=== PATIENT | female | born 1965 | race Caucasian/White ===

== ENCOUNTER 2018-07-31 13:42 | Emergency (ER) | payer OTHER ==
[~2018-07-31] VITALS: Ht 167.6 cm; Wt 136.1 kg
[~2018-07-31 13:42] MED LIST: ALBU90OI INH; ARIP10 PO; ASPI81EC PO; AZIT250 PO; BENZ100A PO; BUSP15 PO; BUSP5 PO; CEPH500 PO; CIPR500 PO; CITA20 PO; CLIN300 PO; CLON1 PO; CRUTCH2 XX; DULO30 PO; FLUO10 PO; GABA100 PO; GUAI600T33 PO; HYDACE5 PO; HYDACE5325 PO; IBUP800 PO; LORA10ER PO; METR500 PO; Motrin600 MG PO; Mucinex600 MG PO; NAPR550 PO; Norco 5-325 Ta1 EACH PO; OMEP20ER PO; OXYACE5T PO; PRAZ1 PO; Percocet 5-3251 EACH PO; QUET100 PO; QUET200 PO; ROPI2 PO; RXHYD5325 PO; RXTRAM50 PO; SULTRIDS PO; TRAM50 PO; TRAZ50; Ultram50 MG PO; Zofran Odt4 MG SL; [UNRECOGNIZED DRUG - REMARK]
[2018-07-31 15:32] LABS: BASOPHILS ABSOLUTE AUTO 0.04 K/mm3 (0.00-0.23); BASOPHILS PERCENT AUTO 1 % (0-2); EOSINOPHILS ABSOLUTE AUTO 0.32 K/mm3 (0.00-0.68); EOSINOPHILS PERCENT AUTO 5 % (0-6); Hematocrit 43.7 % (33.0-51.0); Hemoglobin 14.2 g/dL (11.5-16.0); IMMATURE GRAN ABSOLUTE AUTO 0.04 K/mm3 (0.00-0.10); IMMATURE GRAN PERCENT AUTO 1 % (0-1); LYMPHOCYTES ABSOLUTE AUTO 1.85 K/mm3 (0.84-5.20); LYMPHOCYTES PERCENT AUTO 29 % (21-46); MONOCYTES ABSOLUTE AUTO 0.52 K/mm3 (0.16-1.47); MONOCYTES PERCENT AUTO 8 % (4-13); Mean Corpuscular HGB Conc 32.5 g/dL (31.5-36.5); Mean Corpuscular Volume 92 fL (80-100); Mean Platelet Volume 9.8 fL (9.1-12.4); NEUTROPHILS ABSOLUTE AUTO 3.68 K/mm3 (1.96-9.15); NEUTROPHILS PERCENT AUTO 57 % (41-73); Platelet Count 185 K/mm3 (150-400); RDW Coefficient Variation 11.7 % (11.7-14.2); RDW Standard Deviation 39.6 fL (35.1-46.3); Red Blood Cell Count 4.74 M/mm3 (3.80-5.20); White Blood Cell Count 6.45 K/mm3 (4.00-11.30)
[2018-07-31 15:50] LABS: Alanine Aminotransfer (ALT/SGP 68 U/L (12-78); Albumin, Blood 3.4 g/dL (3.4-5.0); Albumin/Globulin Ratio 0.7 (0.8-1.8); Alk Phos 163 U/L (50-136); Anion Gap 8 mmol/L (6-16); Aspartate Aminotrans (AST/SGOT 39 U/L (12-37); Bilirubin, Total 0.4 mg/dL (0.1-1.0); Blood Urea Nitrogen 13 mg/dL (8-24); Bun/Creatinine Ratio 18.4 (12.0-20.0); CO2, Blood 24 mmol/L (21-32); Calcium, Blood 8.9 mg/dL (8.5-10.1); Chloride, Blood 100 mmol/L (98-108); Creatinine, Blood 0.71 mg/dL (0.40-1.00); Glomerular Filtration Rate >60 (60-); Glucose, Blood 319 mg/dL (70-99); Potassium, Blood 4.1 mmol/L (3.5-5.5); Sodium, Blood 132 mmol/L (136-145); Total Protein, Blood 8.4 g/dL (6.4-8.2)
[2018-07-31 17:06] LABS: Source, Urine Clean Catch
[2018-07-31 17:12] LABS: Bilirubin, Urine Neg (Neg); Blood, Urine 1+ (Neg); Glucose Qualitative, Urine 4+ (Neg); Ketones, Urine Neg (Neg); Leukocyte Esterase, Urine Neg (Neg); Nitrite, Urine Neg (Neg); Protein, Urine Neg (Neg); Urobilinogen, Urine NORM (Normal)
[2018-07-31 17:38] LABS: Appearance, Urine Clear (Clear); Color, Urine Yellow (P-Yellow); Red Blood Cells, Urine 0-2 /hpf (0-2)
[2018-07-31 17:39] LABS: Bacteria Many /hpf; Squamous Epithelial Cells Mod /hpf (Few)
== END 2018-07-31 21:07 | disposition home or self-care (01) ==
LOC: ER 13:42
PROVIDERS: Physician Assistant
DX: R73.9 Hyperglycemia, unspecified (principal); R11.0 Nausea; F31.9 Bipolar disorder, unspecified; F17.210 Nicotine dependence, cigarettes, uncomplicated; Z79.899 Other long term (current) drug therapy
CPT/HCPCS: 36415; 80053; 81001; 82947; 83036; 85025; 87086; 96360; 99284-25; J7030

== ENCOUNTER 2018-12-18 19:08 | Emergency (ER) | payer OTHER ==
[~2018-12-18] VITALS: Ht 167.6 cm; Wt 133.8 kg
[2018-12-18] MEDS ORDERED: GABA300 PO (19:38)
[2018-12-18] MEDS ORDERED: NAPR500 PO (19:38)
[2018-12-18] MEDS ORDERED: METF500 PO (19:39)
[2018-12-18] MEDS ORDERED: Percocet 5-3251 EACH PO (21:39)
== END 2018-12-18 22:07 | disposition home or self-care (01) ==
LOC: ER 19:08
DX: S76.012A Strain of muscle, fascia and tendon of left hip, initial encounter (principal); S39.012A Strain of muscle, fascia and tendon of lower back, initial encounter; S89.92XA Unspecified injury of left lower leg, initial encounter; F31.9 Bipolar disorder, unspecified; F41.0 Panic disorder [episodic paroxysmal anxiety]; F17.210 Nicotine dependence, cigarettes, uncomplicated; Z88.8 Allergy status to other drugs, medicaments and biological substances; W01.0XXA Fall on same level from slipping, tripping and stumbling without subsequent striking against object, initial encounter
CPT/HCPCS: 29505; 72100; 73502; 73562-LT; 99283-25; A9270-GY

== ENCOUNTER 2020-08-27 23:52 | Inpatient (IN) | payer OTHER ==
[~2020-08-27] VITALS: Ht 167.6 cm; Wt 120.2 kg
[~2020-08-27 23:52] MED LIST changes: +GABA300 PO; +METF500 PO; +NAPR500 PO
[2020-08-28 01:58] LABS: BASOPHILS ABSOLUTE AUTO 0.05 K/mm3 (0.00-0.23); BASOPHILS PERCENT AUTO 0 % (0-2); EOSINOPHILS ABSOLUTE AUTO 0.07 K/mm3 (0.00-0.68); EOSINOPHILS PERCENT AUTO 1 % (0-6); Hematocrit 43.9 % (33.0-51.0); Hemoglobin 14.1 g/dL (11.5-16.0); IMMATURE GRAN PERCENT AUTO 1 % (0-1); LYMPHOCYTES ABSOLUTE AUTO 0.98 K/mm3 (0.84-5.20); LYMPHOCYTES PERCENT AUTO 8 % (21-46); MONOCYTES ABSOLUTE AUTO 0.79 K/mm3 (0.16-1.47); MONOCYTES PERCENT AUTO 7 % (4-13); Mean Corpuscular HGB 29.4 pg (26.0-34.0); Mean Corpuscular HGB Conc 32.1 g/dL (31.5-36.5); Mean Corpuscular Volume 92 fL (80-100); Mean Platelet Volume 11.1 fL (9.1-12.4); NEUTROPHILS ABSOLUTE AUTO 10.22 K/mm3 (1.96-9.15); NEUTROPHILS PERCENT AUTO 84 % (41-73); Platelet Count 147 K/mm3 (150-400); RDW Coefficient Variation 11.5 % (11.7-14.2); RDW Standard Deviation 39.1 fL (35.1-46.3); White Blood Cell Count 12.21 K/mm3 (4.00-11.30)
[2020-08-28 02:33] LABS: Anion Gap 9 mmol/L (6-16); Blood Urea Nitrogen 7 mg/dL (8-24); Bun/Creatinine Ratio 11.2 (12.0-20.0); CO2, Blood 23 mmol/L (21-32); Calcium, Blood 8.7 mg/dL (8.5-10.1); Chloride, Blood 104 mmol/L (98-108); Creatinine, Blood 0.62 mg/dL (0.40-1.00); Glomerular Filtration Rate >60 (60-); Glucose, Blood 502 mg/dL (70-99); Potassium, Blood 3.5 mmol/L (3.5-5.5); Sodium, Blood 136 mmol/L (136-145)
[2020-08-28 03:55] LABS: Influenza A, PCR NEGATIVE (NEGATIVE); Influenza B, PCR NEGATIVE (NEGATIVE); Resp Syncytial Virus, PCR NEGATIVE (NEGATIVE); SARS-Cov-2 (COVID-19) PCR, MMC NEGATIVE (NEGATIVE)
--- NOTE | 2020-08-28 07:16 | NUR ---
SHIFT SUMMARY S/P R PERIRECTAL ABSCESS, A/O X4, VSS, CRITICAL LACTIC ACID RETURNED TO NORMAL RANGE AFTER ORDERED FLUID BOLUS, INDEPENDENT IN ROOM, LIFE PARTNER AT BEDSIDE TO ASSIST W/ HIGH ANXIETY AND REPORTED "FEAR OF HOSPITALS", VOIDING WELL, PASSING FLATUS, PAIN WELL CONTROLLED PER EMAR. ABSCESS STARTED BLEEDING SHORTLY AFTER ARRIVING TO THE UNIT, CLEANED RECTAL/ALEC AREA W/ WOUND CLEANSER AND STERILE 4X4 GUAZE, PLACE SOME STERILE GAUZE NEAR RECTUM TO ABSORB ANY DRAINING FLUIDS, DRAINAGE PRIMARILY SANGUINEOUS W/ A FEW SMALL CLOTS AND A MILD FOUL ODOR. PT REPORTS HAVING YEAST LATELY IN HER VAGINA, STATED SHE JUST WANTED US TO BE AWARE OF IT, WILL RELAY TO DAY RN TO BE ADRESSED BY DR. SAI OLIVARES IN REACH, WILL CONTINUE TO MONITOR AND REPORT TO ONCOMING DAY RN.
--- NOTE | 2020-08-28 10:23 | NUR ---
dr rojas in to see pt. orders obtained
--- NOTE | 2020-08-28 10:40 | NUR ---
PROVIDED FRESH ICE FOR PT'S HEADACHE
--- NOTE | 2020-08-28 10:41 | NUR ---
PROVIDED ICEPACK FOR PT HEADACHE
[2020-08-28 10:45] LABS: Anion Gap 10 mmol/L (6-16); Blood Urea Nitrogen 6 mg/dL (8-24); Bun/Creatinine Ratio 10.2 (12.0-20.0); CO2, Blood 21 mmol/L (21-32); Calcium, Blood 8.5 mg/dL (8.5-10.1); Chloride, Blood 109 mmol/L (98-108); Creatinine, Blood 0.59 mg/dL (0.40-1.00); Glomerular Filtration Rate >60 (60-); Glucose, Blood 330 mg/dL (70-99); Potassium, Blood 3.6 mmol/L (3.5-5.5); Sodium, Blood 140 mmol/L (136-145)
[2020-08-28 11:17] LABS: Source, Urine Clean Catch
[2020-08-28 11:31] LABS: Bilirubin, Urine Neg (Neg); Blood, Urine 4+ (Neg); Glucose Qualitative, Urine 4+ (Neg); Ketones, Urine 4+ (Neg); Leukocyte Esterase, Urine 1+ (Neg); Nitrite, Urine Neg (Neg); Protein, Urine 1+ (Neg); Specific Gravity, Urine 1.015 (1.003-1.022); Urobilinogen, Urine NORM (Normal)
[2020-08-28 11:57] LABS: U Amphetamine Screen Not Detected; U Barbituate Screen Not Detected; U Benzodiazapine Screen DETECTED; U Cannabinoids Screen DETECTED; U Cocaine Screen Not Detected; U Methadone Screen Not Detected; U Methamphetamine Screen Not Detected; U Opiates Screen DETECTED; U Phencyclidine Screen Not Detected
[2020-08-28 11:58] LABS: U Buprenorphine Screen Not Detected; U Oxycodone Screen Not Detected; U Propoxyphene Screen Not Detected
[2020-08-28 12:00] LABS: Appearance, Urine Clear (Clear); Color, Urine Yellow (P-Yellow)
[2020-08-28 12:02] LABS: Bacteria Few /hpf; Squamous Epithelial Cells Few /hpf (Few)
--- NOTE | 2020-08-28 12:44 | NUR ---
PT TO OR
--- NOTE | 2020-08-28 14:36 | NUR ---
08/28/20 1436 LALADINA RHODES PRE OP ANTIBIOTIC GIVEN IN PRE OP PRIOR TO PROCEDURE
--- NOTE | 2020-08-28 15:16 | NUR ---
PT ARRIVED TO UNIT FROM PACU. A&OX4. REPORTS PERINEAL/BUTTOCK PAIN IMPROVED. C/O OF [place]. PROVIDED WATER, ICE CHIPS AND JELLO. SBP IN 90S. PT ASYMPTOMATIC. IV FLUIDS INFUSING. MODERATE AMT DRAINAGE TO GAUZE FROM DRAIN. ADVISED PT TO CALL BEFORE GETTING UP FOR THE FIRST TIME DUE TO LINES/NIBP. LIFE PARTNER AT BEDSIDE.
--- NOTE | 2020-08-28 16:20 | NUR ---
PT UP TO RESTROOM VOIDED 400 ML DARK YELLOW URINE. NEW GAUZE PLACED IN MESH UNDERWEAR. NOW BACK TO BED. CALL LIGHT IN REACH.
--- NOTE | 2020-08-28 17:18 | NUR ---
SUMMARY PT S/P I&D THIS SHIFT. PT REPORTS FEELING IMPROVED AFTER PROCEDURE. VSS. TOLERATING PO. HAS BEEN UP TO VOID AND NEW GAUZE PLACED IN MESH UNDERWEAR. HOSPITALIST CONSULT OBTAINED TODAY AND ORDERS PLACED TO MANAGE BLOOD SUGARS. PT PLEASANT AND COOPERATIVE. LIFE PARTNER ROOMING IN. CALL LIGHT IN REACH.
--- NOTE | 2020-08-29 06:00 | NUR ---
SHIFT SUMMARY POD1 PERIRECTAL I&D, A/O X4, VSS, TOLERATING PO, VOIDING WELL, NO BM THIS SHIFT, DENIES N/V, DRESSING CHANGED THIS SHIFT PER ORDER W/ SMALL AMT SS DRAINAGE. PT CONTINUES TO BE ANXIOUS, LIFE PARTNER AT BEDSIDE APPEARS TO BE BENEFICIAL IN HELPING KEEP PT CALM. PLAN TO DISCHARGE TODAY 08/29/20 PER REPORT. CALL LIGHT IN REACH, WILL CONTINUE TO MONITOR AND REPORT TO ONCOMING DAY RN.
--- NOTE | 2020-08-29 09:03 | NUR ---
DR DE LA TORRE HERE TO SEE PT.
--- NOTE | 2020-08-29 12:06 | NUR ---
DR MYERS HERE TO SEE PT.
--- NOTE | 2020-08-29 12:20 | NUR ---
DR MYERS BEEN TO SEE PT, REPORTED TO HAVE HOSPITALIST ORDER DIABETIC MEDICATION FOR DISCHARGE. DR DE LA TORRE NOTIFIED.
--- NOTE | 2020-08-29 13:07 | NUR ---
Advance Directive(AD) education conducted. Upon receiving an admit referral for AD training, I visist patient. Patient is sitting up in bed and alert. Patient's life partner, Maya is bedside. Patient tells me about her medical issues while Maya asks many important questions about the AD. We discuss the content of the AD, the notary and witness requirements and the filing process. Patient and Maya exhibit clear comprehension an state that they will fill it out. Maya asks for a second AD to fill out for herself which I gladly supply. I will continue to remain available to patient and family.
[2020-08-29] MEDS ORDERED: BASAGLAR K100 UNIT/1 SC (17:10)
[2020-08-29] MEDS ORDERED: AMOCLA875 PO (17:11)
[2020-08-29] MEDS ORDERED: Norco 5-325 Ta1 EACH PO (17:11)
[2020-08-29] MEDS ORDERED: HUMALOG KW100 UNIT/1 SQ (17:13)
[2020-08-29] MEDS ORDERED: ATOR20 PO (17:16)
[2020-08-29] MEDS ORDERED: PROBIOTIC PO (17:17)
--- NOTE | 2020-08-29 17:35 | NUR ---
DISCHARGE: PT/FAMILY REPORTS UNDERSTANDING DISCHARGE INSTRUCTIONS WELL MONITORING AND RECORDING BLOOD SUGAR, WELL GIVING CBG MEDICATION ORDERED. PT SENT WITH BELONGINGS, SCRIPTS, PAPERWORK. OTHER MEDICATIONS CALLED TO [facility] IN [place] PER PT REQ. PT ALSO SENT WITH DRESSING SUPPLIES. PT BEEN SEEN BY CERTIFIED ORTHOTIST AND OTHER STAFF WHO ALSO ASSISTED WITH DIABETES EDUCATION. PT OUT BY W/C. IV OUT WNL. NO OTHER IV IN PLACE.
== END 2020-08-29 17:35 | disposition home or self-care (01) | DRG 854 ==
LOC: ER 23:52 → SURS 08-28 02:01
PROVIDERS: Nurse Practitioner Acute Care; Student in an Organized Health Care Education/Training Program; ADMIT Surgery
PROC: 0D9P0ZZ Drainage of Rectum, Open Approach (ICD-10-PCS; principal; 2020-08-28 12:15)
DX: A41.9 Sepsis, unspecified organism (principal); K61.1 Rectal abscess; L03.317 Cellulitis of buttock; Z68.41 Body mass index [BMI] 40.0-44.9, adult; Z20.822 Contact with and (suspected) exposure to COVID-19; E11.65 Type 2 diabetes mellitus with hyperglycemia; Z87.891 Personal history of nicotine dependence; F31.9 Bipolar disorder, unspecified; Z91.19 Patient's noncompliance with other medical treatment and regimen; F41.1 Generalized anxiety disorder; E66.01 Morbid (severe) obesity due to excess calories; E78.5 Hyperlipidemia, unspecified; R65.20 Severe sepsis without septic shock
CPT/HCPCS: 0241U; 36415; 72193; 80048; 81001; 81025; 82947; 83036; 83605; 85025; 87040; 96374; 96375; 99284-25; A9270; J0295; J1100; J1815; J2060; J2250; J2270; J2405; J2704; J2710; J3010; J7120; Q2038; Q9967

== ENCOUNTER 2024-04-05 18:55 | Emergency (ER) | payer OTHER ==
[~2024-04-05] VITALS: Ht 167.6 cm; Wt 106.6 kg
[~2024-04-05 18:55] MED LIST changes: +AMOCLA875 PO; +ATOR20 PO; +BASAGLAR K100 UNIT/1 SC; +GLIMEPIRIDE2 M2 PO; +GLIP10ER PO; +HUMALOG KW100 UNIT/1 SQ; +Lantus100 UNIT/1 SC; +PROBIOTIC PO; +SEMGLEE (Y100 UNIT/2 SQ
[2024-04-05] MEDS ORDERED: Ondansetron HCl 2 MG / ML 2ML Vial IV ONE (21:10)
[2024-04-05] MEDS ORDERED: Morphine Sulfate 4 MG/1 ML Injection IV ONE (21:10)
[2024-04-05 21:11] LABS: BASOPHILS ABSOLUTE AUTO 0.05 K/mm3 (0.00-0.23); BASOPHILS PERCENT AUTO 1 % (0-2); EOSINOPHILS ABSOLUTE AUTO 0.42 K/mm3 (0.00-0.68); EOSINOPHILS PERCENT AUTO 6 % (0-6); Hematocrit 41.8 % (33.0-51.0); Hemoglobin 14.1 g/dL (11.5-16.0); IMMATURE GRAN ABSOLUTE AUTO 0.05 K/mm3 (0.00-0.10); IMMATURE GRAN PERCENT AUTO 1 % (0-1); LYMPHOCYTES ABSOLUTE AUTO 1.84 K/mm3 (0.84-5.20); LYMPHOCYTES PERCENT AUTO 25 % (21-46); MONOCYTES ABSOLUTE AUTO 0.57 K/mm3 (0.16-1.47); MONOCYTES PERCENT AUTO 8 % (4-13); Mean Corpuscular HGB 29.2 pg (26.0-34.0); Mean Corpuscular HGB Conc 33.7 g/dL (31.5-36.5); Mean Corpuscular Volume 87 fL (80-100); Mean Platelet Volume 10.7 fL (9.1-12.4); NEUTROPHILS PERCENT AUTO 60 % (41-73); Platelet Count 174 K/mm3 (150-400); RDW Coefficient Variation 12.1 % (11.7-14.2); RDW Standard Deviation 38.5 fL (35.1-46.3); Red Blood Cell Count 4.83 M/mm3 (3.80-5.20); White Blood Cell Count 7.43 K/mm3 (4.00-11.30)
[2024-04-05 21:24] LABS: Albumin, Blood 3.4 g/dL (3.4-5.0); Albumin/Globulin Ratio 0.7 (0.8-1.8); Bilirubin, Total 0.6 mg/dL (0.1-1.0); Bun/Creatinine Ratio 20.8 (12.0-20.0); Calcium, Blood 10.3 mg/dL (8.5-10.1); Creatinine, Blood 0.63 mg/dL (0.40-1.00); Globulin, Blood 4.7 g/dL (2.2-4.0); Potassium, Blood 3.8 mmol/L (3.5-5.5); Total Protein, Blood 8.1 g/dL (6.4-8.2)
[2024-04-05 23:17] LABS: Source, Urine Clean Catch
[2024-04-05 23:20] LABS: Bilirubin, Urine Neg (Neg); Blood, Urine Neg (Neg); Glucose Qualitative, Urine Neg (Neg); Ketones, Urine Neg (Neg); Nitrite, Urine Neg (Neg); Urobilinogen, Urine NORM (Normal)
[2024-04-05 23:37] LABS: Leukocyte Esterase, Urine Neg (Neg); Protein, Urine 1+ (Neg); pH, Urine 6.5 (5.0-8.0)
[2024-04-05 23:44] LABS: Appearance, Urine Clear (Clear); Color, Urine Pale Yellow (P-Yellow)
[2024-04-06] VITALS: BP 134/93
[2024-04-06] MEDS ORDERED: FAMO20 PO (00:25)
[2024-04-06] MEDS ORDERED: ONDA4 PO (00:25)
== END 2024-04-06 00:48 | disposition home or self-care (01) ==
LOC: ER 18:55
PROVIDERS: Student in an Organized Health Care Education/Training Program
DX: K52.9 Noninfective gastroenteritis and colitis, unspecified (principal); Z87.891 Personal history of nicotine dependence; Z79.4 Long term (current) use of insulin; Z88.1 Allergy status to other antibiotic agents
CPT/HCPCS: 71260; 74177; 80053; 82947; 83690; 84484; 85025; 85379; 87086; 96374-59; 96375; 99284-25; J2270; J2405; Q9967

== ENCOUNTER 2024-05-07 21:38 | Inpatient (IN) | payer OTHER ==
[~2024-05-07] VITALS: Ht 165.1 cm; Wt 96.2 kg
[~2024-05-07 21:38] MED LIST changes: +FAMO20 PO; +ONDA4 PO
[2024-05-07] MEDS ORDERED: Ondansetron HCl 2 MG / ML 2ML Vial IV ONE (21:50)
[2024-05-07 22:05] LABS: BASOPHILS PERCENT AUTO 0 % (0-2); EOSINOPHILS PERCENT AUTO 0 % (0-6); Hematocrit 40.2 % (33.0-51.0); Hemoglobin 13.6 g/dL (11.5-16.0); IMMATURE GRAN ABSOLUTE AUTO 0.03 K/mm3 (0.00-0.10); IMMATURE GRAN PERCENT AUTO 1 % (0-1); LYMPHOCYTES ABSOLUTE AUTO 0.58 K/mm3 (0.84-5.20); LYMPHOCYTES PERCENT AUTO 11 % (21-46); MONOCYTES ABSOLUTE AUTO 0.14 K/mm3 (0.16-1.47); MONOCYTES PERCENT AUTO 3 % (4-13); Mean Corpuscular HGB 29.4 pg (26.0-34.0); Mean Corpuscular HGB Conc 33.8 g/dL (31.5-36.5); Mean Corpuscular Volume 87 fL (80-100); Mean Platelet Volume 9.3 fL (9.1-12.4); NEUTROPHILS ABSOLUTE AUTO 4.45 K/mm3 (1.96-9.15); NEUTROPHILS PERCENT AUTO 86 % (41-73); Platelet Count 148 K/mm3 (150-400); RDW Coefficient Variation 12.7 % (11.7-14.2); RDW Standard Deviation 40.4 fL (35.1-46.3); Red Blood Cell Count 4.62 M/mm3 (3.80-5.20)
[2024-05-07 22:29] LABS: Albumin, Blood 3.5 g/dL (3.4-5.0); Albumin/Globulin Ratio 0.7 (0.8-1.8); Bilirubin, Total 1.2 mg/dL (0.1-1.0); Calcium, Blood 9.5 mg/dL (8.5-10.1); Creatinine, Blood 0.63 mg/dL (0.40-1.00); Globulin, Blood 5.1 g/dL (2.2-4.0); Potassium, Blood 3.3 mmol/L (3.5-5.5); Total Protein, Blood 8.6 g/dL (6.4-8.2)
[2024-05-08] MEDS ORDERED: DiphenhydrAMINE HCl 50 MG/ML 1ML Vial IV ONE (04:25)
[2024-05-08] MEDS ORDERED: Lactated Ringer's 1,000 ML IV SCH ×2 (04:25→06:00)
[2024-05-08] MEDS ORDERED: Prochlorperazine Edisylate 10 mg Vial IV ONE (04:25)
[2024-05-08] MEDS ORDERED: Potassium Chl 20MEQ/Water100ML 100 ML IV SCH (04:25)
[2024-05-08] MEDS ORDERED: Ondansetron HCl 2 MG / ML 2ML Vial IV PRN ×2 (05:29→07:10)
[2024-05-08] MEDS ORDERED: Morphine Sulfate 4 MG/1 ML Injection IV PRN ×2 (05:30→07:10)
[2024-05-08] MEDS ORDERED: FLU VACC TS2024-25(6MOS UP)/PF 45 MCG/0.5 ML SYRINGE IM SCH (05:35)
[2024-05-08] MEDS ORDERED: Acetaminophen 650 MG Supp PR PRN (05:40)
[2024-05-08] MEDS ORDERED: Acetaminophen 325 MG TABLET PO PRN (05:40)
[2024-05-08] MEDS ORDERED: Pantoprazole Sodium 40 MG Injection IV SCH (06:00)
[2024-05-08] MEDS ORDERED: Potassium Chloride 20 MEQ/15 ML UDC PO ONE (06:30)
[2024-05-08] MEDS ORDERED: Insulin Human Lispro 100 Units/ML 3ML Syringe SC SCH ×2 (07:30→18:00)
[2024-05-08] MEDS ORDERED: Lactated Ringer's 1,000 ML IV ONE (07:49)
[2024-05-08 08:20] LABS: BASOPHILS ABSOLUTE AUTO 0.01 K/mm3 (0.00-0.23); BASOPHILS PERCENT AUTO 0 % (0-2); EOSINOPHILS PERCENT AUTO 0 % (0-6); Hematocrit 34.1 % (33.0-51.0); IMMATURE GRAN ABSOLUTE AUTO 0.04 K/mm3 (0.00-0.10); IMMATURE GRAN PERCENT AUTO 1 % (0-1); LYMPHOCYTES ABSOLUTE AUTO 0.65 K/mm3 (0.84-5.20); LYMPHOCYTES PERCENT AUTO 19 % (21-46); MONOCYTES ABSOLUTE AUTO 0.21 K/mm3 (0.16-1.47); MONOCYTES PERCENT AUTO 6 % (4-13); Mean Corpuscular HGB 29.9 pg (26.0-34.0); Mean Corpuscular HGB Conc 35.2 g/dL (31.5-36.5); Mean Corpuscular Volume 85 fL (80-100); Mean Platelet Volume 10.4 fL (9.1-12.4); NEUTROPHILS ABSOLUTE AUTO 2.55 K/mm3 (1.96-9.15); NEUTROPHILS PERCENT AUTO 74 % (41-73); Platelet Count 106 K/mm3 (150-400); RDW Coefficient Variation 12.4 % (11.7-14.2); RDW Standard Deviation 38.5 fL (35.1-46.3); Red Blood Cell Count 4.01 M/mm3 (3.80-5.20); White Blood Cell Count 3.46 K/mm3 (4.00-11.30)
[2024-05-08 08:30] LABS: Albumin, Blood 2.9 g/dL (3.4-5.0); Albumin/Globulin Ratio 0.7 (0.8-1.8); Bilirubin, Total 1.1 mg/dL (0.1-1.0); Bun/Creatinine Ratio 27.7 (12.0-20.0); Calcium, Blood 8.7 mg/dL (8.5-10.1); Creatinine, Blood 0.58 mg/dL (0.40-1.00); Globulin, Blood 4.1 g/dL (2.2-4.0); Magnesium, Blood 1.8 mg/dL (1.6-2.4); Phosphorus, Blood 2.9 mg/dL (2.5-4.9); Potassium, Blood 3.3 mmol/L (3.5-5.5)
[2024-05-08] MEDS ORDERED: Potassium Chloride 20 MEQ TabCR PO ONE (10:00)
[2024-05-08] MEDS ORDERED: LORazepam 0.5 MG Tab PO PRN (12:20)
[2024-05-08] MEDS ORDERED: OXYCODONE PO (12:23)
[2024-05-08] MEDS ORDERED: OLAN2.5 PO (12:24)
[2024-05-08] MEDS ORDERED: PROM25 PO (12:25)
[2024-05-08] MEDS ORDERED: Ondansetron Odt8 MG MM (12:25)
[2024-05-08] MEDS ORDERED: PANT40 PO (12:28)
[2024-05-08] MEDS ORDERED: CLON.5 PO (12:29)
--- NOTE | 2024-05-08 14:03 | NUR ---
ADMIT PATIENT ADMITTED FROM THE ER AT 1155. PATIENT SETTLED INTO ROOM. PATIENT ORIENTED TO CALL LIGHT AND ROOM. PATIENT VOMITING UPON ARRIVAL. PATIENT MEDICATED WITH ZOFRAN. PATIENT IS A&OX4. PATIENT AT BEDSIDE. ADMISSION IS COMPLETE. PATIENT REQUESTING SOMETHING FOR ANXIETY. DR. RODRIGUEZ NOTIFIED, NEW ORDERS FOR PO ATIVAN PRN. MEDICATED X1 WITH PO ATIVAN. PATIENT IS IND IN ROOM. PATIENT HAS PEG TUBE. PATIENT HAS A MEDIPORT, NOT CURRENTLY ACCESSED. PATIENT TOLERATING SMALL SIPS OF WATER. PATIENT IS PLEASANT AND COOPERATIVE WITH CARE. REPORT GIVEN TO BELLA MAZARIEGOS.
--- NOTE | 2024-05-08 16:07 | NUR ---
SHIFT SUMMARY MS DIXON WAS ADMITTED TO MEDICAL UNIT FROM ER TODAY AND CARE WAS ASSUMED AT 1300HRS FROM ADMITTING RN. MS DIXON HAS VERY SUPPORTIVE SPOUSE AT BEDSIDE WHO WILL STAY WITH MS DIXON WHILE SHE IS ADMITTED. MS DIXON HAS NAUSEA REQUIRING 8MG IV ZOFRAN SINCE ADMISSION, ON MAINTAINANCE IVF. SHE IS VERY TIRED. UP WITH 3 EPISODES OF DIARRHEA SINCE ADMISSION, SAMPLE REQUESTED, GI PANEL PENDING ONCE SAMPLE OBTAINED AND ISOLATION PRECAUTIONS IN PLACE. ON CONTINUOUS PULSE OX IN THE 90S ON ROOM AIR. PALIATIVE CARE RN JASON NOTIFIED OF CONSULT. PT RESTING IN BED, CALL LIGHT IN REACH, BED LOW, SPOUSE AT BEDSIDE.
[2024-05-08] MEDS ORDERED: Promethazine HCl 12.5 MG Supp PR PRN (16:35)
[2024-05-08] MEDS ORDERED: Aa 4.25%/Calcium/Lytes/D5w 1,000 ML IV SCH (16:45)
[2024-05-08] MEDS ORDERED: [UNRECOGNIZED DRUG - MIXTURE] IV SCH (16:45)
[2024-05-08 19:44] LABS: Adenovirus F 40/41 Not Detected (NOT DETECT); Astrovirus Not Detected (NOT DETECT); Campylobacter Sp Not Detected (NOT DETECT); Cryptosporidium Not Detected (NOT DETECT); Cyclospora Cayetanensis Not Detected (NOT DETECT); E. Coli O157 Not Detected (NOT DETECT); Entamoeba Histolytica Not Detected (NOT DETECT); Enteroaggregative E. coli-EAEC Not Detected (NOT DETECT); Enteropathogenic E. coli-EPEC Not Detected (NOT DETECT); Enterotoxigenic E. coli-ETEC Not Detected (NOT DETECT); Giardia Lamblia Not Detected (NOT DETECT); Norovirus GI/GII Not Detected (NOT DETECT); Plesiomonas Shigelloides Not Detected (NOT DETECT); Rotavirus A Not Detected (NOT DETECT); Salmonella Sp Not Detected (NOT DETECT); Sapovirus Not Detected (NOT DETECT); Shiga Toxin-prod E. coli-STEC Not Detected (NOT DETECT); Shigella/Enteroin E. coli-EIEC Not Detected (NOT DETECT); Vibrio Cholerae Not Detected (NOT DETECT); Vibrio Sp Not Detected (NOT DETECT); Yersinia Enterocolitica Not Detected (NOT DETECT)
[2024-05-08] MEDS ORDERED: OLANZapine 5 MG Tab PO SCH (21:00)
[2024-05-08] MEDS ORDERED: ClonazePAM 0.5 MG Tab PO SCH (21:00)
--- NOTE | 2024-05-08 21:19 | NUR ---
PT APPEARED TO BE SLEEPING AND HAS BEEN HAVING TROUBLE STAYING ASLEEP. WILL APPROACH PT LATER PT HAS BEEN NOT ABLE TO KEEP MEDICINE DOWN.
[2024-05-09 01:39] VITALS: BP 116/72
[2024-05-09 06:21] LABS: Anion Gap 10 mmol/L (3-11); Blood Urea Nitrogen 15 mg/dL (8-24); Bun/Creatinine Ratio 23.4 (12.0-20.0); CO2, Blood 24 mmol/L (21-32); Calcium, Blood 8.5 mg/dL (8.5-10.1); Chloride, Blood 107 mmol/L (98-108); Creatinine, Blood 0.64 mg/dL (0.40-1.00); Glomerular Filtration Rate 102 (60-); Glucose, Blood 143 mg/dL (70-99); Magnesium, Blood 1.8 mg/dL (1.6-2.4); Phosphorus, Blood 2.6 mg/dL (2.5-4.9); Potassium, Blood 2.7 mmol/L (3.5-5.5); Sodium, Blood 138 mmol/L (136-145); Triglycerides 90 mg/dL (30-160)
--- NOTE | 2024-05-09 06:49 | NUR ---
SHIFT SUMMARY PT TOOK SHOWER WITH ASSIST. HAD EPISODES OF NAUSEA, TREATED WITH ZOFRAN. PT HAD HS MEDICATION CRUSHED AND DELIVERED THROUGH PEG TUBE. DRESSING CHANGED ON PEG TUBE. PT STATED IT FELT WEIRD BUT TOLERATED AND KEPT MEDICATION DOWN. PATIENT SLEPT ON AND OFF THROUGH NIGHT. CALLED ED TO LOCATE PT GLASSES THAT WERE MISSING. ED STATED THEY DID NOT FIND ANY IN THE ROOM PT WAS IN. GAVE EXTRA BEDDING TO , WHO STAYED THE NIGHT. BED IN LOW POSITION, CALL LIGHT WITHIN REACH, RAILS TIMES 2.
[2024-05-09 07:33] VITALS: BP 115/59
[2024-05-09] MEDS ORDERED: Potassium Chloride 20 MEQ TabCR PO ONE (08:00)
[2024-05-09] MEDS ORDERED: Enoxaparin 40 MG/0.4 ML SYR SC SCH (09:00)
[2024-05-09] MEDS ORDERED: Fat Emulsion 20 % IV 250 ML IV SCH (09:00)
[2024-05-09] MEDS ORDERED: Prochlorperazine Edisylate 10 mg Vial IV PRN (10:50)
[2024-05-09] MEDS ORDERED: Loperamide HCL 1 MG/7.5 ML UDC PO PRN (10:55)
[2024-05-09] MEDS ORDERED: LORazepam 2 MG/ML 1ML Injection IV PRN (10:55)
[2024-05-09] MEDS ORDERED: DiphenhydrAMINE HCL 25 MG Cap PO PRN (10:55)
[2024-05-09] MEDS ORDERED: Potassium Chloride 20 MEQ/15 ML UDC PO ONE (11:00)
[2024-05-09] MEDS ORDERED: DiphenhydrAMINE HCl 50 MG/ML 1ML Vial IV PRN (13:05)
[2024-05-09] MEDS ORDERED: Banana Flakes/Tos 1 EA Powder Pack PT SCH (14:00)
[2024-05-09 15:16] VITALS: BP 102/82
--- NOTE | 2024-05-09 18:14 | NUR ---
SHIFT SUMMARY A&OX4, COOPERATIVE, EXPRESSES NEED TO SLEEP BUT CANNOT DUE TO GI PAIN. N/V TODAY WHILE AWAKE AND EXPRESSED PAIN. MEDICATED PER EMAR. ALSEEP AFTER MEDICATIONS. CONTINUING CLINIMIX OR IV NUTRITION. TOLERATING WELL. SIGNIFICANT OTHER HELPING PT IN ROOM ALL DAY ALONG WITH HELPING ADMINISTER MEDS WITH SUPERVISION OF RN. BED IN LOWEST POSITION, CALL LIGHT WITHIN REACH.
[2024-05-09 19:28] VITALS: BP 134/79
[2024-05-10] MEDS ORDERED: LORazepam 1 MG Tab PO PRN (01:50)
--- NOTE | 2024-05-10 05:24 | NUR ---
SHIFT SUMMARY PT TOOK SHOWER WITH ASSIST. PT TOOK HS MEDICATION ORALLY AND HAD BANANA FLAKES. DRESSING CHANGED ON PEG TUBE. LOST ACCESS TO IV. UNABLES TO FIND ALTERNATE ACCESS SITE. CALLED CARGO VESSEL STEWARDESS RESIDENT TO CHANGE MORNING IV MED TO PO MEDS. CHANGED MORNING PROTONIX AND PRN ATIVAN TO PO. WAS ABLE TO HAVE POWERGLIDE INSTALLED. PRN BENADRYL. BOTH APPEARED TO BE SLEEPING BY 0400. STAYED THE NIGHT. BED IN LOW POSITION, CALL LIGHT WITHIN REACH, RAILS TIMES 2.
[2024-05-10] MEDS ORDERED: Pantoprazole Sodium 40 MG Tab PO SCH (06:00)
[2024-05-10 09:45] LABS: Bun/Creatinine Ratio 20.5 (12.0-20.0); Calcium, Blood 8.4 mg/dL (8.5-10.1); Creatinine, Blood 0.63 mg/dL (0.40-1.00); Magnesium, Blood 1.7 mg/dL (1.6-2.4); Phosphorus, Blood 2.7 mg/dL (2.5-4.9); Potassium, Blood 2.9 mmol/L (3.5-5.5)
[2024-05-10] MEDS ORDERED: Potassium Chloride 20 MEQ/15 ML UDC PO ONE (11:00)
--- NOTE | 2024-05-10 11:47 | NUR ---
8140 THIS RN WENT INTO ROOM TO ADMINISTER POTASSIUM VIA PEG TUBE. PT'S (CLIENT SUPPORT CONSULTANT) REFUSED MEDICATION AT THIS TIME. THIS RN INFORMED THE THAT THE MEDICATION IS AN IMPORTANT ELECTRLYTE FOR THE PTS HEART. INFORMED THIS RN WE WOULD DO IT "LATER".
[2024-05-10 15:15] VITALS: BP 110/60
--- NOTE | 2024-05-10 17:32 | NUR ---
SHIFT SUMMARY PT A&OX3/4, SPOUSE IN ROOM (INFORMS STAFF ABOUT PT NEEDS). STAYED IN BED ALL DAY WITH EYES CLOSED, AND SPOUSE HELPED PT AMBULATE TO BATHROOM. WAS ABLE TO GET POTASSIUM INTO PATIENT APPROXIMATELY 20MINS AGO VIA PEG TUBE. TOLERATING PO FOODS SOFT AND BITE SIZE. [place]ANG[place]OO PUMP CONNECTING TO PEG TUBE FOR NUTRITION. BED IN LOWEST POSITION, CALL LIGHT WITHIN REACH.
[2024-05-10 19:27] VITALS: BP 130/78
--- NOTE | 2024-05-11 05:33 | NUR ---
SHIFT SUMMARY PT TOOK HS MEDICATION ORALLY. ASKED FOR CRACKERS. FEED TUBE ADJUST AND INCREASED PER PT TOLERATION CURRENTLY 35 NOW. PT ANXIOUS ABOUT WANTING TO GO HOME. BED IN LOW POSITION, CALL LIGHT WITHIN REACH, RAILS TIMES 2.
[2024-05-11 07:37] VITALS: BP 111/77
[2024-05-11 09:42] LABS: BASOPHILS ABSOLUTE AUTO 0.01 K/mm3 (0.00-0.23); BASOPHILS PERCENT AUTO 0 % (0-2); EOSINOPHILS ABSOLUTE AUTO 0.04 K/mm3 (0.00-0.68); EOSINOPHILS PERCENT AUTO 1 % (0-6); Hematocrit 40.8 % (33.0-51.0); IMMATURE GRAN ABSOLUTE AUTO 0.02 K/mm3 (0.00-0.10); IMMATURE GRAN PERCENT AUTO 1 % (0-1); LYMPHOCYTES ABSOLUTE AUTO 0.62 K/mm3 (0.84-5.20); LYMPHOCYTES PERCENT AUTO 19 % (21-46); MONOCYTES ABSOLUTE AUTO 0.25 K/mm3 (0.16-1.47); MONOCYTES PERCENT AUTO 8 % (4-13); Mean Corpuscular HGB 29.4 pg (26.0-34.0); Mean Corpuscular HGB Conc 34.3 g/dL (31.5-36.5); Mean Corpuscular Volume 86 fL (80-100); Mean Platelet Volume 9.6 fL (9.1-12.4); NEUTROPHILS ABSOLUTE AUTO 2.36 K/mm3 (1.96-9.15); NEUTROPHILS PERCENT AUTO 72 % (41-73); Platelet Count 116 K/mm3 (150-400); RDW Coefficient Variation 12.3 % (11.7-14.2); RDW Standard Deviation 38.7 fL (35.1-46.3); Red Blood Cell Count 4.76 M/mm3 (3.80-5.20)
[2024-05-11 10:03] LABS: Albumin, Blood 3.3 g/dL (3.4-5.0); Albumin/Globulin Ratio 0.7 (0.8-1.8); Bilirubin, Total 0.8 mg/dL (0.1-1.0); Bun/Creatinine Ratio 17.9 (12.0-20.0); Calcium, Blood 8.6 mg/dL (8.5-10.1); Creatinine, Blood 0.61 mg/dL (0.40-1.00); Globulin, Blood 4.5 g/dL (2.2-4.0); Magnesium, Blood 1.8 mg/dL (1.6-2.4); Percent Saturation 13.2 % (15.0-50.0); Phosphorus, Blood 2.2 mg/dL (2.5-4.9); Total Protein, Blood 7.8 g/dL (6.4-8.2)
--- NOTE | 2024-05-11 13:13 | NUR ---
Pt laying in bed, visiting with her partner, denies pain, a/ox4, pleasant and cooperative with care, follows commands well, lungs are clear t/o, resp even and unlabored, no cough noted, on r/a, hrr, no edema noted, power glide to dimitris site is clear and patent, btx4, has peg tube with feed going at 35mls/hr, did try to increase to 40, got a bit nauseous, abd flat soft nontender, voids without diff, skin c/w/d/, canelo randall call light in reach.
[2024-05-11] MEDS ORDERED: BANATROL PLUS1 EAC1 PT (14:53)
[2024-05-11] MEDS ORDERED: Acetaminophen650 M1 PO (14:53)
[2024-05-11] MEDS ORDERED: LOPERAMIDE1 MG/7.10 PO (14:54)
[2024-05-11] MEDS ORDERED: COMPAZINE IM (14:54)
--- NOTE | 2024-05-11 16:11 | NUR ---
pt has been discharged to home, removed power glide intact, went over instructions with her and s.o. they verbalized understanding, new medications were faxed to [facility], pt has all her belongings. will leave via wheelchair when dressed.
--- NOTE | 2024-05-11 16:33 | NUR ---
pt left via wheelchair with superintendent commissary and s.o. in attendence, has all her belongings.
[2024-05-11] MEDS ORDERED: Insulin Glargine-Yfgn 100 Unit/mL 3 ML SYR SC SCH (21:00)
[2024-05-11] MEDS ORDERED: Glimepiride 1 MG Tablet PO SCH (21:00)
== END 2024-05-11 16:24 | disposition home or self-care (01) | DRG 392 ==
LOC: ER 21:38 → ERHOLD 05-08 05:47 → MEDS 05-08 05:47
PROVIDERS: Emergency Medicine; Family Medicine; Hospitalist; Internal Medicine; ADMIT Internal Medicine
DX: R11.2 Nausea with vomiting, unspecified (principal); C15.9 Malignant neoplasm of esophagus, unspecified; E11.9 Type 2 diabetes mellitus without complications; F43.10 Post-traumatic stress disorder, unspecified; F41.0 Panic disorder [episodic paroxysmal anxiety]; F60.3 Borderline personality disorder; T45.1X5A Adverse effect of antineoplastic and immunosuppressive drugs, initial encounter; M17.0 Bilateral primary osteoarthritis of knee; Z90.49 Acquired absence of other specified parts of digestive tract; Z98.890 Other specified postprocedural states; Z87.891 Personal history of nicotine dependence; Z88.8 Allergy status to other drugs, medicaments and biological substances; Z79.899 Other long term (current) drug therapy; Z79.84 Long term (current) use of oral hypoglycemic drugs; Z79.4 Long term (current) use of insulin
CPT/HCPCS: 36415; 49465; 80048; 80053; 82728; 82947; 83540; 83550; 83735; 84100; 84478; 85025; 87507; 93005; 93010; 94760; 94762; 96374; 96375; 99285-25; A9270; C1751; J0780; J1200; J1650; J1815; J2060; J2270; J2405; J2470; J3411; J3480; J7120; Q9963

== ENCOUNTER 2024-07-27 19:28 | Emergency (ER) | payer OTHER ==
[~2024-07-27] VITALS: Ht 167.6 cm; Wt 100.2 kg
[~2024-07-27 19:28] MED LIST changes: +Acetaminophen650 M1 PO; +BANATROL PLUS1 EAC1 PT; +CLON.5 PO; +COMPAZINE IM; +LOPERAMIDE1 MG/7.10 PO; +OLAN2.5 PO; +OXYCODONE PO; +Ondansetron Odt8 MG MM; +PANT40 PO; +PROM25 PO
[2024-07-27 20:11] LABS: BASOPHILS ABSOLUTE AUTO 0.02 K/mm3 (0.00-0.23); BASOPHILS PERCENT AUTO 0 % (0-2); EOSINOPHILS ABSOLUTE AUTO 0.12 K/mm3 (0.00-0.68); EOSINOPHILS PERCENT AUTO 3 % (0-6); Hematocrit 37.8 % (33.0-51.0); Hemoglobin 12.9 g/dL (11.5-16.0); IMMATURE GRAN ABSOLUTE AUTO 0.07 K/mm3 (0.00-0.10); IMMATURE GRAN PERCENT AUTO 2 % (0-1); LYMPHOCYTES ABSOLUTE AUTO 0.77 K/mm3 (0.84-5.20); LYMPHOCYTES PERCENT AUTO 16 % (21-46); MONOCYTES ABSOLUTE AUTO 0.45 K/mm3 (0.16-1.47); MONOCYTES PERCENT AUTO 10 % (4-13); Mean Corpuscular HGB 30.9 pg (26.0-34.0); Mean Corpuscular HGB Conc 34.1 g/dL (31.5-36.5); Mean Corpuscular Volume 91 fL (80-100); Mean Platelet Volume 9.9 fL (9.1-12.4); NEUTROPHILS ABSOLUTE AUTO 3.28 K/mm3 (1.96-9.15); NEUTROPHILS PERCENT AUTO 70 % (41-73); Platelet Count 125 K/mm3 (150-400); RDW Coefficient Variation 13.5 % (11.7-14.2); RDW Standard Deviation 44.3 fL (35.1-46.3); Red Blood Cell Count 4.17 M/mm3 (3.80-5.20); White Blood Cell Count 4.71 K/mm3 (4.00-11.30)
[2024-07-27 20:27] LABS: Albumin, Blood 3.2 g/dL (3.4-5.0); Albumin/Globulin Ratio 0.6 (0.8-1.8); Bilirubin, Total 0.7 mg/dL (0.1-1.0); Bun/Creatinine Ratio 14.5 (12.0-20.0); Calcium, Blood 9.6 mg/dL (8.5-10.1); Creatinine, Blood 0.62 mg/dL (0.40-1.00); Potassium, Blood 3.7 mmol/L (3.5-5.5); Total Protein, Blood 8.2 g/dL (6.4-8.2)
[2024-07-27 21:03] LABS: Source, Urine Clean Catch
[2024-07-27 21:13] LABS: Appearance, Urine Hazy (Clear); Bilirubin, Urine Neg (Neg); Blood, Urine Neg (Neg); Color, Urine Yellow (P-Yellow); Glucose Qualitative, Urine Neg (Neg); Ketones, Urine Neg (Neg); Leukocyte Esterase, Urine 1+ (Neg); Nitrite, Urine Neg (Neg); Protein, Urine 1+ (Neg); Urobilinogen, Urine NORM (Normal)
[2024-07-27 21:20] LABS: Bacteria Mod /hpf; Red Blood Cells, Urine Not Seen /hpf (0-2); Squamous Epithelial Cells Few /hpf (Few)
[2024-07-28] MEDS ORDERED: CefTRIAXone Sodium 1,000 MG in NS 50 ML IV ONE (01:30)
[2024-07-28] MEDS ORDERED: CEPH500 PO (01:31)
[2024-07-28] MEDS ORDERED: Cephalexin Monohydrate 500 MG Cap PO ONE (02:10)
[2024-07-28 02:25] VITALS: BP 125/82
== END 2024-07-28 02:27 | disposition home or self-care (01) ==
LOC: ER 19:28
PROVIDERS: Student in an Organized Health Care Education/Training Program
DX: N39.0 Urinary tract infection, site not specified (principal); F43.10 Post-traumatic stress disorder, unspecified; M19.90 Unspecified osteoarthritis, unspecified site; E11.9 Type 2 diabetes mellitus without complications; Z87.891 Personal history of nicotine dependence; Z79.899 Other long term (current) drug therapy; Z79.4 Long term (current) use of insulin; Z88.1 Allergy status to other antibiotic agents; Z88.0 Allergy status to penicillin; Z91.048 Other nonmedicinal substance allergy status; Z88.8 Allergy status to other drugs, medicaments and biological substances
CPT/HCPCS: 74177; 80053; 81001; 83690; 85025; 87086; 99284-25; A9270; J0696; Q9967

== ENCOUNTER 2024-10-08 17:30 | Emergency (ER) | payer OTHER ==
[~2024-10-08] VITALS: Ht 167.6 cm; Wt 101.2 kg
[2024-10-08 20:31] VITALS: BP 106/87
[2024-10-08] MEDS ORDERED: Clotrimazole 1% Cream 15 GM Tube TOP ONE (21:40)
[2024-10-08] MEDS ORDERED: ALEVAZOL56.7 G1 TOP (23:24)
== END 2024-10-09 00:09 | disposition home or self-care (01) ==
LOC: ER 17:30
DX: K94.23 Gastrostomy malfunction (principal); L30.4 Erythema intertrigo; E11.9 Type 2 diabetes mellitus without complications; Z87.891 Personal history of nicotine dependence; Z88.6 Allergy status to analgesic agent; Z88.0 Allergy status to penicillin; Z91.048 Other nonmedicinal substance allergy status; Z88.8 Allergy status to other drugs, medicaments and biological substances; Z79.4 Long term (current) use of insulin; Z79.899 Other long term (current) drug therapy
CPT/HCPCS: 43762; 49465; 99282-25; A9270; Q9963

== ENCOUNTER 2025-02-02 20:31 | Emergency (ER) | payer OTHER ==
[~2025-02-02] VITALS: Ht 167.6 cm; Wt 100.2 kg
[~2025-02-02 20:31] MED LIST changes: +ALEVAZOL56.7 G1 TOP
[2025-02-02 20:44] VITALS: BP 108/79
[2025-02-02] MEDS ORDERED: Ketorolac Tromethamine 15mg Vial IM ONE (22:45)
[2025-02-03] MEDS ORDERED: ASPERFLEX1 EACH TOP (00:04)
[2025-02-03] MEDS ORDERED: RX Prepack 6 Tabs Oxycodone 5mg UD ONE ×2 (00:15→23:55)
[2025-02-03] MEDS ORDERED: CLON.5 PO (19:38)
== END 2025-02-03 00:33 | disposition home or self-care (01) ==
LOC: ER 20:31
DX: S90.122A Contusion of left lesser toe(s) without damage to nail, initial encounter (principal); S20.219A Contusion of unspecified front wall of thorax, initial encounter; K94.23 Gastrostomy malfunction; M19.90 Unspecified osteoarthritis, unspecified site; F43.10 Post-traumatic stress disorder, unspecified; X50.1XXA Overexertion from prolonged static or awkward postures, initial encounter; Z87.891 Personal history of nicotine dependence; Z79.899 Other long term (current) drug therapy; Z79.4 Long term (current) use of insulin; Z88.1 Allergy status to other antibiotic agents; Z88.0 Allergy status to penicillin; Z91.048 Other nonmedicinal substance allergy status; Z88.8 Allergy status to other drugs, medicaments and biological substances
CPT/HCPCS: 43762; 49465; 71045; 73660; 96372-59; 99283-25; A9270; J1885; Q9963

== ENCOUNTER 2025-02-03 17:32 | Emergency (ER) | payer OTHER ==
[~2025-02-03] VITALS: Ht 165.1 cm; Wt 99.8 kg
[~2025-02-03 17:32] MED LIST changes: +ASPERFLEX1 EACH TOP
[2025-02-03 17:48] VITALS: BP 114/75
[2025-02-03 18:13] LABS: BASOPHILS ABSOLUTE AUTO 0.03 K/mm3 (0.00-0.23); BASOPHILS PERCENT AUTO 1 % (0-2); EOSINOPHILS ABSOLUTE AUTO 0.24 K/mm3 (0.00-0.68); EOSINOPHILS PERCENT AUTO 4 % (0-6); Hematocrit 36.2 % (33.0-51.0); Hemoglobin 12.1 g/dL (11.5-16.0); IMMATURE GRAN ABSOLUTE AUTO 0.02 K/mm3 (0.00-0.10); IMMATURE GRAN PERCENT AUTO 0 % (0-1); LYMPHOCYTES ABSOLUTE AUTO 0.67 K/mm3 (0.84-5.20); LYMPHOCYTES PERCENT AUTO 10 % (21-46); MONOCYTES ABSOLUTE AUTO 0.54 K/mm3 (0.16-1.47); MONOCYTES PERCENT AUTO 8 % (4-13); Mean Corpuscular HGB Conc 33.4 g/dL (31.5-36.5); Mean Corpuscular Volume 94 fL (80-100); NEUTROPHILS ABSOLUTE AUTO 5.02 K/mm3 (1.96-9.15); NEUTROPHILS PERCENT AUTO 77 % (41-73); NRBC ABSOLUTE 0.00 K/mm3 (0.00-0.02); NRBC Auto 0.0 /100 WBC (0.0-0.2); Platelet Count 145 K/mm3 (150-400); RDW Coefficient Variation 11.9 % (11.7-14.2); RDW Standard Deviation 40.9 fL (35.1-46.3)
[2025-02-03 18:39] LABS: Magnesium, Blood 1.6 mg/dL (1.6-2.4)
[2025-02-03 18:49] LABS: Alanine Aminotransfer (ALT/SGP 34.0 U/L (12-78); Albumin, Blood 3.3 g/dL (3.4-5.0); Albumin/Globulin Ratio 0.7 (0.8-1.8); Anion Gap 8.0 mmol/L (3-11); Aspartate Aminotrans (AST/SGOT 36.0 U/L (12-37); Bilirubin, Total 0.7 mg/dL (0.1-1.0); Blood Urea Nitrogen 14.0 mg/dL (8-24); CO2, Blood 23.0 mmol/L (21-32); Calcium, Blood 9.1 mg/dL (8.5-10.1); Chloride, Blood 111.0 mmol/L (98-108); Creatinine, Blood 0.74 mg/dL (0.40-1.00); Globulin, Blood 4.5 g/dL (2.2-4.0); Glucose, Blood 86.0 mg/dL (70-99); Potassium, Blood 3.9 mmol/L (3.5-5.5); Sodium, Blood 138.0 mmol/L (136-145); Total Protein, Blood 7.8 g/dL (6.4-8.2)
[2025-02-03] MEDS ORDERED: CLON.5 PO (19:38)
== END 2025-02-03 19:58 | disposition home or self-care (01) ==
LOC: ER 17:32
PROVIDERS: Student in an Organized Health Care Education/Training Program
DX: F41.9 Anxiety disorder, unspecified (principal); R07.9 Chest pain, unspecified; E11.9 Type 2 diabetes mellitus without complications; Z93.1 Gastrostomy status; Z87.891 Personal history of nicotine dependence; Z88.6 Allergy status to analgesic agent; Z88.0 Allergy status to penicillin; Z88.8 Allergy status to other drugs, medicaments and biological substances; Z91.048 Other nonmedicinal substance allergy status; Z79.4 Long term (current) use of insulin; Z79.899 Other long term (current) drug therapy
CPT/HCPCS: 71046; 74018; 80053; 83735; 84484; 85025; 93005; 93010; 99284-25; A9270

== ENCOUNTER 2025-02-11 22:03 | Inpatient (IN) | payer OTHER ==
[~2025-02-11] VITALS: Ht 167.6 cm; Wt 97.9 kg
[~2025-02-11 22:03] MED LIST changes: -COMPAZINE IM; +COMPAZINE PO
[2025-02-11] MEDS ORDERED: Ondansetron HCl 2 MG / ML 2ML Vial IV ONE (23:00)
[2025-02-11 23:25] LABS: BASOPHILS ABSOLUTE AUTO 0.02 K/mm3 (0.00-0.23); BASOPHILS PERCENT AUTO 0 % (0-2); EOSINOPHILS ABSOLUTE AUTO 0.00 K/mm3 (0.00-0.68); EOSINOPHILS PERCENT AUTO 0 % (0-6); Hematocrit 35.8 % (33.0-51.0); Hemoglobin 11.9 g/dL (11.5-16.0); IMMATURE GRAN ABSOLUTE AUTO 0.11 K/mm3 (0.00-0.10); IMMATURE GRAN PERCENT AUTO 1 % (0-1); LYMPHOCYTES ABSOLUTE AUTO 0.43 K/mm3 (0.84-5.20); LYMPHOCYTES PERCENT AUTO 4 % (21-46); MONOCYTES ABSOLUTE AUTO 0.34 K/mm3 (0.16-1.47); MONOCYTES PERCENT AUTO 3 % (4-13); Mean Corpuscular HGB Conc 33.2 g/dL (31.5-36.5); Mean Corpuscular Volume 94 fL (80-100); NEUTROPHILS ABSOLUTE AUTO 10.62 K/mm3 (1.96-9.15); NEUTROPHILS PERCENT AUTO 92 % (41-73); NRBC ABSOLUTE 0.00 K/mm3 (0.00-0.02); NRBC Auto 0.0 /100 WBC (0.0-0.2); Platelet Count 135 K/mm3 (150-400); RDW Coefficient Variation 11.9 % (11.7-14.2); RDW Standard Deviation 41.3 fL (35.1-46.3); pH Blood Venous 7.45 (7.34-7.37)
[2025-02-11 23:43] LABS: Alanine Aminotransfer (ALT/SGP 26.0 U/L (12-78); Albumin, Blood 2.9 g/dL (3.4-5.0); Albumin/Globulin Ratio 0.6 (0.8-1.8); Anion Gap 9.0 mmol/L (3-11); Aspartate Aminotrans (AST/SGOT 23.0 U/L (12-37); Bilirubin, Total 0.9 mg/dL (0.1-1.0); Blood Urea Nitrogen 12.0 mg/dL (8-24); CO2, Blood 25.0 mmol/L (21-32); Calcium, Blood 8.6 mg/dL (8.5-10.1); Chloride, Blood 107.0 mmol/L (98-108); Creatinine, Blood 0.72 mg/dL (0.40-1.00); Globulin, Blood 5.1 g/dL (2.2-4.0); Glucose, Blood 152.0 mg/dL (70-99); Magnesium, Blood 1.9 mg/dL (1.6-2.4); Phosphorus, Blood 2.6 mg/dL (2.5-4.9); Potassium, Blood 3.3 mmol/L (3.5-5.5); Sodium, Blood 138.0 mmol/L (136-145); Total Protein, Blood 8.0 g/dL (6.4-8.2)
[2025-02-11] MEDS ORDERED: NS 1,000 ML IV SCH (23:55)
[2025-02-12 02:12] LABS: Source, Urine Clean Catch
[2025-02-12 02:16] LABS: Bilirubin, Urine Neg (Neg); Color, Urine Yellow (P-Yellow); Glucose Qualitative, Urine Neg (Neg); Ketones, Urine 3+ (Neg); Leukocyte Esterase, Urine 3+ (Neg); Protein, Urine 2+ (Neg); Specific Gravity, Urine 1.015 (1.003-1.022); Urobilinogen, Urine NORM (Normal)
[2025-02-12] MEDS ORDERED: Metoclopramide HCl 5MG / ML 2ML Vial IV ONE (02:25)
[2025-02-12 02:39] LABS: Red Blood Cells, Urine 25-50 /hpf (0-2)
[2025-02-12] MEDS ORDERED: LevoFLOXacin 750 MG/D5W 150ML 150 ML IV ONE (02:50)
[2025-02-12] MEDS ORDERED: DiphenhydrAMINE HCl 50 MG/ML 1ML Vial IV ONE (02:50)
[2025-02-12] MEDS ORDERED: Potassium Chl 20MEQ/Water100ML 100 ML IV ONE (03:15)
[2025-02-12] MEDS ORDERED: FentaNYL Citrate 50 MCG/ML 2 ML Injection IV PRN (03:30)
[2025-02-12] MEDS ORDERED: Metoclopramide HCl 5MG / ML 2ML Vial IV PRN (03:35)
[2025-02-12] MEDS ORDERED: NS 1,000 ML IV SCH (03:35)
[2025-02-12] MEDS ORDERED: Ondansetron HCl 2 MG / ML 2ML Vial IV PRN (03:35)
[2025-02-12] MEDS ORDERED: Pantoprazole Sodium 40 MG Injection IV SCH (03:55)
[2025-02-12 04:56] LABS: BASOPHILS ABSOLUTE AUTO 0.01 K/mm3 (0.00-0.23); BASOPHILS PERCENT AUTO 0 % (0-2); EOSINOPHILS ABSOLUTE AUTO 0.01 K/mm3 (0.00-0.68); EOSINOPHILS PERCENT AUTO 0 % (0-6); Hematocrit 30.7 % (33.0-51.0); Hemoglobin 10.3 g/dL (11.5-16.0); IMMATURE GRAN ABSOLUTE AUTO 0.08 K/mm3 (0.00-0.10); IMMATURE GRAN PERCENT AUTO 1 % (0-1); LYMPHOCYTES ABSOLUTE AUTO 0.80 K/mm3 (0.84-5.20); LYMPHOCYTES PERCENT AUTO 8 % (21-46); MONOCYTES ABSOLUTE AUTO 0.63 K/mm3 (0.16-1.47); MONOCYTES PERCENT AUTO 6 % (4-13); Mean Corpuscular HGB Conc 33.6 g/dL (31.5-36.5); Mean Corpuscular Volume 94 fL (80-100); NEUTROPHILS ABSOLUTE AUTO 8.31 K/mm3 (1.96-9.15); NEUTROPHILS PERCENT AUTO 85 % (41-73); NRBC ABSOLUTE 0.00 K/mm3 (0.00-0.02); NRBC Auto 0.0 /100 WBC (0.0-0.2); Platelet Count 113 K/mm3 (150-400); RDW Coefficient Variation 11.9 % (11.7-14.2); RDW Standard Deviation 40.5 fL (35.1-46.3)
[2025-02-12 05:18] LABS: Alanine Aminotransfer (ALT/SGP 19.0 U/L (12-78); Albumin, Blood 2.4 g/dL (3.4-5.0); Albumin/Globulin Ratio 0.5 (0.8-1.8); Anion Gap 7.0 mmol/L (3-11); Aspartate Aminotrans (AST/SGOT 15.0 U/L (12-37); Bilirubin, Total 0.7 mg/dL (0.1-1.0); Blood Urea Nitrogen 12.0 mg/dL (8-24); CO2, Blood 25.0 mmol/L (21-32); Calcium, Blood 8.0 mg/dL (8.5-10.1); Chloride, Blood 111.0 mmol/L (98-108); Creatinine, Blood 0.68 mg/dL (0.40-1.00); Globulin, Blood 4.5 g/dL (2.2-4.0); Glucose, Blood 121.0 mg/dL (70-99); Magnesium, Blood 1.6 mg/dL (1.6-2.4); Phosphorus, Blood 2.3 mg/dL (2.5-4.9); Potassium, Blood 3.2 mmol/L (3.5-5.5); Sodium, Blood 140.0 mmol/L (136-145); Total Protein, Blood 6.9 g/dL (6.4-8.2)
[2025-02-12 05:24] LABS: Influenza A, PCR NEGATIVE (NEGATIVE); Influenza B, PCR NEGATIVE (NEGATIVE); Resp Syncytial Virus, PCR NEGATIVE (NEGATIVE); SARS-Cov-2 (COVID-19) PCR, MMC NEGATIVE (NEGATIVE)
[2025-02-12] MEDS ORDERED: Potassium Phosphate Dibasic 30 MM in Dextrose 5% 500 ML IV STA (06:48)
[2025-02-12] MEDS ORDERED: Albumin (Human) 25gm/100ml 100 ML IV ONE (06:50)
[2025-02-12] MEDS ORDERED: Insulin Human Lispro 100 Units/ML 3ML Syringe SC SCH (07:30)
[2025-02-12] MEDS ORDERED: Haloperidol Lactate Inj. 5 MG/ML Injection IV ONE (08:30)
[2025-02-12] MEDS ORDERED: Enoxaparin 40 MG/0.4 ML SYR SC SCH (09:00)
[2025-02-12] MEDS ORDERED: OXYC5 PO (09:12)
[2025-02-12] MEDS ORDERED: ELIQUIS5 M3 PO (09:13)
[2025-02-12] MEDS ORDERED: ROPINIROLE HCL0.5 MG PO (09:13)
[2025-02-12] MEDS ORDERED: GLIMEPIRIDE1 M2 PO (09:13)
[2025-02-12] MEDS ORDERED: PANTOPRAZOLE SO40 M2 PO (09:13)
[2025-02-12 13:05] VITALS: BP 115/89
[2025-02-12] MEDS ORDERED: CefTRIAXone Sodium 1,000 MG in NS 100 ML IV SCH (13:35)
[2025-02-12] MEDS ORDERED: NS 250 ML IV PRN (14:55)
[2025-02-12 15:21] LABS: Campylobacter Sp Not Detected (NOT DETECT); E. Coli O157 Not Detected (NOT DETECT); Enteroaggregative E. coli-EAEC Not Detected (NOT DETECT); Enteropathogenic E. coli-EPEC Not Detected (NOT DETECT); Enterotoxigenic E. coli-ETEC Not Detected (NOT DETECT); Salmonella Sp Not Detected (NOT DETECT); Shiga Toxin-prod E. coli-STEC Not Detected (NOT DETECT); Shigella/Enteroin E. coli-EIEC Not Detected (NOT DETECT); Vibrio Sp Not Detected (NOT DETECT)
[2025-02-12] MEDS ORDERED: Haloperidol Lactate Inj. 5 MG/ML Injection IV PRN (15:55)
[2025-02-12 16:50] VITALS: BP 130/75
--- NOTE | 2025-02-12 18:28 | NUR ---
ADMISSION NOTE/SHIFT SUMMARY PATIENT A/OX4, ABLE TO MAKE NEEDS KNOWN. PLEASANT AND COOPERATIVE WITH CARE. PATIENT COMPLAINING OF NAUSEA UPON ADMISSION, MD NOTIFIED AND PRN HALDOL ORDERED PO, WHICH WAS INEFFECTIVE. PATIENT LATER COMPLAINING OF ANXIETY, MD NOTIFIED AND HALDOL ORDER CHANGED TO IV AND HOME DOSE OF KLONODINE ORDERED AND ADMINISTERED PER OCT. PATIENT WITH PEG TUBE AND STATES HAS NOT USED SINCE AUGUST OF THIS YEAR, HAS BEEN TOLERATING PO WELL EXCEPT FOR THIS LAST WEEK WITH FREQUENT BOUTS OF N/V/D. PATIENT WITH LOOSE STOOLS UPON ADMISSION, STOOL SAMPLE OBTAINED AND NEGATIVE. STILL NEEDING SPUTUM SAMPLE. IV ABX ORDERED FOR PNEUMONIA. SPEECH EVAL ORDERED. TELEMETRY IN PLACE, NO EVENTS NOTED, SINUS RHYTHYM 64 BPM. SPOUSE AND DAUGHTER AT BEDSIDE SINCE ADMISSION AND PLAN TO STAY OVERNIGHT. NO OTHER CONCERNS AT THIS TIME, WILL CONTINUE TO MONITOR.
[2025-02-12 19:54] VITALS: BP 109/73
[2025-02-12] MEDS ORDERED: Albuterol 2.5 MG/3 ML VIAL INH PRN (20:05)
[2025-02-12 20:20] LABS: Bilirubin, Urine Neg (Neg); Color, Urine Yellow (P-Yellow); Glucose Qualitative, Urine Neg (Neg); Ketones, Urine Neg (Neg); Leukocyte Esterase, Urine 1+ (Neg); Protein, Urine 1+ (Neg); Specific Gravity, Urine 1.010 (1.003-1.022); Urobilinogen, Urine NORM (Normal)
[2025-02-12 20:32] LABS: White Blood Cells, Urine 0-2 /hpf (0-5)
[2025-02-13 00:10] VITALS: BP 108/63
[2025-02-13] MEDS ORDERED: Prochlorperazine Edisylate 10 mg Vial IV ONE (01:40)
[2025-02-13 04:47] VITALS: BP 98/58
[2025-02-13 05:48] LABS: BASOPHILS ABSOLUTE AUTO 0.02 K/mm3 (0.00-0.23); BASOPHILS PERCENT AUTO 0 % (0-2); EOSINOPHILS ABSOLUTE AUTO 0.08 K/mm3 (0.00-0.68); EOSINOPHILS PERCENT AUTO 2 % (0-6); Hematocrit 31.4 % (33.0-51.0); Hemoglobin 10.2 g/dL (11.5-16.0); IMMATURE GRAN ABSOLUTE AUTO 0.03 K/mm3 (0.00-0.10); IMMATURE GRAN PERCENT AUTO 1 % (0-1); LYMPHOCYTES ABSOLUTE AUTO 0.87 K/mm3 (0.84-5.20); LYMPHOCYTES PERCENT AUTO 17 % (21-46); MONOCYTES ABSOLUTE AUTO 0.43 K/mm3 (0.16-1.47); MONOCYTES PERCENT AUTO 8 % (4-13); Mean Corpuscular HGB Conc 32.5 g/dL (31.5-36.5); Mean Corpuscular Volume 96 fL (80-100); NEUTROPHILS ABSOLUTE AUTO 3.84 K/mm3 (1.96-9.15); NEUTROPHILS PERCENT AUTO 73 % (41-73); NRBC ABSOLUTE 0.00 K/mm3 (0.00-0.02); NRBC Auto 0.0 /100 WBC (0.0-0.2); Platelet Count 122 K/mm3 (150-400); RDW Coefficient Variation 12.0 % (11.7-14.2); RDW Standard Deviation 42.0 fL (35.1-46.3)
[2025-02-13] MEDS ORDERED: LevoFLOXacin 750 MG/D5W 150ML 150 ML IV SCH (06:00)
[2025-02-13 06:23] LABS: Anion Gap 8.0 mmol/L (3-11); Blood Urea Nitrogen 9.0 mg/dL (8-24); CO2, Blood 23.0 mmol/L (21-32); Calcium, Blood 8.5 mg/dL (8.5-10.1); Chloride, Blood 114.0 mmol/L (98-108); Creatinine, Blood 0.65 mg/dL (0.40-1.00); Glucose, Blood 88.0 mg/dL (70-99); Potassium, Blood 3.5 mmol/L (3.5-5.5); Sodium, Blood 141.0 mmol/L (136-145)
--- NOTE | 2025-02-13 06:30 | NUR ---
SUMMARY ALERT, ORIENTED & AMBULATORY. VERBALISED NAUSEA RELIEVED ONLY BY HALDOL, ADM AND RELIEVED ONLY FOR SHORT PERIOD. EDUCATED ABT MAIN ANTI-SICKNESS MED BUT PT&DAUGHTER REF [facility] OF WORSENED N/V EXPERIENCE IN THE ER. DR VENTURA AGREE TO TRY 1 DOSE OF COMPAZINE AND HAS BEEN VERY EFFECTIVE ON HER ALSO CAUSING TO HAVE A GOOD SLEEP AFTER. PT AGREED TO SWITCH OVER TO COMPAZINE HER PRN FOR SICKNESS.
[2025-02-13 07:49] VITALS: BP 106/66
[2025-02-13] MEDS ORDERED: Prochlorperazine Edisylate 10 mg Vial IV PRN (08:15)
[2025-02-13 11:54] VITALS: BP 122/67
--- NOTE | 2025-02-13 15:19 | NUR ---
ATTEMPTED TO VISIT PT. SHE LEFT AMA
--- NOTE | 2025-02-13 16:12 | NUR ---
AMA SUMMARY: PATIENT LEFT AMA WITH SPOUSE AND DAUGHTER. PATIENT EDUCATED ON IMPORTANCE OF TAKING ANTIBIOTICS WITH DAUGHTER IN ROOM EARLIER THIS AM. DISCUSSED POSSIBLE OPTIONS WITH PATIENT AND PATIENT REFUSED STATING, "I HAVE PTSD FROM BEING PUT INTO HOSPITALS FROM AN EX OF MINE AND I CANT DO IT ANYMORE, I WANT OUT OF HERE". VERBALIZED UNDERSTANDING AND DOCTOR MADE AWARE. SPOUSE WAS NOTIFIED AT WORK BY PATIENT THAT THEY WOULD LIKE TO LEAVE. THIS CIVIL SERVICE CLERK DISCUSSED WITH SPOUSE OPTIONS SUCH SOCIAL WORK, AND OR HOSPICE CARE. SPOUSE AGREED TO SPEAK TO CHARGE ABOUT AVAILABLE OPTIONS IN THE COMMUNITY. GRACIELA BLANCO DISCUSSED WITH THIS PATIENT AND FAMILY OPTIONS AVAILABLE. PATIENT, AND SPOUSE AGREEDABLE TO LOOK INTO [facility] FOR CONTINUED CARE. DR. JALLOH WROTE A HARD SCRIPT FOR THIS PATIENT TO FIELD NURSE AND TAKE HOME FOR CONTINUED TREATMENT. PATIENT BELONGINGS PACK AND IV REMOVED BEFORE DISCHARGE.
== END 2025-02-13 14:30 | disposition left against medical advice (07) | DRG 178 ==
LOC: ER 22:03 → ERHOLD 22:04 → MEDS 02-12 12:30
PROVIDERS: Emergency Medicine; Internal Medicine; Physician Assistant; ADMIT Internal Medicine
DX: J69.0 Pneumonitis due to inhalation of food and vomit (principal); C15.9 Malignant neoplasm of esophagus, unspecified; C79.89 Secondary malignant neoplasm of other specified sites; M48.54XA Collapsed vertebra, not elsewhere classified, thoracic region, initial encounter for fracture; R11.2 Nausea with vomiting, unspecified; F12.988 Cannabis use, unspecified with other cannabis-induced disorder; E11.43 Type 2 diabetes mellitus with diabetic autonomic (poly)neuropathy; K31.84 Gastroparesis; F41.9 Anxiety disorder, unspecified; E87.6 Hypokalemia; F31.9 Bipolar disorder, unspecified; F43.10 Post-traumatic stress disorder, unspecified; M19.90 Unspecified osteoarthritis, unspecified site; E86.0 Dehydration; Z53.29 Procedure and treatment not carried out because of patient's decision for other reasons; Z88.6 Allergy status to analgesic agent; Z93.1 Gastrostomy status; Z88.0 Allergy status to penicillin; Z79.4 Long term (current) use of insulin; Z88.8 Allergy status to other drugs, medicaments and biological substances; Z87.891 Personal history of nicotine dependence
CPT/HCPCS: 36415; 71045; 74177; 80048; 80053; 81001; 82010; 82803; 82947; 83605; 83735; 83880; 84100; 85025; 87040; 87077; 87086; 87507; 87637; 92610; 94760; 96365-59; 96366; 96367; 96375; 99285-25; A9270; G0378; J0456; J0696; J0780; J1200; J1630; J1650; J1956; J2405; J2470; J2765; J3480; J7030; J7050; J7060; P9047; Q9967

== ENCOUNTER 2025-03-01 01:19 | Emergency (ER) | payer OTHER ==
[~2025-03-01] VITALS: Ht 167.6 cm; Wt 99.8 kg
[~2025-03-01 01:19] MED LIST changes: +ELIQUIS5 M3 PO; +GLIMEPIRIDE1 M2 PO; +OXYC5 PO; +PANTOPRAZOLE SO40 M2 PO; +ROPINIROLE HCL0.5 MG PO
[2025-03-01 01:35] VITALS: BP 114/76
[2025-03-01] MEDS ORDERED: Trimethoprim/Sulfamethoxazole DS Tab PO ONE (02:05)
[2025-03-01] MEDS ORDERED: Mupirocin22 GM TOP (02:05)
[2025-03-01] MEDS ORDERED: Bactrim Ds Tab1 EACH PO (02:05)
== END 2025-03-01 02:21 | disposition home or self-care (01) ==
LOC: ER 01:19
DX: L03.031 Cellulitis of right toe (principal); Z87.891 Personal history of nicotine dependence; Z88.0 Allergy status to penicillin; Z91.048 Other nonmedicinal substance allergy status; Z88.1 Allergy status to other antibiotic agents; Z88.8 Allergy status to other drugs, medicaments and biological substances; Z79.4 Long term (current) use of insulin
CPT/HCPCS: 99283; A9270

== ENCOUNTER 2025-03-10 15:27 | Emergency (ER) | payer OTHER ==
[~2025-03-10] VITALS: Ht 167.6 cm; Wt 99.3 kg
[~2025-03-10 15:27] MED LIST changes: +Bactrim Ds Tab1 EACH PO; +Mupirocin22 GM TOP
[2025-03-10 15:33] VITALS: BP 120/78
[2025-03-10 16:09] LABS: BASOPHILS ABSOLUTE AUTO 0.02 K/mm3 (0.00-0.23); BASOPHILS PERCENT AUTO 1 % (0-2); EOSINOPHILS ABSOLUTE AUTO 0.19 K/mm3 (0.00-0.68); EOSINOPHILS PERCENT AUTO 13 % (0-6); Hematocrit 33.4 % (33.0-51.0); Hemoglobin 11.0 g/dL (11.5-16.0); IMMATURE GRAN ABSOLUTE AUTO 0.01 K/mm3 (0.00-0.10); IMMATURE GRAN PERCENT AUTO 1 % (0-1); LYMPHOCYTES ABSOLUTE AUTO 0.59 K/mm3 (0.84-5.20); LYMPHOCYTES PERCENT AUTO 40 % (21-46); MONOCYTES ABSOLUTE AUTO 0.35 K/mm3 (0.16-1.47); MONOCYTES PERCENT AUTO 24 % (4-13); Mean Corpuscular HGB Conc 32.9 g/dL (31.5-36.5); Mean Corpuscular Volume 94 fL (80-100); NEUTROPHILS ABSOLUTE AUTO 0.30 K/mm3 (1.96-9.15); NEUTROPHILS PERCENT AUTO 21 % (41-73); NRBC ABSOLUTE 0.00 K/mm3 (0.00-0.02); NRBC Auto 0.0 /100 WBC (0.0-0.2); Platelet Count 127 K/mm3 (150-400); RDW Coefficient Variation 12.9 % (11.7-14.2); RDW Standard Deviation 42.5 fL (35.1-46.3)
[2025-03-10 16:38] LABS: Alanine Aminotransfer (ALT/SGP 31.0 U/L (12-78); Albumin, Blood 3.1 g/dL (3.4-5.0); Albumin/Globulin Ratio 0.7 (0.8-1.8); Anion Gap 8.0 mmol/L (3-11); Aspartate Aminotrans (AST/SGOT 31.0 U/L (12-37); Bilirubin, Total 0.5 mg/dL (0.1-1.0); Blood Urea Nitrogen 10.0 mg/dL (8-24); CO2, Blood 22.0 mmol/L (21-32); Calcium, Blood 9.2 mg/dL (8.5-10.1); Chloride, Blood 111.0 mmol/L (98-108); Creatinine, Blood 1.01 mg/dL (0.40-1.00); Globulin, Blood 4.3 g/dL (2.2-4.0); Glucose, Blood 208.0 mg/dL (70-99); Potassium, Blood 3.5 mmol/L (3.5-5.5); Sodium, Blood 137.0 mmol/L (136-145); Total Protein, Blood 7.4 g/dL (6.4-8.2)
[2025-03-15] MEDS ORDERED: LEVOFLOXACIN250 M9 PO (00:47)
== END 2025-03-10 18:38 | disposition left against medical advice (07) ==
LOC: ER 15:27
PROVIDERS: Student in an Organized Health Care Education/Training Program
DX: R06.02 Shortness of breath (principal); J45.909 Unspecified asthma, uncomplicated; F41.9 Anxiety disorder, unspecified; Z53.21 Procedure and treatment not carried out due to patient leaving prior to being seen by health care provider
CPT/HCPCS: 80053; 84484; 85025; 85379; 93005; 93010; 99282-25

== ENCOUNTER 2025-03-22 02:50 | Emergency (ER) | payer OTHER ==
[~2025-03-22] VITALS: Ht 167.6 cm; Wt 95.7 kg
[~2025-03-22 02:50] MED LIST changes: +HYDMOR2 PO; +LEVOFLOXACIN250 M9 PO; +MORP30ER PO
[2025-03-22] MEDS ORDERED: DIAZ2 PO (05:06)
[2025-03-22 05:30] VITALS: BP 112/85
[2025-03-23] MEDS ORDERED: K-TAB ER20 ME1 PO (19:16)
[2025-03-23] MEDS ORDERED: LORA.5 PO (19:24)
== END 2025-03-22 05:45 | disposition home or self-care (01) ==
LOC: ER 02:50
DX: F41.0 Panic disorder [episodic paroxysmal anxiety] (principal); F43.0 Acute stress reaction; F43.10 Post-traumatic stress disorder, unspecified; E11.9 Type 2 diabetes mellitus without complications; M19.90 Unspecified osteoarthritis, unspecified site; Z87.891 Personal history of nicotine dependence; Z79.899 Other long term (current) drug therapy; Z79.4 Long term (current) use of insulin; Z88.0 Allergy status to penicillin; Z88.1 Allergy status to other antibiotic agents; Z91.048 Other nonmedicinal substance allergy status; Z88.8 Allergy status to other drugs, medicaments and biological substances
CPT/HCPCS: 93005; 93010; 99283-25; A9270

== ENCOUNTER 2025-03-23 13:13 | Emergency (ER) | payer OTHER ==
[~2025-03-23] VITALS: Ht 167.6 cm; Wt 95.2 kg
[~2025-03-23 13:13] MED LIST changes: +DIAZ2 PO
[2025-03-23 13:25] VITALS: BP 126/78
[2025-03-23 13:55] LABS: BASOPHILS ABSOLUTE AUTO 0.02 K/mm3 (0.00-0.23); BASOPHILS PERCENT AUTO 1 % (0-2); EOSINOPHILS ABSOLUTE AUTO 0.08 K/mm3 (0.00-0.68); EOSINOPHILS PERCENT AUTO 2 % (0-6); Hematocrit 31.2 % (33.0-51.0); Hemoglobin 10.6 g/dL (11.5-16.0); IMMATURE GRAN ABSOLUTE AUTO 0.01 K/mm3 (0.00-0.10); IMMATURE GRAN PERCENT AUTO 0 % (0-1); LYMPHOCYTES ABSOLUTE AUTO 0.56 K/mm3 (0.84-5.20); LYMPHOCYTES PERCENT AUTO 17 % (21-46); MONOCYTES ABSOLUTE AUTO 0.19 K/mm3 (0.16-1.47); MONOCYTES PERCENT AUTO 6 % (4-13); Mean Corpuscular HGB Conc 34.0 g/dL (31.5-36.5); Mean Corpuscular Volume 92 fL (80-100); NEUTROPHILS ABSOLUTE AUTO 2.51 K/mm3 (1.96-9.15); NEUTROPHILS PERCENT AUTO 75 % (41-73); NRBC ABSOLUTE 0.00 K/mm3 (0.00-0.02); NRBC Auto 0.0 /100 WBC (0.0-0.2); Platelet Count 82 K/mm3 (150-400); RDW Coefficient Variation 13.5 % (11.7-14.2); RDW Standard Deviation 44.6 fL (35.1-46.3)
[2025-03-23 14:21] LABS: Alanine Aminotransfer (ALT/SGP 59.0 U/L (12-78); Albumin, Blood 3.0 g/dL (3.4-5.0); Albumin/Globulin Ratio 0.8 (0.8-1.8); Anion Gap 3.0 mmol/L (3-11); Aspartate Aminotrans (AST/SGOT 60.0 U/L (12-37); Bilirubin, Total 0.9 mg/dL (0.1-1.0); Blood Urea Nitrogen 8.0 mg/dL (8-24); CO2, Blood 26.0 mmol/L (21-32); Calcium, Blood 9.2 mg/dL (8.5-10.1); Chloride, Blood 112.0 mmol/L (98-108); Creatinine, Blood 0.78 mg/dL (0.40-1.00); Globulin, Blood 4.0 g/dL (2.2-4.0); Glucose, Blood 107.0 mg/dL (70-99); Magnesium, Blood 1.8 mg/dL (1.6-2.4); Potassium, Blood 3.0 mmol/L (3.5-5.5); Sodium, Blood 138.0 mmol/L (136-145); Total Protein, Blood 7.0 g/dL (6.4-8.2)
[2025-03-23] MEDS ORDERED: K-TAB ER20 ME1 PO (19:16)
[2025-03-23] MEDS ORDERED: LORA.5 PO (19:24)
== END 2025-03-23 19:48 | disposition home or self-care (01) ==
LOC: ER 13:13
PROVIDERS: Student in an Organized Health Care Education/Training Program
DX: F41.0 Panic disorder [episodic paroxysmal anxiety] (principal); E87.6 Hypokalemia; R06.02 Shortness of breath; E11.9 Type 2 diabetes mellitus without complications; C15.9 Malignant neoplasm of esophagus, unspecified; Z87.891 Personal history of nicotine dependence; Z93.1 Gastrostomy status; Z86.711 Personal history of pulmonary embolism; Z88.0 Allergy status to penicillin; Z88.6 Allergy status to analgesic agent; Z88.8 Allergy status to other drugs, medicaments and biological substances; Z91.048 Other nonmedicinal substance allergy status; Z79.01 Long term (current) use of anticoagulants; Z79.4 Long term (current) use of insulin; Z79.84 Long term (current) use of oral hypoglycemic drugs; Z79.899 Other long term (current) drug therapy; Z65.8 Other specified problems related to psychosocial circumstances
CPT/HCPCS: 80053; 83735; 84484; 85025; 93005; 93010; 99283-25; A9270

== ENCOUNTER 2025-03-26 17:49 | Emergency (ER) | payer OTHER ==
[~2025-03-26] VITALS: Ht 167.6 cm; Wt 95.7 kg
[~2025-03-26 17:49] MED LIST changes: +K-TAB ER20 ME1 PO; +LORA.5 PO
[2025-03-26 17:57] VITALS: BP 117/80
[2025-03-26] MEDS ORDERED: Metoclopramide HCl 5MG / ML 2ML Vial IV ONE (18:20)
[2025-03-26] MEDS ORDERED: Ondansetron HCl 2 MG / ML 2ML Vial IV ONE (18:25)
[2025-03-26 18:52] LABS: BASOPHILS ABSOLUTE AUTO 0.02 K/mm3 (0.00-0.23); BASOPHILS PERCENT AUTO 1 % (0-2); EOSINOPHILS ABSOLUTE AUTO 0.06 K/mm3 (0.00-0.68); EOSINOPHILS PERCENT AUTO 2 % (0-6); Hematocrit 28.7 % (33.0-51.0); Hemoglobin 9.5 g/dL (11.5-16.0); IMMATURE GRAN ABSOLUTE AUTO 0.01 K/mm3 (0.00-0.10); IMMATURE GRAN PERCENT AUTO 0 % (0-1); LYMPHOCYTES ABSOLUTE AUTO 0.76 K/mm3 (0.84-5.20); LYMPHOCYTES PERCENT AUTO 24 % (21-46); MONOCYTES ABSOLUTE AUTO 0.27 K/mm3 (0.16-1.47); MONOCYTES PERCENT AUTO 8 % (4-13); Mean Corpuscular HGB Conc 33.1 g/dL (31.5-36.5); Mean Corpuscular Volume 94 fL (80-100); NEUTROPHILS ABSOLUTE AUTO 2.12 K/mm3 (1.96-9.15); NEUTROPHILS PERCENT AUTO 65 % (41-73); NRBC ABSOLUTE 0.00 K/mm3 (0.00-0.02); NRBC Auto 0.0 /100 WBC (0.0-0.2); Platelet Count 96 K/mm3 (150-400); RDW Coefficient Variation 13.4 % (11.7-14.2); RDW Standard Deviation 45.1 fL (35.1-46.3)
[2025-03-26] MEDS ORDERED: Ondansetron HCl 2 MG / ML 2ML Vial ONE (18:55)
[2025-03-26 19:16] LABS: Alanine Aminotransfer (ALT/SGP 51.0 U/L (12-78); Albumin, Blood 2.9 g/dL (3.4-5.0); Albumin/Globulin Ratio 0.7 (0.8-1.8); Anion Gap 6.0 mmol/L (3-11); Aspartate Aminotrans (AST/SGOT 50.0 U/L (12-37); Bilirubin, Total 0.8 mg/dL (0.1-1.0); Blood Urea Nitrogen 6.0 mg/dL (8-24); CO2, Blood 25.0 mmol/L (21-32); Calcium, Blood 9.0 mg/dL (8.5-10.1); Chloride, Blood 112.0 mmol/L (98-108); Creatinine, Blood 0.78 mg/dL (0.40-1.00); Globulin, Blood 4.0 g/dL (2.2-4.0); Glucose, Blood 144.0 mg/dL (70-99); Potassium, Blood 3.3 mmol/L (3.5-5.5); Sodium, Blood 140.0 mmol/L (136-145); Total Protein, Blood 6.9 g/dL (6.4-8.2)
[2025-03-26] MEDS ORDERED: Midazolam HCl 1MG / ML 2ML Vial IV ONE (19:45)
[2025-03-26] MEDS ORDERED: NS 1,000 ML IV SCH (23:30)
[2025-03-27 00:30] LABS: Source, Urine Clean Catch
[2025-03-27 00:34] LABS: Bilirubin, Urine Neg (Neg); Glucose Qualitative, Urine Neg (Neg); Ketones, Urine Neg (Neg); Leukocyte Esterase, Urine 3+ (Neg); Protein, Urine 2+ (Neg); Specific Gravity, Urine 1.015 (1.003-1.022); Urobilinogen, Urine NORM (Normal)
[2025-03-27 00:45] LABS: Color, Urine Yellow (P-Yellow)
[2025-03-27 00:47] LABS: Red Blood Cells, Urine 0-2 /hpf (0-2)
[2025-03-27] MEDS ORDERED: CEPH500 PO (01:31)
[2025-03-28] MEDS ORDERED: OLAN10 PO (21:20)
== END 2025-03-27 02:53 | disposition home or self-care (01) ==
LOC: ER 17:49
PROVIDERS: Physician Assistant
DX: N39.0 Urinary tract infection, site not specified (principal); R19.7 Diarrhea, unspecified; Z88.0 Allergy status to penicillin; Z79.899 Other long term (current) drug therapy; Z79.01 Long term (current) use of anticoagulants; Z79.4 Long term (current) use of insulin; F43.10 Post-traumatic stress disorder, unspecified; M19.90 Unspecified osteoarthritis, unspecified site; E11.9 Type 2 diabetes mellitus without complications; Z87.891 Personal history of nicotine dependence
CPT/HCPCS: 74177; 80053; 81001; 83690; 85025; 87077; 87086; 87186; 93005; 93010; 96361; 96374; 96375; 99284-25; A9270; J1642; J2250; J2405; J2765; J7030; Q9967

== ENCOUNTER 2025-03-28 15:35 | Emergency (ER) | payer OTHER ==
[~2025-03-28] VITALS: Ht 167.6 cm; Wt 95.7 kg
[2025-03-28] MEDS ORDERED: CeFAZolin Sodium 1,000 MG in NS 50 ML IV ONE (15:50)
[2025-03-28] MEDS ORDERED: Ketorolac Tromethamine 15mg Vial IV ONE (15:50)
[2025-03-28] MEDS ORDERED: Ondansetron HCl 2 MG / ML 2ML Vial IV ONE (15:50)
[2025-03-28 18:21] LABS: BASOPHILS ABSOLUTE AUTO 0.02 K/mm3 (0.00-0.23); BASOPHILS PERCENT AUTO 1 % (0-2); EOSINOPHILS ABSOLUTE AUTO 0.05 K/mm3 (0.00-0.68); EOSINOPHILS PERCENT AUTO 2 % (0-6); Hematocrit 27.5 % (33.0-51.0); Hemoglobin 9.1 g/dL (11.5-16.0); IMMATURE GRAN ABSOLUTE AUTO 0.02 K/mm3 (0.00-0.10); IMMATURE GRAN PERCENT AUTO 1 % (0-1); LYMPHOCYTES ABSOLUTE AUTO 0.59 K/mm3 (0.84-5.20); LYMPHOCYTES PERCENT AUTO 24 % (21-46); MONOCYTES ABSOLUTE AUTO 0.30 K/mm3 (0.16-1.47); MONOCYTES PERCENT AUTO 12 % (4-13); Mean Corpuscular HGB Conc 33.1 g/dL (31.5-36.5); Mean Corpuscular Volume 94 fL (80-100); NEUTROPHILS ABSOLUTE AUTO 1.46 K/mm3 (1.96-9.15); NEUTROPHILS PERCENT AUTO 60 % (41-73); NRBC ABSOLUTE 0.00 K/mm3 (0.00-0.02); NRBC Auto 0.0 /100 WBC (0.0-0.2); Platelet Count 101 K/mm3 (150-400); RDW Coefficient Variation 13.5 % (11.7-14.2); RDW Standard Deviation 44.7 fL (35.1-46.3)
[2025-03-28] MEDS ORDERED: OLAN10 PO (21:20)
[2025-03-28 21:42] VITALS: BP 105/75
== END 2025-03-28 21:42 | disposition home or self-care (01) ==
LOC: ER 15:35
PROVIDERS: Student in an Organized Health Care Education/Training Program
DX: R11.2 Nausea with vomiting, unspecified (principal); D61.818 Other pancytopenia; E11.9 Type 2 diabetes mellitus without complications; F31.9 Bipolar disorder, unspecified; Z88.0 Allergy status to penicillin; Z88.8 Allergy status to other drugs, medicaments and biological substances; Z91.048 Other nonmedicinal substance allergy status; Z79.4 Long term (current) use of insulin; Z79.84 Long term (current) use of oral hypoglycemic drugs; Z79.899 Other long term (current) drug therapy; Z87.891 Personal history of nicotine dependence
CPT/HCPCS: 85025; 96365; 96375; 99284-25; A9270; J0690; J1885; J2405

== ENCOUNTER 2025-03-31 15:06 | Emergency (ER) | payer OTHER ==
[~2025-03-31] VITALS: Ht 167.6 cm; Wt 95.7 kg
[~2025-03-31 15:06] MED LIST changes: +OLAN10 PO
[2025-03-31] MEDS ORDERED: Ondansetron HCl 2 MG / ML 2ML Vial IV ONE (15:50)
[2025-03-31 16:22] LABS: Hematocrit 30.5 % (33.0-51.0); Hemoglobin 10.1 g/dL (11.5-16.0); Mean Corpuscular HGB Conc 33.1 g/dL (31.5-36.5); Mean Corpuscular Volume 96 fL (80-100); NRBC ABSOLUTE 0.00 K/mm3 (0.00-0.02); NRBC Auto 0.0 /100 WBC (0.0-0.2); Platelet Count 168 K/mm3 (150-400); RDW Coefficient Variation 14.9 % (11.7-14.2); RDW Standard Deviation 48.0 fL (35.1-46.3)
[2025-03-31 17:05] LABS: Alanine Aminotransfer (ALT/SGP 32.0 U/L (12-78); Albumin, Blood 2.7 g/dL (3.4-5.0); Albumin/Globulin Ratio 0.8 (0.8-1.8); Anion Gap 9.0 mmol/L (3-11); Aspartate Aminotrans (AST/SGOT 33.0 U/L (12-37); Bilirubin, Total 0.9 mg/dL (0.1-1.0); Blood Urea Nitrogen 7.0 mg/dL (8-24); CO2, Blood 21.0 mmol/L (21-32); Calcium, Blood 8.2 mg/dL (8.5-10.1); Chloride, Blood 116.0 mmol/L (98-108); Creatinine, Blood 0.52 mg/dL (0.40-1.00); Globulin, Blood 3.6 g/dL (2.2-4.0); Glucose, Blood 104.0 mg/dL (70-99); Potassium, Blood 2.6 mmol/L (3.5-5.5); Sodium, Blood 143.0 mmol/L (136-145); Total Protein, Blood 6.3 g/dL (6.4-8.2)
[2025-03-31 17:51] LABS: BAND PERCENT MAN 4 % (0-8); BASOPHILS ABSOLUTE MAN 0.00 K/mm3 (0.00-0.23); BASOPHILS PERCENT MAN 0 % (0-2); EOSINOPHILS ABSOLUTE MAN 0.05 K/mm3 (0.00-0.68); EOSINOPHILS PERCENT MAN 4 % (0-6); LYMPHOCYTES ABSOLUTE MAN 0.62 K/mm3 (0.84-5.20); LYMPHOCYTES PERCENT MAN 44 % (21-46); MONOCYTES ABSOLUTE MAN 0.11 K/mm3 (0.16-1.47); MONOCYTES PERCENT MAN 8 % (4-13); NEUTROPHILS ABSOLUTE MAN 0.62 K/mm3 (1.96-9.15); SEG NEUTROPHILS PERCENT MAN 40 % (41-73)
[2025-03-31] MEDS ORDERED: NS 1,000 ML IV SCH (20:15)
[2025-03-31] MEDS ORDERED: Prochlorperazine Edisylate 10 mg Vial IV ONE (20:20)
[2025-03-31] MEDS ORDERED: Ketorolac Tromethamine 30mg Vial IV ONE (20:20)
[2025-03-31] MEDS ORDERED: Ondansetron Odt8 MG MM (22:08)
[2025-03-31] MEDS ORDERED: DICY20 PO (22:08)
[2025-03-31 22:23] VITALS: BP 119/85
== END 2025-03-31 22:27 | disposition home or self-care (01) ==
LOC: ER 15:06
PROVIDERS: Student in an Organized Health Care Education/Training Program
DX: E87.6 Hypokalemia (principal); R11.2 Nausea with vomiting, unspecified; R19.7 Diarrhea, unspecified; E11.9 Type 2 diabetes mellitus without complications; Z87.891 Personal history of nicotine dependence; Z88.0 Allergy status to penicillin; Z88.6 Allergy status to analgesic agent; Z88.8 Allergy status to other drugs, medicaments and biological substances; Z91.048 Other nonmedicinal substance allergy status; Z79.4 Long term (current) use of insulin; Z79.84 Long term (current) use of oral hypoglycemic drugs; Z79.899 Other long term (current) drug therapy
CPT/HCPCS: 80053; 83605; 83690; 83735; 85025; 93005; 93010; 96372-59; 96374; 96375; 99284-25; A9270; J0500; J0780; J1885; J2405; J7030

== ENCOUNTER 2025-04-14 15:51 | Emergency (ER) | payer OTHER ==
[~2025-04-14] VITALS: Ht 167.6 cm; Wt 96.2 kg
[~2025-04-14 15:51] MED LIST changes: +DICY20 PO
[2025-04-14 16:46] VITALS: BP 145/76
[2025-04-14] MEDS ORDERED: Ondansetron HCl 2 MG / ML 2ML Vial IV ONE (16:50)
[2025-04-14] MEDS ORDERED: NS 1,000 ML IV SCH (16:50)
[2025-04-14 18:05] LABS: BASOPHILS ABSOLUTE AUTO 0.02 K/mm3 (0.00-0.23); BASOPHILS PERCENT AUTO 0 % (0-2); EOSINOPHILS ABSOLUTE AUTO 0.02 K/mm3 (0.00-0.68); EOSINOPHILS PERCENT AUTO 0 % (0-6); Hematocrit 32.6 % (33.0-51.0); Hemoglobin 10.9 g/dL (11.5-16.0); IMMATURE GRAN ABSOLUTE AUTO 0.03 K/mm3 (0.00-0.10); IMMATURE GRAN PERCENT AUTO 0 % (0-1); LYMPHOCYTES ABSOLUTE AUTO 0.39 K/mm3 (0.84-5.20); LYMPHOCYTES PERCENT AUTO 5 % (21-46); MONOCYTES ABSOLUTE AUTO 0.24 K/mm3 (0.16-1.47); MONOCYTES PERCENT AUTO 3 % (4-13); Mean Corpuscular HGB Conc 33.4 g/dL (31.5-36.5); Mean Corpuscular Volume 98 fL (80-100); NEUTROPHILS ABSOLUTE AUTO 6.66 K/mm3 (1.96-9.15); NEUTROPHILS PERCENT AUTO 90 % (41-73); NRBC ABSOLUTE 0.00 K/mm3 (0.00-0.02); NRBC Auto 0.0 /100 WBC (0.0-0.2); Platelet Count 146 K/mm3 (150-400); RDW Coefficient Variation 17.8 % (11.7-14.2); RDW Standard Deviation 62.2 fL (35.1-46.3)
[2025-04-14 18:33] LABS: Alanine Aminotransfer (ALT/SGP 75.0 U/L (12-78); Albumin, Blood 2.6 g/dL (3.4-5.0); Albumin/Globulin Ratio 0.6 (0.8-1.8); Anion Gap 8.0 mmol/L (3-11); Aspartate Aminotrans (AST/SGOT 95.0 U/L (12-37); Bilirubin, Total 1.1 mg/dL (0.1-1.0); Blood Urea Nitrogen 16.0 mg/dL (8-24); CO2, Blood 26.0 mmol/L (21-32); Calcium, Blood 9.3 mg/dL (8.5-10.1); Chloride, Blood 112.0 mmol/L (98-108); Creatinine, Blood 0.54 mg/dL (0.40-1.00); Globulin, Blood 4.3 g/dL (2.2-4.0); Glucose, Blood 186.0 mg/dL (70-99); Potassium, Blood 3.9 mmol/L (3.5-5.5); Sodium, Blood 142.0 mmol/L (136-145); Total Protein, Blood 6.9 g/dL (6.4-8.2)
== END 2025-04-14 20:42 | disposition home or self-care (01) ==
LOC: ER 15:51
PROVIDERS: Student in an Organized Health Care Education/Training Program
DX: K92.0 Hematemesis (principal); C15.9 Malignant neoplasm of esophagus, unspecified; Z87.891 Personal history of nicotine dependence; Z88.0 Allergy status to penicillin; Z88.6 Allergy status to analgesic agent; Z88.8 Allergy status to other drugs, medicaments and biological substances; Z91.048 Other nonmedicinal substance allergy status; Z79.4 Long term (current) use of insulin; Z79.84 Long term (current) use of oral hypoglycemic drugs; Z79.899 Other long term (current) drug therapy
CPT/HCPCS: 36415; 71046; 80053; 83690; 85025; 86850; 86900; 86901; 96374; 96375; 99284-25; J1642; J2405; J7030

== ENCOUNTER 2025-04-16 23:28 | Inpatient (IN) | payer OTHER ==
[~2025-04-16] VITALS: Ht 167.6 cm; Wt 96.2 kg
[2025-04-17 00:17] LABS: BASOPHILS ABSOLUTE AUTO 0.02 K/mm3 (0.00-0.23); BASOPHILS PERCENT AUTO 1 % (0-2); EOSINOPHILS ABSOLUTE AUTO 0.04 K/mm3 (0.00-0.68); EOSINOPHILS PERCENT AUTO 1 % (0-6); Hematocrit 32.3 % (33.0-51.0); Hemoglobin 10.7 g/dL (11.5-16.0); IMMATURE GRAN ABSOLUTE AUTO 0.01 K/mm3 (0.00-0.10); IMMATURE GRAN PERCENT AUTO 0 % (0-1); LYMPHOCYTES ABSOLUTE AUTO 0.66 K/mm3 (0.84-5.20); LYMPHOCYTES PERCENT AUTO 17 % (21-46); MONOCYTES ABSOLUTE AUTO 0.11 K/mm3 (0.16-1.47); MONOCYTES PERCENT AUTO 3 % (4-13); Mean Corpuscular HGB Conc 33.1 g/dL (31.5-36.5); Mean Corpuscular Volume 97 fL (80-100); NEUTROPHILS ABSOLUTE AUTO 3.16 K/mm3 (1.96-9.15); NEUTROPHILS PERCENT AUTO 79 % (41-73); NRBC ABSOLUTE 0.00 K/mm3 (0.00-0.02); NRBC Auto 0.0 /100 WBC (0.0-0.2); Platelet Count 145 K/mm3 (150-400); RDW Coefficient Variation 17.2 % (11.7-14.2); RDW Standard Deviation 60.6 fL (35.1-46.3)
[2025-04-17 00:37] LABS: Alanine Aminotransfer (ALT/SGP 81.0 U/L (12-78); Albumin, Blood 2.7 g/dL (3.4-5.0); Albumin/Globulin Ratio 0.6 (0.8-1.8); Anion Gap 9.0 mmol/L (3-11); Aspartate Aminotrans (AST/SGOT 92.0 U/L (12-37); Bilirubin, Total 1.4 mg/dL (0.1-1.0); Blood Urea Nitrogen 13.0 mg/dL (8-24); CO2, Blood 26.0 mmol/L (21-32); Calcium, Blood 8.7 mg/dL (8.5-10.1); Chloride, Blood 107.0 mmol/L (98-108); Creatinine, Blood 0.66 mg/dL (0.40-1.00); Globulin, Blood 4.3 g/dL (2.2-4.0); Glucose, Blood 126.0 mg/dL (70-99); Magnesium, Blood 1.7 mg/dL (1.6-2.4); Phosphorus, Blood 3.0 mg/dL (2.5-4.9); Potassium, Blood 2.9 mmol/L (3.5-5.5); Sodium, Blood 139.0 mmol/L (136-145); Total Protein, Blood 7.0 g/dL (6.4-8.2)
[2025-04-17] MEDS ORDERED: Metoclopramide HCl 5MG / ML 2ML Vial IV ONE (00:40)
[2025-04-17] MEDS ORDERED: Haloperidol Lactate Inj. 5 MG/ML Injection IV ONE ×2 (01:45→05:15)
[2025-04-17] MEDS ORDERED: Potassium Chl 20MEQ/Water100ML 100 ML IV ONE (01:45)
[2025-04-17] MEDS ORDERED: METO10 PO (03:54)
[2025-04-17] MEDS ORDERED: PROM12.5S PR (03:54)
[2025-04-17] MEDS ORDERED: Ondansetron HCl 2 MG / ML 2ML Vial IV ONE (04:15)
[2025-04-17] MEDS ORDERED: POTA10T PO (04:16)
[2025-04-17] MEDS ORDERED: NS 1,000 ML IV ONE (05:35)
[2025-04-17] MEDS ORDERED: Metoclopramide HCl 5MG / ML 2ML Vial IV PRN (05:35)
[2025-04-17] MEDS ORDERED: Ondansetron HCl 2 MG / ML 2ML Vial IV PRN (05:35)
[2025-04-17] MEDS ORDERED: FentaNYL Citrate 50 MCG/ML 2 ML Injection IV PRN (05:35)
[2025-04-17] MEDS ORDERED: Pantoprazole Sodium 40 MG Injection IV SCH (06:27)
[2025-04-17 06:42] VITALS: BP 130/76
[2025-04-17] MEDS ORDERED: LORazepam 2 MG/ML 1ML Injection IV ONE ×2 (06:55→19:20)
[2025-04-17 07:11] VITALS: BP 121/81
[2025-04-17] MEDS ORDERED: Insulin Human Lispro 100 Units/ML 3ML Syringe SC SCH (07:30)
[2025-04-17 10:22] LABS: Campylobacter Sp Not Detected (NOT DETECT); E. Coli O157 Not Detected (NOT DETECT); Enteroaggregative E. coli-EAEC Not Detected (NOT DETECT); Enteropathogenic E. coli-EPEC Not Detected (NOT DETECT); Enterotoxigenic E. coli-ETEC Not Detected (NOT DETECT); Salmonella Sp Not Detected (NOT DETECT); Shiga Toxin-prod E. coli-STEC Not Detected (NOT DETECT); Shigella/Enteroin E. coli-EIEC Not Detected (NOT DETECT); Vibrio Sp Not Detected (NOT DETECT)
[2025-04-17 13:46] LABS: Magnesium, Blood 1.5 mg/dL (1.6-2.4); Potassium, Blood 2.9 mmol/L (3.5-5.5)
[2025-04-17] MEDS ORDERED: Mag Sulfate 1 GM/D5% 100ML 100 ML IV ONE (14:00)
[2025-04-17] MEDS ORDERED: Potassium Chl 20MEQ/Water100ML 100 ML IV SCH (14:10)
[2025-04-17 16:09] VITALS: BP 116/65
--- NOTE | 2025-04-17 19:14 | NUR ---
ASSUMED CARE OF PT PT NEW ADMIT DONE PT WANTED TO SLEEP AND NOT BE BOTHERED, PT WAS STABALIZED, IV INFUSING, LIGHTS TURNED OFF AND BOTH PT AND PARTNER SLEEPING.
--- NOTE | 2025-04-17 19:15 | NUR ---
1030 PT AWOKE A/O X 4 AND IN A PLEASENT MOOD, PT WAS ASSISTED TO BATHROOM WITH MINIMAL ASSIST. STOOL SAMPLE WAS SENT TO LAB FOR CDIFF. PT ASSISTED BACK TO BED NO CHANGE IN CONDITION.
--- NOTE | 2025-04-17 19:17 | NUR ---
CDIFF POSITIVE, ISO EQUIPT TO ROOM, PT NOTIFIED AND ORAL TREATMENT WAS STARTED. PT C/O ANXIETY AND WAS GIVEN HOME DOSAGE OF VALIUM. MED REQ TO BE FINALIZED BY MD. PT RIGHT CHEST WALL CENTRAL LINE ACCESSED AND UTILIZED.
[2025-04-17 19:34] VITALS: BP 126/88
--- NOTE | 2025-04-17 20:46 | NUR ---
PT COMPLAINED OF SEVERE ANXIETY. RN OBTAINED A 1 TIME DOSE OF 0.5MG IV ATIVAN FOR QUICK RELIEF. PATIENT BEGAN TO COMPLAIN OF R SIDE CHEST PAIN AND SOB. VITAL SIGNS TAKEN- OXYGEN SAT 100% ON ROOM AIR AND VITAL SIGNS STABLE. DR. VALADEZ NOTIFIED- EKG COMPLETED. EKG SHOWED NSR. RN FOLLOWED UP WITH TELE MONITOR WHO STATES PATIENT WAS NSR WITH HR AT 68.
[2025-04-17] MEDS ORDERED: Insulin Glargine 100 Unit/ML 3 ML SYR SC SCH (21:00)
[2025-04-18] MEDS ORDERED: NS 250 ML IV PRN (04:20)
--- NOTE | 2025-04-18 04:42 | NUR ---
PATIENT ALERT AND ORIENTED X 4 DURING SHIFT AND ABLE TO MAKE NEEDS KNOWN. ENTERIC PRECAUTIONS FOR C DIFF. PATIENT WAS ABLE TO SHOWER-FEELING BETTER AFTER SHOWER. Garnet BiotherapeuticsPORT ACCESSED-RUNNING KVO. NO NAUSEA OR VOMITING DURING SHIFT. PATIENT MEDICATED FOR PAIN ADN ANXIETY-SEE EMAR. BED IN LOW POSITION WITH WHEELS LOCKED. AT BEDSIDE. CALL LIGHT WITHIN REACH
[2025-04-18 06:14] VITALS: BP 83/54
[2025-04-18 06:22] VITALS: BP 91/66
[2025-04-18 06:51] LABS: BASOPHILS ABSOLUTE AUTO 0.02 K/mm3 (0.00-0.23); BASOPHILS PERCENT AUTO 1 % (0-2); EOSINOPHILS ABSOLUTE AUTO 0.14 K/mm3 (0.00-0.68); EOSINOPHILS PERCENT AUTO 7 % (0-6); Hematocrit 22.6 % (33.0-51.0); Hemoglobin 7.5 g/dL (11.5-16.0); Mean Corpuscular HGB Conc 33.2 g/dL (31.5-36.5); Mean Corpuscular Volume 98 fL (80-100); NRBC ABSOLUTE 0.00 K/mm3 (0.00-0.02); NRBC Auto 0.0 /100 WBC (0.0-0.2); Platelet Count 68 K/mm3 (150-400); RDW Coefficient Variation 17.4 % (11.7-14.2); RDW Standard Deviation 62.1 fL (35.1-46.3)
[2025-04-18 06:56] LABS: Alanine Aminotransfer (ALT/SGP 69.0 U/L (12-78); Albumin, Blood 2.0 g/dL (3.4-5.0); Albumin/Globulin Ratio 0.6 (0.8-1.8); Anion Gap 6.0 mmol/L (3-11); Aspartate Aminotrans (AST/SGOT 79.0 U/L (12-37); Bilirubin, Total 0.4 mg/dL (0.1-1.0); Blood Urea Nitrogen 9.0 mg/dL (8-24); CO2, Blood 26.0 mmol/L (21-32); Calcium, Blood 7.8 mg/dL (8.5-10.1); Chloride, Blood 113.0 mmol/L (98-108); Creatinine, Blood 0.68 mg/dL (0.40-1.00); Globulin, Blood 3.1 g/dL (2.2-4.0); Glucose, Blood 139.0 mg/dL (70-99); Magnesium, Blood 1.8 mg/dL (1.6-2.4); Potassium, Blood 3.3 mmol/L (3.5-5.5); Sodium, Blood 142.0 mmol/L (136-145); Total Protein, Blood 5.1 g/dL (6.4-8.2)
[2025-04-18 07:01] LABS: IMMATURE GRAN ABSOLUTE AUTO 0.01 K/mm3 (0.00-0.10); IMMATURE GRAN PERCENT AUTO 1 % (0-1); LYMPHOCYTES ABSOLUTE AUTO 0.74 K/mm3 (0.84-5.20); LYMPHOCYTES PERCENT AUTO 37 % (21-46); MONOCYTES ABSOLUTE AUTO 0.11 K/mm3 (0.16-1.47); MONOCYTES PERCENT AUTO 5 % (4-13); NEUTROPHILS ABSOLUTE AUTO 1.01 K/mm3 (1.96-9.15); NEUTROPHILS PERCENT AUTO 50 % (41-73)
[2025-04-18] MEDS ORDERED: Insulin Human Lispro 100 Units/ML 3ML Syringe SC SCH (07:30)
[2025-04-18 08:31] VITALS: BP 109/75
[2025-04-18 08:57] LABS: BASOPHILS ABSOLUTE AUTO 0.02 K/mm3 (0.00-0.23); BASOPHILS PERCENT AUTO 1 % (0-2); EOSINOPHILS ABSOLUTE AUTO 0.18 K/mm3 (0.00-0.68); EOSINOPHILS PERCENT AUTO 8 % (0-6); Hematocrit 23.3 % (33.0-51.0); Hemoglobin 7.6 g/dL (11.5-16.0); IMMATURE GRAN ABSOLUTE AUTO 0.01 K/mm3 (0.00-0.10); IMMATURE GRAN PERCENT AUTO 1 % (0-1); LYMPHOCYTES ABSOLUTE AUTO 0.79 K/mm3 (0.84-5.20); LYMPHOCYTES PERCENT AUTO 36 % (21-46); MONOCYTES ABSOLUTE AUTO 0.10 K/mm3 (0.16-1.47); MONOCYTES PERCENT AUTO 5 % (4-13); Mean Corpuscular HGB Conc 32.6 g/dL (31.5-36.5); Mean Corpuscular Volume 98 fL (80-100); NEUTROPHILS ABSOLUTE AUTO 1.08 K/mm3 (1.96-9.15); NEUTROPHILS PERCENT AUTO 50 % (41-73); NRBC ABSOLUTE 0.00 K/mm3 (0.00-0.02); NRBC Auto 0.0 /100 WBC (0.0-0.2); Platelet Count 69 K/mm3 (150-400); RDW Coefficient Variation 17.3 % (11.7-14.2); RDW Standard Deviation 62.0 fL (35.1-46.3)
[2025-04-18] MEDS ORDERED: VANCOCIN HCL125 MG PO (12:19)
[2025-04-18] MEDS ORDERED: VISBIOME 112.51 EACH PO (12:20)
--- NOTE | 2025-04-18 14:00 | NUR ---
assumed care pt a/o and ready to leave, awaiting for md to get orders to go, pt patiently eating breakfast, partner at bedside.
--- NOTE | 2025-04-18 14:01 | NUR ---
discharge orders received and explained to pt, hand wriiten script given for oral antibiotics. mediport flushed with heparin and deaccessed. pt taken via wheel chair
== END 2025-04-18 13:00 | disposition home or self-care (01) | DRG 372 ==
LOC: ER 23:28 → MEDS 23:29 → ER 23:29 → MEDS 23:30
PROVIDERS: Internal Medicine; Student in an Organized Health Care Education/Training Program; ADMIT Internal Medicine
DX: A04.72 Enterocolitis due to Clostridium difficile, not specified as recurrent (principal); C15.9 Malignant neoplasm of esophagus, unspecified; D61.818 Other pancytopenia; E86.0 Dehydration; E87.6 Hypokalemia; F41.9 Anxiety disorder, unspecified; F31.9 Bipolar disorder, unspecified; M19.90 Unspecified osteoarthritis, unspecified site; E11.9 Type 2 diabetes mellitus without complications; D64.9 Anemia, unspecified; F43.10 Post-traumatic stress disorder, unspecified; Z90.49 Acquired absence of other specified parts of digestive tract; Z98.890 Other specified postprocedural states; Z79.899 Other long term (current) drug therapy; Z79.891 Long term (current) use of opiate analgesic; Z79.85 Long-term (current) use of injectable non-insulin antidiabetic drugs; Z88.0 Allergy status to penicillin; Z88.1 Allergy status to other antibiotic agents; Z88.8 Allergy status to other drugs, medicaments and biological substances; Z91.048 Other nonmedicinal substance allergy status; Z87.891 Personal history of nicotine dependence; Z87.81 Personal history of (healed) traumatic fracture
CPT/HCPCS: 71045; 80053; 82947; 83605; 83690; 83735; 83880; 84100; 84132; 85025; 87324; 87507; 93005; 93010; 96361; 96365; 96366; 96375; 96376; 99285-25; A9270; G0378; J1630; J1642; J2060; J2405; J2470; J2765; J3475; J3480; J7030

== ENCOUNTER → 2025-05-28 | Outpatient (CLI) | payer OTHER ==
[~2025-05-28] MED LIST changes: +METO10 PO; +POTA10T PO; +PROM12.5S PR; +VANCOCIN HCL125 MG PO; +VISBIOME 112.51 EACH PO
[2025-05-28 19:28] LABS: Campylobacter Sp Not Detected (NOT DETECT); Salmonella Sp Not Detected (NOT DETECT); Vibrio Sp Not Detected (NOT DETECT)
[2025-05-28 19:29] LABS: E. Coli O157 Not Detected (NOT DETECT); Enteroaggregative E. coli-EAEC Not Detected (NOT DETECT); Enteropathogenic E. coli-EPEC Not Detected (NOT DETECT); Enterotoxigenic E. coli-ETEC Not Detected (NOT DETECT); Shiga Toxin-prod E. coli-STEC Not Detected (NOT DETECT); Shigella/Enteroin E. coli-EIEC Not Detected (NOT DETECT)
== END ==
LOC: LAB 16:38 → LAB SHORT 16:38
PROVIDERS: Nurse Practitioner Family
DX: A04.72 Enterocolitis due to Clostridium difficile, not specified as recurrent (principal)
CPT/HCPCS: 87507

== ENCOUNTER 2025-07-02 01:01 | Day surgery (SDC) | payer OTHER ==
[~2025-07-02 01:01] MED LIST changes: +DESITIN DAILY136 GM TOP
[2025-07-02] MEDS ORDERED: NS 250 ML IV SCH (06:40)
[2025-07-02 08:57] VITALS: BP 80/54
[2025-07-02 09:18] VITALS: BP 81/53
[2025-07-02 10:19] VITALS: BP 89/64
[2025-07-02 10:47] VITALS: BP 88/58
== END 2025-07-02 10:54 | disposition home or self-care (01) ==
LOC: ATC 01:01
DX: C15.5 Malignant neoplasm of lower third of esophagus (principal); D64.9 Anemia, unspecified; E11.9 Type 2 diabetes mellitus without complications; Z87.891 Personal history of nicotine dependence; Z88.0 Allergy status to penicillin; Z88.8 Allergy status to other drugs, medicaments and biological substances; Z91.048 Other nonmedicinal substance allergy status
CPT/HCPCS: 36415; 36430; 86850; 86900; 86901; 86923; J1642; J7050; P9016

== ENCOUNTER 2025-07-05 17:19 | Emergency (ER) | payer OTHER ==
[~2025-07-05] VITALS: Ht 167.6 cm; Wt 96.6 kg
[2025-07-05 19:40] LABS: BASOPHILS ABSOLUTE AUTO 0.02 K/mm3 (0.00-0.23); BASOPHILS PERCENT AUTO 1 % (0-2); EOSINOPHILS ABSOLUTE AUTO 0.26 K/mm3 (0.00-0.68); EOSINOPHILS PERCENT AUTO 6 % (0-6); Hematocrit 25.5 % (33.0-51.0); Hemoglobin 8.5 g/dL (11.5-16.0); IMMATURE GRAN ABSOLUTE AUTO 0.02 K/mm3 (0.00-0.10); IMMATURE GRAN PERCENT AUTO 1 % (0-1); LYMPHOCYTES ABSOLUTE AUTO 0.52 K/mm3 (0.84-5.20); LYMPHOCYTES PERCENT AUTO 13 % (21-46); MONOCYTES ABSOLUTE AUTO 0.68 K/mm3 (0.16-1.47); MONOCYTES PERCENT AUTO 17 % (4-13); Mean Corpuscular HGB Conc 33.3 g/dL (31.5-36.5); Mean Corpuscular Volume 104 fL (80-100); NEUTROPHILS ABSOLUTE AUTO 2.57 K/mm3 (1.96-9.15); NEUTROPHILS PERCENT AUTO 63 % (41-73); NRBC ABSOLUTE 0.00 K/mm3 (0.00-0.02); NRBC Auto 0.0 /100 WBC (0.0-0.2); Platelet Count 188 K/mm3 (150-400); RDW Coefficient Variation 21.1 % (11.7-14.2); RDW Standard Deviation 82.3 fL (35.1-46.3)
[2025-07-05] MEDS ORDERED: OxyCODONE 10/Acetamin 325 TABLET PO ONE (19:45)
[2025-07-05 20:19] LABS: Alanine Aminotransfer (ALT/SGP 21.0 U/L (12-78); Albumin, Blood 2.1 g/dL (3.4-5.0); Albumin/Globulin Ratio 0.6 (0.8-1.8); Anion Gap 7.0 mmol/L (3-11); Aspartate Aminotrans (AST/SGOT 47.0 U/L (12-37); Bilirubin, Total 1.3 mg/dL (0.1-1.0); Blood Urea Nitrogen 6.0 mg/dL (8-24); CO2, Blood 24.0 mmol/L (21-32); Calcium, Blood 7.7 mg/dL (8.5-10.1); Chloride, Blood 111.0 mmol/L (98-108); Creatinine, Blood 0.6 mg/dL (0.40-1.00); Globulin, Blood 3.7 g/dL (2.2-4.0); Glucose, Blood 111.0 mg/dL (70-99); Potassium, Blood 3.2 mmol/L (3.5-5.5); Sodium, Blood 139.0 mmol/L (136-145); Total Protein, Blood 5.8 g/dL (6.4-8.2)
[2025-07-05] MEDS ORDERED: Potassium Chloride 10 Meq Tablet SA PO ONE (21:10)
[2025-07-05 21:30] VITALS: BP 108/61
== END 2025-07-05 21:38 | disposition home or self-care (01) ==
LOC: ER 17:19
PROVIDERS: Emergency Medicine
DX: L89.022 Pressure ulcer of left elbow, stage 2 (principal); L89.321 Pressure ulcer of left buttock, stage 1; E11.622 Type 2 diabetes mellitus with other skin ulcer; L89.311 Pressure ulcer of right buttock, stage 1; E87.6 Hypokalemia; R07.89 Other chest pain; Z87.891 Personal history of nicotine dependence; R74.01 Elevation of levels of liver transaminase levels; R60.0 Localized edema
CPT/HCPCS: 71045; 80053; 84484; 85025; 93005; 93010; 99284-25; A9270; J1642

== ENCOUNTER 2025-07-10 20:00 | Emergency (ER) | payer OTHER ==
[~2025-07-10] VITALS: Ht 167.6 cm; Wt 96.6 kg
[2025-07-10 20:20] VITALS: BP 118/68
[2025-07-10] MEDS ORDERED: NYSTRIT TOP (20:55)
[2025-07-10] MEDS ORDERED: CEPH500 PO (20:55)
[2025-07-10] MEDS ORDERED: Nystatin 100,000 Unit/GM Ointment 15 GM TOP ONE (20:55)
== END 2025-07-10 21:30 | disposition home or self-care (01) ==
LOC: ER 20:00
DX: L03.114 Cellulitis of left upper limb (principal); L30.9 Dermatitis, unspecified; B37.2 Candidiasis of skin and nail; L89.151 Pressure ulcer of sacral region, stage 1; M19.90 Unspecified osteoarthritis, unspecified site; F43.10 Post-traumatic stress disorder, unspecified; E11.9 Type 2 diabetes mellitus without complications; Z85.01 Personal history of malignant neoplasm of esophagus; Z87.891 Personal history of nicotine dependence; Z79.899 Other long term (current) drug therapy; Z79.4 Long term (current) use of insulin; Z88.0 Allergy status to penicillin; Z91.048 Other nonmedicinal substance allergy status; Z88.8 Allergy status to other drugs, medicaments and biological substances
CPT/HCPCS: 99282; A9270

== ENCOUNTER 2025-07-12 17:37 | Inpatient (IN) | payer OTHER ==
[~2025-07-12] VITALS: Ht 167.6 cm; Wt 97.8 kg
[~2025-07-12 17:37] MED LIST changes: +Propofol 10mg/ml 20 ml Vial (Procedural) IV ONE
[2025-07-12 18:07] LABS: BASOPHILS ABSOLUTE AUTO 0.03 K/mm3 (0.00-0.23); BASOPHILS PERCENT AUTO 0 % (0-2); EOSINOPHILS ABSOLUTE AUTO 0.07 K/mm3 (0.00-0.68); EOSINOPHILS PERCENT AUTO 1 % (0-6); Hematocrit 26.7 % (33.0-51.0); Hemoglobin 8.8 g/dL (11.5-16.0); IMMATURE GRAN ABSOLUTE AUTO 0.06 K/mm3 (0.00-0.10); IMMATURE GRAN PERCENT AUTO 1 % (0-1); LYMPHOCYTES ABSOLUTE AUTO 0.50 K/mm3 (0.84-5.20); LYMPHOCYTES PERCENT AUTO 6 % (21-46); MONOCYTES ABSOLUTE AUTO 0.87 K/mm3 (0.16-1.47); MONOCYTES PERCENT AUTO 10 % (4-13); Mean Corpuscular HGB Conc 33.0 g/dL (31.5-36.5); Mean Corpuscular Volume 106 fL (80-100); NEUTROPHILS ABSOLUTE AUTO 6.93 K/mm3 (1.96-9.15); NEUTROPHILS PERCENT AUTO 82 % (41-73); NRBC ABSOLUTE 0.00 K/mm3 (0.00-0.02); NRBC Auto 0.0 /100 WBC (0.0-0.2); Platelet Count 138 K/mm3 (150-400); RDW Coefficient Variation 20.8 % (11.7-14.2); RDW Standard Deviation 82.2 fL (35.1-46.3)
[2025-07-12 18:31] LABS: Alanine Aminotransfer (ALT/SGP 27.0 U/L (12-78); Albumin, Blood 2.0 g/dL (3.4-5.0); Albumin/Globulin Ratio 0.5 (0.8-1.8); Anion Gap 10.0 mmol/L (3-11); Aspartate Aminotrans (AST/SGOT 64.0 U/L (12-37); Bilirubin, Total 1.8 mg/dL (0.1-1.0); Blood Urea Nitrogen 8.0 mg/dL (8-24); CO2, Blood 22.0 mmol/L (21-32); Calcium, Blood 7.8 mg/dL (8.5-10.1); Chloride, Blood 109.0 mmol/L (98-108); Creatinine, Blood 0.63 mg/dL (0.40-1.00); Globulin, Blood 3.8 g/dL (2.2-4.0); Glucose, Blood 234.0 mg/dL (70-99); Potassium, Blood 3.6 mmol/L (3.5-5.5); Sodium, Blood 137.0 mmol/L (136-145); Total Protein, Blood 5.8 g/dL (6.4-8.2)
[2025-07-12] MEDS ORDERED: LORazepam 2 MG/ML 1ML Injection IV ONE (19:35)
[2025-07-12] MEDS ORDERED: Morphine Sulfate 10 MG/ML 1MLSYR IV ONE (21:00)
[2025-07-12] MEDS ORDERED: CefTRIAXone Sodium 2,000 MG in NS 100 ML IV ONE (21:00)
[2025-07-12] MEDS ORDERED: NS 1,000 ML IV SCH (21:15)
[2025-07-12] MEDS ORDERED: Vancomycin (Pharmacy Consult) IV PRN (21:15)
[2025-07-12] MEDS ORDERED: FLU VACC TS2025-26(6MOS UP)/PF 45 MCG/0.5 ML SYRINGE IM SCH (22:15)
[2025-07-12] MEDS ORDERED: Morphine Sulfate 4 MG/1 ML Injection IV PRN (22:20)
[2025-07-12] MEDS ORDERED: Naloxone HCl 0.4MG / ML 1ML Vial IV PRN (22:20)
[2025-07-13] VITALS (50 sets, daily range): BP systolic 67–123; BP diastolic 44–106
[2025-07-13] MEDS ORDERED: Furosemide 10 MG / ML 2ML Vial IV ONE (01:45)
[2025-07-13 01:55] LABS: pH Blood Venous 7.44 (7.34-7.37)
[2025-07-13 01:57] LABS: BASOPHILS ABSOLUTE AUTO 0.05 K/mm3 (0.00-0.23); BASOPHILS PERCENT AUTO 1 % (0-2); EOSINOPHILS ABSOLUTE AUTO 0.10 K/mm3 (0.00-0.68); EOSINOPHILS PERCENT AUTO 1 % (0-6); Hematocrit 30.6 % (33.0-51.0); Hemoglobin 9.8 g/dL (11.5-16.0); IMMATURE GRAN ABSOLUTE AUTO 0.10 K/mm3 (0.00-0.10); IMMATURE GRAN PERCENT AUTO 1 % (0-1); LYMPHOCYTES ABSOLUTE AUTO 0.63 K/mm3 (0.84-5.20); LYMPHOCYTES PERCENT AUTO 6 % (21-46); MONOCYTES ABSOLUTE AUTO 1.16 K/mm3 (0.16-1.47); MONOCYTES PERCENT AUTO 11 % (4-13); Mean Corpuscular HGB Conc 32.0 g/dL (31.5-36.5); Mean Corpuscular Volume 109 fL (80-100); NEUTROPHILS ABSOLUTE AUTO 8.26 K/mm3 (1.96-9.15); NEUTROPHILS PERCENT AUTO 80 % (41-73); NRBC ABSOLUTE 0.00 K/mm3 (0.00-0.02); NRBC Auto 0.0 /100 WBC (0.0-0.2); Platelet Count 133 K/mm3 (150-400); RDW Coefficient Variation 21.0 % (11.7-14.2); RDW Standard Deviation 84.8 fL (35.1-46.3)
[2025-07-13 02:36] LABS: Alanine Aminotransfer (ALT/SGP 29.0 U/L (12-78); Albumin, Blood 2.1 g/dL (3.4-5.0); Albumin/Globulin Ratio 0.5 (0.8-1.8); Anion Gap 12.0 mmol/L (3-11); Aspartate Aminotrans (AST/SGOT 85.0 U/L (12-37); Bilirubin, Total 2.1 mg/dL (0.1-1.0); Blood Urea Nitrogen 8.0 mg/dL (8-24); CO2, Blood 20.0 mmol/L (21-32); Calcium, Blood 8.4 mg/dL (8.5-10.1); Chloride, Blood 110.0 mmol/L (98-108); Creatinine, Blood 0.58 mg/dL (0.40-1.00); Globulin, Blood 4.3 g/dL (2.2-4.0); Glucose, Blood 151.0 mg/dL (70-99); Magnesium, Blood 1.7 mg/dL (1.6-2.4); Potassium, Blood 3.9 mmol/L (3.5-5.5); Sodium, Blood 138.0 mmol/L (136-145); Total Protein, Blood 6.4 g/dL (6.4-8.2)
[2025-07-13] MEDS ORDERED: LORazepam 2 MG/ML 1ML Injection IV ONE (02:50)
[2025-07-13 04:48] LABS: pH Blood Arterial 7.46 (7.35-7.45)
--- NOTE | 2025-07-13 06:03 | NUR ---
ADMIT AND SUMMARY: REPORT RECEIVED FROM ANAYELI, STOCK PREPARATION SUPERVISOR AND PT T/F TO ROOM 306 AT 0120. SHE'S ALERT TO SELF, FAMILY AND SURROUNDINGS BUT DISORIENTED OTHERWISE AND IS VERY DIFFICULT TO REDIRECT AT TIMES. SHE INITIALLY WAS EXTREMELEY NONCOMPLIANT W/CARE AND TREATMENT MODALITIES, REFUSING LABS, VITALS, REPOSTIONING, PHOTOS OF WOUNDS, MEDIPORT ACCESS AND WOULDN'T ALLOW STAFF TO ASSESS HER. BUT SHE BECAME SLIGHTLY MORE COOPERATIVE WHEN AN RN FAMILIAR TO HER (DIDI ORTEGA) HELPED W/CARE. DIDI WAS ABLE TO ADMINISTER PRN IV MORPHINE AND X1 IV ATIVAN PER EMAR TO IMPROVE PT'S COMFORT LEVEL. THEN SHE ALLOWED HER TO ACCESS HER MEDIPORT, TAKE PHOTOS OF THE REDNESS/STAGE 1 PRESSURE INJURY AND OPEN SORES/BLISTERS TO BUTTOCKS/ALEC AREA WELL THE WEEPING RED RASH UNDER HER BREASTS. LOTRIMIN CREAM WAS APPLIED BREAST FOLDS PER EMAR AND ZINC OINTMENT WAS APPLIED TO BUTTOCKS/ALEC AREA. UA STILL NEEDS COLLECTED BUT SHE REFUSED PURE WIC AND RASHEED PLACEMENT DESPITE RATIONALE AND NEED EXPLAINED R/T WOUND HEALING. 2+ EDEMA NOTED TO BLE'S W/GENERAL ANASARCA OBSERVED, X1 IV LASIX RECEIVED. IV ABX PROVIDED PER EMAR THEN MEDIPORT WAS HEP LOCKED. SHE BECOMES VERY DYSPNEIC AND SOB W/EXERTION BUT INSISTS ON USING BSC. PT REMOVES O2 WHEN OOB DESPITE O2 DESATURATIONS DOWN TO 70% ON RA AND TAKING LONG TIME TO RECOVER W/O2 MAXED TO 15L VIA OXIMASK OR NON-REBREATHER. PT DOESN'T TOLERATE O2 UNLESS ANXIETY AND PAIN IS WELL CONTROLLED, AND EVEN THEN FAMILY AT BEDSIDE IS REPEATEDLY REPLACING IT TO MAINTAIN SPO2>90% ON CONT BIOX. PROVIDERS RX'D STAT VBG AND ABG BUT ABG RESULTS LIKELY INACCURATE D/T BEING ON NON-REBREATHER AND SPO2 100% AT THE TIME. MD'S ARE ALSO TRENDING LACTIC ACID DUE TO LEVEL RISING FROM 3.0 TO 4.3 W/MOST RECENT RESULT PENDING. SHE REMAINS ON TELE AT 90'S-120'S BPM, HIGH 140'S WHEN OOB OR IN PAIN. PRN MORPHINE PROVIDED FOR IMPROVED PAIN CONTROL AND WOB. PT'S AND NIECE ARE VERY ATTENTIVE AND STAY AT BEDSIDE AND REPORT PTSD RE: DOCTORS AND HOSPITALIZATION. THEY STATE PROVIDERS CANNOT ROUND ON PT OR ATTEMPT TO EVALUATE HER W/O THEM AT BEDSIDE OR PT WILL LEAVE AMA. THEY HAVE COURT THIS AM AT 0815 THOUGH AND HOPE TO HAVE SOMEONE ELSE SIT W/HER TO EASE ANXIETY PRN. MADE AWARE AND WILL ENSURE DAY STAFF AID PHYSICIAN ROUNDING WHEN FAMILY RETURNS. WILL REPORT TO DAY RN.
--- NOTE | 2025-07-13 06:40 | NUR ---
CRITICAL LACTIC ACID DOWN TO 4.0 (WAS 4.3). MADE AWARE AND WE DISCUSSED ABG RESULTS. HE WANTS CT PE STUDY TO BE PERFORMED BUT IS DEFERRING TO DAY RN AND PROVIDERS TO DETERMINE APPROPRIATE ANTI-ANXIETY MEDS TO COMPLETE THIS AND IS AWARE THAT T/F TO HIGHER LEVEL OF CARE MAY BE REQUIRED.
[2025-07-13 07:35] LABS: Source, Urine Straight Cath
[2025-07-13 07:39] LABS: Bilirubin, Urine Neg (Neg); Color, Urine Yellow (P-Yellow); Glucose Qualitative, Urine Neg (Neg); Ketones, Urine Neg (Neg); Leukocyte Esterase, Urine 3+ (Neg); Protein, Urine Neg (Neg); Specific Gravity, Urine 1.010 (1.003-1.022); Urobilinogen, Urine NORM (Normal)
[2025-07-13] MEDS ORDERED: Lactobacil 2-S.Thermo-Bifido 1 1 Cap PO SCH (09:00)
--- NOTE | 2025-07-13 11:30 | NUR ---
ROUNDED ON PATIENT, PROVIDER AT BEDSIDE. PATIENT WAS IN RESP DISTRESS. PATIENTS S/O WAS AT BEDSIDE. SHE REPORTED THAT THEY ARE NOT LEAGALLY . SHE REPORTED THAT THEY HAD DONE AN AD BUT NEVER HAD IT NOTARIZED. DISCUSSED WITH JIG MAKER WHO PROVIDED ADDITIONAL FAMILY CONTACT INFORMATION. DISCUSSED FAMILY DYNAMIC WITH S/O. SHE EXPRESSED THAT FAMILY HAS BEEN ASTRAINGED. SHE HAS THREE HALF SIBLINGS, THEY WERE NOT CLOSE GROWING UP AND THEY HAVE NOT SPOKEN IN YEARS. PATIENT HAS ESO CANCER AND SEES DR. PAN. PATIENT AND SO EXPRESSED THAT THEY WANT EVERYTHING DONE AT THIS TIME. SHE WAS TRANSFERED TO ICU. DISCUSSED THE CASE IN DEPTH WITH ROBERT HORVATH. HE RECOMENDED S/O BRING IN AD.
[2025-07-13] MEDS ORDERED: LORazepam 2 MG/ML 1ML Injection IV PRN (12:00)
--- NOTE | 2025-07-13 12:45 | NUR ---
TRANSFER TO ICU- DR. GARZA AT BEDSIDE FOR ROUNDING. PT BECAME VERY ANXIOUS AND IRRITATED. ATTEMPTING TO HELP GET PT COMFORTABLE IN BED. PT REMOVED OXY MASK AND THEN REFUSED TO KEEP ON. ATTEMPTED TO PLACE ON NON REBREATHER, PT PULLING MASK OFF STATING "I CANT DO THIS" HOLDING NON REBREATHER CLOSE TO FACE. PT NOT TOLORATING. SAT MAINTAINING 70S TO 80S. HR ST 130S. PER DR. GARZA, GIVE ATIVAN 1 MG IV NOW. PT CONTINUE TO REMOVE MASK. RT AND ICU CHARGE CALLED TO BEDSIDE TO ASSESS. PER DR. GARZA GIVE MORPHINE 2MG IV NOW. PT CONTINUE TO REMOVE MASK. PER DR. GARZA GIVE ADDITIONAL ATIVAN 1MG IV NOW. PT TRANSFERED TO ICU 10. REPORT GIVEN TO BELLA MCKEON. SPOUSE WITH PALLIATIVE CARE RN TO DISCUSS GOALS OF CARE. ALL PERSONAL ITEMS TRANSFER WITH SPOUSE TO ICU 10.
--- NOTE | 2025-07-13 12:50 | NUR ---
ASSUMED CARE OF PATIENT PT MOVED DOWN TO ICU 10 FROM MEDICAL FLOOR. PATIENT RESTLESS, AGITATED, NOT WANTING TO KEEP OXYGEN ON FACE. PRECEDEX WAS STARTED FIRST AT 0.,4 THEN UP TO 0.6 THEN BACK DOWN TO 0.4. BP WAS ELEVATED UPON TRANSFER THEN HAS SLOWLY STARTED DROPPING ONCE CALMED. PT HAS A MEDIPORT ACCESS. LABS WERE DRAWN FROM IT AND SENT OFF.
[2025-07-13] MEDS ORDERED: FentaNYL Citrate 50 MCG/ML 2 ML Injection IV PRN (13:50)
[2025-07-13 14:06] LABS: pH Blood Arterial 7.46 (7.35-7.45)
--- NOTE | 2025-07-13 14:07 | NUR ---
UPDATE TO TREATMENT PATIENT CALMER AND RESTING COMFORTABLY. OXYGEN CHANGED OVER FROM NON REBREATHER HEATED HIGH FLOW. 60L TITRATING DOWN OXYGEN. RT DID ABG. AWAITING RESULTS. LEVOPHED WAS STARTED AT 4MCG/IV FOR MAP GOAL GREATER THAN 65. SHE IS A SINUS RHYTHM NOW. AT BEDSIDE.
[2025-07-13 14:10] LABS: Anti-Xa UFH, PHA Monitoring <0.10 IU/mL; Prothrombin Time Results 19.7 Sec (9.7-11.5)
[2025-07-13] MEDS ORDERED: Heparin Sodium,Porcine/0.5 NS 500 ML IV SCH (14:20)
[2025-07-13] MEDS ORDERED: Heparin Sodium 5000 Units/ML 1ML MDV IV ONE (14:20)
[2025-07-13] MEDS ORDERED: Vancomycin (Pharmacy Consult) IV SCH (15:40)
[2025-07-13] MEDS ORDERED: Meropenem 2,000 MG in NS 250 ML IV SCH (16:00)
--- NOTE | 2025-07-13 16:05 | NUR ---
WOUND DOC UPDATE PATIENT HAS ESCORIATION TO BOTTOM/ STAGE 1 . PATIENT HAS REDNESS AND MOISTNESS TO UNDER FOLDS AND PANIS REGION AND TO PER LABIAL REGION. CLEANED ALEC AREA, DID WILI AND FOUND 3 SMALL AVULSIONS TO INNER LABIALS.
[2025-07-13] MEDS ORDERED: Vancomycin HCL 2,500 MG in NS 500 ML IV SCH (17:00)
[2025-07-13 17:47] LABS: Influenza A/2009-H1 Not Detected (NOT DETECT); SARS-Cov-2 (COVID-19), BioFire Not Detected (NOT DETECT)
--- NOTE | 2025-07-13 18:03 | NUR ---
END OF SHIFT NOTE PATIENT HAD TO MOVE TO ICU FROM MEDICAL FLOOR TODAY. SHE WAS VERY ANXIOUS AND NOT WILLING TO WEAR HER OXYGEN OR LET STAFF DO PATIENT CARE. .SHE WAS PLACED ON PRECEDEX AND HHF OXYGEN TO SUPPORT HER AIRWAY EFFORTS. SHE CALMED WITH 0.4 MCG/KG OF PRECEDEX BUT WHEN HER BP STARTED DROPPING SHE WAS PLACED ON LEVOPHED AND EVENTUALLY STILL HER PRECEDEX WAS DROPPED TO 0.2MCG/KG. SHE REMAINS ON LEVOPHED AT 4MCG.HER MAP IS STUSTAINING GREATER THAN 65 WITH THAT DOSE. SHE IS GETTING MULTIPLE ANTIBIOTICS. HER MEDIPORT WAS ACCESSED AND PRESSORS ARE GOING INTO THAT. SHE GOT A POWERGLIDE TODAY AND ANTIBIOTICS ARE GOING INTO THAT. SHE IS ON A HEPARIN GTT. CONERN FOR PE PER DR GARZA. PLACED A RASHEED TEMP PROBE D/T ONE SHE IS GETTING LASIX AND NEEDS ACCURATE I/O. FAMILY HAS BEEN AT BED SIDE SINCE SHE CAME DOWN FROM MEDICAL FLOOR. PT IS NOW SINUS RHYTHM RATHER THAN SINUS TACH IN THE 120'S WHEN SHE CAME DOWN.
--- NOTE | 2025-07-13 18:43 | NUR ---
PUT PATIENT IN ISOLATION PT FOUND TO HAVE RHINO VIRUS
[2025-07-13] MEDS ORDERED: CefTRIAXone Sodium 1,000 MG in NS 100 ML IV SCH (21:00)
--- NOTE | 2025-07-13 22:18 | NUR ---
ASSUMED CARE AT 1900 PATIENT IS SEDATED ON PRECEDEX, WAKES TO TOUCH. BECOMES VERY AGITATED WITH ANY STIMULI, STARTS PULLING AT LINES AND TUBES, VERY DIFFICULT TO REDIRECT. SP02 DROPS TO LOW 80s WITH ANY AGITATION. SP02 CURRENTLY 93% ON AIRVO 40L FI02 50%. LS DIMINISHED T/O. HR SR 70s, LEVOPHED INFUSING TO MAINTAIN MAP >65. MEDIPORT FOR PRESSORS. TEMP RASHEED PATENT AND DRAINING TO GRAVITY, LARGE AMOUNT OF URINE OUTPUT. PHOTOS OF WOUNDS TAKEN AT START OF SHIFT, PATIENT VERY RESISTANT, UNABLE TO PHOTOGRAPH WOUNDS ON LABIA/ALEC AREA, DESCRIBED IN SKIN ASSESSMENT. G-TUBE SITE APPEARS INFECTED, CALLED HOSPITALIST AND INFORMED HIM. UNABLE TO CLEAN WOUNDS DUE TO PATIENTS AGITATION AND OXYGEN DEMANDS. PATIENT REPOSITIONED. FAMILY AT BEDSIDE. SEE SHIFT ASSESSMENT FOR MORE INFORMATION.
[2025-07-13 22:33] LABS: Alanine Aminotransfer (ALT/SGP 25.0 U/L (12-78); Albumin, Blood 1.8 g/dL (3.4-5.0); Albumin/Globulin Ratio 0.5 (0.8-1.8); Anion Gap 7.0 mmol/L (3-11); Aspartate Aminotrans (AST/SGOT 69.0 U/L (12-37); Bilirubin, Total 2.7 mg/dL (0.1-1.0); Blood Urea Nitrogen 7.0 mg/dL (8-24); CO2, Blood 27.0 mmol/L (21-32); Calcium, Blood 7.7 mg/dL (8.5-10.1); Chloride, Blood 110.0 mmol/L (98-108); Creatinine, Blood 0.6 mg/dL (0.40-1.00); Globulin, Blood 3.7 g/dL (2.2-4.0); Glucose, Blood 125.0 mg/dL (70-99); Potassium, Blood 3.0 mmol/L (3.5-5.5); Sodium, Blood 141.0 mmol/L (136-145); Total Protein, Blood 5.5 g/dL (6.4-8.2)
[2025-07-13] MEDS ORDERED: Dose Adjust by Pharmacy XX STA (22:40)
[2025-07-13] MEDS ORDERED: NS 250 ML IV PRN (23:10)
[2025-07-14] VITALS (93 sets, daily range): BP systolic 73–147; BP diastolic 50–126
--- NOTE | 2025-07-14 00:01 | NUR ---
ATTEMPTS TO REPOSITION PATIENT RESULT IN PATIENT FIGHTING US, MOVING HERSELF BACK INTO A LEFT LYING POSITION WHERE SHE HAS A PRESSURE WOUND ON HER LEFT ELBOW, PATIENTS SP02 DESATS TO 70s-80s AND TAKES A WHILE TO RECOVER, REMAINS ON AIRVO. MEDICATING WITH FENTANYL PRN AND PATIENT ON PRECEDEX DRIP. STILL UNABLE TO PROVIDE WOUND CARE OR PROPER REPOSITIONING. PATIENT IS ORIENTED X PERSON AND SELF ONLY AT THIS TIME
[2025-07-14] MEDS ORDERED: LORazepam 2 MG/ML 1ML Injection IV ONE ×2 (02:20→06:10)
--- NOTE | 2025-07-14 03:02 | NUR ---
PATIENTS PRECEDEX WAS TURNED OFF JUST AFTER 0100 DUE TO PATIENTS 02 SATS IN THE LOW 80s AND APPEARING APNIEC AT TIMES. OXYGEN REQUIREMENTS INCREASED TO 50L FI02 90%. AT APPROX 0215 PATIENT BECAME VERY AGITATED, ATTEMPTED REPOSITIONING, MOUTH SWABS, S/O AT BEDSIDE TO CONSOLE PATIENT. PATIENT CONTINUED TO ESCALATE AND WAS UNABLE TO BE REORIENTED, 02 SATS DOWN TO 70%, PATIENT ATTEMPTING TO GET OUT OF BED STATING SHE COULD NOT BREATHE, ATTEMPTED BIPAP AND PATIENT STARTED SCREAMING AND RIPPING IT OFF, PLACED BACK ON AIRVO. PRECEDEX WAS TITRATED UP, PER HOSPITALIST IV ATIVAN GIVEN, AND PRN FENTANYL. PATIENT ABLE TO RELAX, ABLE TO GET GOWN CHANGED, LINEN CHANGED AND DUE SOME WOUND CARE ON HER G TUBE AND UNDER BREASTS. PATIENT REPOSITIONED OFF HER LEFT SIDE TO HER RIGHT SIDE. AIRVO CURRENTLY 50L FI02 85%, SP02 94%.
[2025-07-14 06:19] LABS: pH Blood Venous 7.43 (7.34-7.37)
[2025-07-14 06:22] LABS: BASOPHILS ABSOLUTE AUTO 0.04 K/mm3 (0.00-0.23); BASOPHILS PERCENT AUTO 0 % (0-2); EOSINOPHILS ABSOLUTE AUTO 0.02 K/mm3 (0.00-0.68); EOSINOPHILS PERCENT AUTO 0 % (0-6); Hematocrit 26.4 % (33.0-51.0); Hemoglobin 9.0 g/dL (11.5-16.0); IMMATURE GRAN ABSOLUTE AUTO 0.15 K/mm3 (0.00-0.10); IMMATURE GRAN PERCENT AUTO 1 % (0-1); LYMPHOCYTES ABSOLUTE AUTO 0.55 K/mm3 (0.84-5.20); LYMPHOCYTES PERCENT AUTO 4 % (21-46); MONOCYTES ABSOLUTE AUTO 0.61 K/mm3 (0.16-1.47); MONOCYTES PERCENT AUTO 5 % (4-13); Mean Corpuscular HGB Conc 34.1 g/dL (31.5-36.5); NEUTROPHILS ABSOLUTE AUTO 11.69 K/mm3 (1.96-9.15); NEUTROPHILS PERCENT AUTO 90 % (41-73); NRBC ABSOLUTE 0.00 K/mm3 (0.00-0.02); NRBC Auto 0.0 /100 WBC (0.0-0.2); Platelet Count 140 K/mm3 (150-400); RDW Coefficient Variation 20.4 % (11.7-14.2); RDW Standard Deviation 76.3 fL (35.1-46.3)
[2025-07-14 06:25] LABS: Mean Corpuscular Volume 103 fL (80-100)
[2025-07-14] MEDS ORDERED: Dose Adjust by Pharmacy XX STA (06:39)
--- NOTE | 2025-07-14 07:49 | NUR ---
SHIFT SUMMARY PATIENT CONTINUED TO HAVE ANXIETY AND PANIC ATTACKS WHERE SHE WOULD WAKE UP AND WAS UNABLE TO BE CONSOLED. PRECEDEX TITRATED UP, FENTANYL GIVEN AND ATIVAN GIVEN. DR. VALADEZ TO [facility] AND AN ADDITIONAL DOSE OF ATIVAN WAS GIVEN, SEE EMAR. PATIENT DESATS DURING THESE EPISODE AND AIRVO WAS TURNED UP TO 60L FI02 94%, OXIMASK WAS PLACED OVER AIRVO. PATIENT STILL UNABLE TO TOLERATE BIPAP. HR SR 60s. LEVOPHED REMAINS INFUSING TO MAINTAIN MAP >65. TEMP RASHEED PATENT AND DRAINING TO GRAVITY. S/O REMAINS AT BEDSIDE. HOSPITALIST TO CONSULT DRYING CAN WORKER.
--- NOTE | 2025-07-14 08:18 | NUR ---
ASSUMED CARE ASSUMED CARE OF PT AT 0700 WITH PRECEPTOR JOELLE BLANCO. PATIENT IS RESTING WITH EYES CLOSED. SHE IS ON OXIMASK AND OXIMIZER AT 100% FIO2, WITH SP2 >98%. HER RESPIRATIONS ARE SHALLOW AND RAPID. SHE IS ON A HEPARIN DRIP 18UNITS, PRECEDEX AT 0.7MCG/KG/HR, LEVOPHED 4MCG/MIN, VANCOMYACIN, AND MERROPENEM. HER SYSTOLIC BP IS >110, MAP >70. HR IN 50-60S, MONITOR SHOWS SINUS BRADYCARDIA. SHE HAS A MEDIPORT THAT IS ACCESSED, MIDLINE, AND PERIPHERAL IV INFUSING. NURSE VISUALIZED G-TUBE AND IT APPEARS RED, PURULENT, AND EXCORIATED. SKIN HAS MULTIPLE SITES OF BREAKDOWN BEFORE ADMISSION WITH PHOTOS IN THE CHART. TEMP RASHEED IS PATENT AND DRAINING YELLOW URINE TO GRAVITY. TMAX IS 96.8. PATIENT'S PARTNER IS PRESENT AND PARTICIPATES IN CARE. CALL LIGHT IN REACH.
[2025-07-14 08:23] LABS: IMMATURE RETIC FRACTION 32.0 % (2.3-16.0); RETIC HGB EQUIVALENT 39.3 pg (28.20-36.60); RETICULOCYTE COUNT PERCENT 3.28 % (0.50-2.50)
[2025-07-14 08:42] LABS: Alanine Aminotransfer (ALT/SGP 24.0 U/L (12-78); Albumin, Blood 1.7 g/dL (3.4-5.0); Albumin/Globulin Ratio 0.5 (0.8-1.8); Anion Gap 6.0 mmol/L (3-11); Aspartate Aminotrans (AST/SGOT 60.0 U/L (12-37); Bilirubin, Total 2.3 mg/dL (0.1-1.0); Blood Urea Nitrogen 8.0 mg/dL (8-24); CO2, Blood 26.0 mmol/L (21-32); Calcium, Blood 7.7 mg/dL (8.5-10.1); Chloride, Blood 113.0 mmol/L (98-108); Creatinine, Blood 0.55 mg/dL (0.40-1.00); Globulin, Blood 3.6 g/dL (2.2-4.0); Glucose, Blood 145.0 mg/dL (70-99); Potassium, Blood 3.3 mmol/L (3.5-5.5); Sodium, Blood 142.0 mmol/L (136-145); Total Protein, Blood 5.3 g/dL (6.4-8.2)
--- NOTE | 2025-07-14 09:18 | NUR ---
CHANGE IN LOC THIS RN OBSERVED AT 0730 SHIFT ASSESSMENT THAT PATIENT WAS RESPONSIVE TO VERBAL STIMULI, SHOOK HEAD NO AND GROANED WHEN PHYSICAL ASSESSMENT WAS BEING PERFORMED. SHE WITHDREW FROM THIS RN WHEN TAKING A PEDAL PULSE AND BILATERAL RADIAL PULSES. AT 0845 THIS RN ASSESSED PATIENT AGAIN FOR TURN AND TO SEE IF SHE WAS APPROPRIATE FOR TRANSPORT TO CT FOR IMAGING. PATIENT WAS NOT RESPONSIVE TO VERBAL STIMULI AND DID NOT WITHDRAW FROM PAINFUL STIMULI. SHE GRIMACED TO PAINFUL STIMULI AND MOANED, MOVING UPPER EXTREMITIES SLIGHTLY WHEN BEING REPOSITIONED. DR. GARZA AND DR. NORMAN INFORMED AT BEDSIDE.
--- NOTE | 2025-07-14 10:21 | NUR ---
INTUBATION 1021 - Dr Hollis and RTs Krista and Celia at bedside. Plan to intubate patient due to high oxygen requirement. Currently on AIRVO with max settings with face mask also max. 1024 - 50 mg propofol 1026 - 50 mg propofol, levopued increased from 4 mcg/min to 8 mcg/min due to MAP 61 1028 - 8.0, 25 cm at teeth, 50 mg propofol. 1032 - propofol started at 10 mcg/kg/min 1034 - connected to vent. ACVC 16/450/10/100% 1035 - propofol increased to 20 mcg/kg/min due to fighting ventilator 1040 - propofol increased to 30 mcg/kg/min due to fighting ventilator
[2025-07-14] MEDS ORDERED: Cetylpyridinium Chloride 1 EA MISC MT SCH (10:40)
[2025-07-14] MEDS ORDERED: FentaNYL Citrate 50 MCG/ML 2 ML Injection ONE (10:49)
[2025-07-14] MEDS ORDERED: FentaNYL Citrate 50 MCG/ML 2 ML Injection IV PRN (10:50)
[2025-07-14] MEDS ORDERED: LORazepam 2 MG/ML 1ML Injection IV PRN ×2 (10:50)
--- NOTE | 2025-07-14 11:00 | NUR ---
"Spiritual Care - Family support | Nurse request Pt. Is in the process of being intubated, when this inspector publications was contacted to give support to the spouse. Danielle is meeting with a food assistance volunteer when I was invited into the discussion. Spouse was verbalizin the many social service barriers that have hindered their availability to safely live. Considered matters of miranda and belief. Spouse verbalized gratitude for the spisirual care support. Will remain available."
[2025-07-14] MEDS ORDERED: Insulin Regular 100 UNIT/ML 10ML Vial SC SCH (12:00)
[2025-07-14] MEDS ORDERED: Hydrogen Peroxide 1.5 % Solution MT SCH (12:00)
[2025-07-14 12:59] LABS: pH Blood Venous 7.44 (7.34-7.37)
--- NOTE | 2025-07-14 16:16 | NUR ---
ROUNDED ON PT THIS AM. THIS AFTERNOON SHE WAS INTUBATED. PROVIDED HAT, PATIENT USUALLY WEARS A HAT PER SPOUSE.
--- NOTE | 2025-07-14 16:37 | NUR ---
ASSUMED CARE OF PATIENT WITH BS REPORT FROM JOELLE. PT CONTINUES ON VENTILATOR AT THIS TIME. NO CHANGES.
--- NOTE | 2025-07-14 18:20 | NUR ---
PT REMAINS ON THE VENTILATOR, NO CHANGES. SEDATION AT 30MCG WITH PROPOFOL, NOREPINEPHRINE AT 8MCG WITH MAP >65. ANTIBIOTICS INFUSING VIA PIV IN RIGHT FOREARM. HEPARIN UNCHANGED. REMAINS AT BEDSIDE. POSITION CHANGED Q2H AND PRN. GURPREET HUGR IN USE TO WARM PATIENT. TEMP RASHEED TO GRAVITY DRAINAGE.
--- NOTE | 2025-07-14 18:48 | NUR ---
HEPARIN DRIP HAS BEEN DISCONTINUED.
[2025-07-14] MEDS ORDERED: Docusate Sodium Liquid 100 MG UDC PT SCH (21:00)
--- NOTE | 2025-07-14 22:28 | NUR ---
ASSUMED CARE AT 1900 PATIENT IS INTUBATED AND SEDATED ON PROPOFOL. RASS -3, REPSONDS TO PAINFUL STIMULI. WITHDRAWS TO PAIN. SP02 97% ON VENT AC VC 16/450/10/50%, RR 16. LS DIMINISHED. HR SR 60s, BP HYPOTENISVE, LEVOPHED INFUSING TO MAINTAIN MAP >65. RASHEED PATENT AND DRAINING TO GRAVITY. PEG TUBE WAS CLEANED AND FLUSHED WITH STERILE WATER AND PT MEDS GIVEN. PATIENT REPOSITIONED, ORAL CARE DONE. S/O REMIANS AT BEDSIDE. SEE SHIFT ASSESSMENT FOR MORE INFORMATION
[2025-07-14 23:24] LABS: Acinetobacter baumannii DNA Not Detected copy/mL (NOT DETECT); Chlamydia pneumonia Not Detected (NOT DETECT); Enterobacter cloacae DNA Not Detected copy/mL (NOT DETECT); Escherichia coli DNA Not Detected copy/mL (NOT DETECT); Haemophilus influenzae DNA Not Detected copy/mL (NOT DETECT); Human Coronavirus RNA Not Detected (NOT DETECT); Human Metapneumovirus RNA Not Detected (NOT DETECT); Influenza virus A RNA Not Detected (NOT DETECT); Influenza virus B RNA Not Detected (NOT DETECT); Klebsiella aerogenes DNA Not Detected copy/mL (NOT DETECT); Klebsiella oxytoca DNA Not Detected copy/mL (NOT DETECT); Klebsiella pneumoniae DNA Not Detected copy/mL (NOT DETECT); Moraxella catarrhalis DNA Not Detected copy/mL (NOT DETECT); Proteus sp DNA Not Detected copy/mL (NOT DETECT); Pseudomonas aeruginosa DNA Not Detected copy/mL (NOT DETECT); Respiratory syncytial Vir RNA Not Detected (NOT DETECT); Rhinovirus+Enterovirus RNA Detected (NOT DETECT); Serratia marcescens DNA Not Detected copy/mL (NOT DETECT); Staphylococcus aureus DNA Not Detected copy/mL (NOT DETECT); Streptococcus agalactiae DNA Not Detected copy/mL (NOT DETECT); Streptococcus pneumoniae DNA Not Detected copy/mL (NOT DETECT); Streptococcus pyogenes DNA Not Detected copy/mL (NOT DETECT)
[2025-07-15] VITALS (93 sets, daily range): BP systolic 68–103; BP diastolic 45–77
[2025-07-15 04:36] LABS: BASOPHILS ABSOLUTE AUTO 0.03 K/mm3 (0.00-0.23); BASOPHILS PERCENT AUTO 0 % (0-2); EOSINOPHILS ABSOLUTE AUTO 0.14 K/mm3 (0.00-0.68); EOSINOPHILS PERCENT AUTO 1 % (0-6); Hematocrit 25.6 % (33.0-51.0); Hemoglobin 8.7 g/dL (11.5-16.0); IMMATURE GRAN ABSOLUTE AUTO 0.12 K/mm3 (0.00-0.10); IMMATURE GRAN PERCENT AUTO 1 % (0-1); LYMPHOCYTES ABSOLUTE AUTO 0.76 K/mm3 (0.84-5.20); LYMPHOCYTES PERCENT AUTO 6 % (21-46); MONOCYTES ABSOLUTE AUTO 0.61 K/mm3 (0.16-1.47); MONOCYTES PERCENT AUTO 5 % (4-13); Mean Corpuscular HGB Conc 34.0 g/dL (31.5-36.5); Mean Corpuscular Volume 104 fL (80-100); NEUTROPHILS ABSOLUTE AUTO 11.35 K/mm3 (1.96-9.15); NEUTROPHILS PERCENT AUTO 87 % (41-73); NRBC ABSOLUTE 0.02 K/mm3 (0.00-0.02); NRBC Auto 0.2 /100 WBC (0.0-0.2); Platelet Count 183 K/mm3 (150-400); RDW Coefficient Variation 21.2 % (11.7-14.2); RDW Standard Deviation 79.7 fL (35.1-46.3)
[2025-07-15 04:54] LABS: Magnesium, Blood 1.8 mg/dL (1.6-2.4)
[2025-07-15 04:58] LABS: Anion Gap 9 mmol/L (3-11); Blood Urea Nitrogen 12 mg/dL (8-24); CO2, Blood 24 mmol/L (21-32); Calcium, Blood 7.9 mg/dL (8.5-10.1); Chloride, Blood 114 mmol/L (98-108); Creatinine, Blood 0.63 mg/dL (0.40-1.00); Glucose, Blood 127 mg/dL (70-99); Phosphorus, Blood 2.7 mg/dL (2.5-4.9); Potassium, Blood 3.6 mmol/L (3.5-5.5); Sodium, Blood 143 mmol/L (136-145); Vancomycin, Trough 45.7 ug/mL (5.0-10.0)
[2025-07-15] MEDS ORDERED: Pantoprazole Sodium 40 MG Injection IV SCH (06:00)
--- NOTE | 2025-07-15 06:19 | NUR ---
SHIFT SUMMARY PATIENT REMAINS INTUBATED AND SEDATED ON PROPOFOL. RESPONDS TO PAINFUL STIMULI. RASS-3. HR SR 60s, LEVOPHED REMAINS INFUSING TO MAINTAIN MAP >65. SP02 98% ON VENT AC VC 16/450/10/50%, RR 16. SCANT AMOUNT OF CLEAR THIN SECRETIONS SUCTIONED FROM ETT. TEMP RASHEED PATENT AND DRAINING TO GRAVITY. GURPREET QUARLES THAT WAS ON PATIENT UNTIL AROUND MIDNIGHT REMAINS OFF, TEMP 98.3. PATIENT REPOSITIONED Q2 HOURS. CHG BATH DONE. FAMILY REMAINS AT BEDSIDE
[2025-07-15] MEDS ORDERED: CALCIUM GLUC IN NACL, ISO-OSM 50 ML IV ONE (07:45)
--- NOTE | 2025-07-15 08:42 | NUR ---
ASSUMED CARE THIS RN ASSUMED CARE OF PATIENT AT 0700 WITH PRECEPTOR KEVEN BLANCO. PT IS RESTING WITH EYES CLOSED, WEARING HEADPHONES PROVIDED BY SIGNIFICANT OTHER W/ MUSIC PLAYING. SHE IS INTUBATED AND SEDATED. VENT 16/450/10/50% WITH SPO2 >96%. HER RESPIRATIONS ARE EVEN AND UNLABORED. SYSTOLIC BP >80, MAP >65. PATIENT IS ON LEVO 8MCG/MIN, PROPOFOL 30MCG/KG/MIN. HER TMAX IS 98.2. PATIENT HAS A PEG TUBE THAT IS CAPPED. TEMP RASHEED IS PATENT AND DRAINING KAYLYNN URINE TO GRAVITY. BED IN LOWEST POSITION.
[2025-07-15] MEDS ORDERED: Magnesium Hydroxide Conc 10 ML UDC PT PRN (10:55)
[2025-07-15] MEDS ORDERED: Enoxaparin 40 MG/0.4 ML SYR SC SCH (11:00)
[2025-07-15] MEDS ORDERED: Protein Supplement 30 ML UD PT SCH (14:00)
--- NOTE | 2025-07-15 16:14 | NUR ---
DISCUSSED CASE WITH PROVIDER. PATIENT IS STABLE AT THIS POINT. NO NEEDS OTHER THAN SUPPORTATIVE FOR PALLIATIVE CARE OF NOW.
--- NOTE | 2025-07-15 16:32 | NUR ---
"Spiritual Care | Family Support Pt. is intubated and is not responsive. Spouse is at bedside and welcomed my visit. Pts. spouse had been previously requesting food from the staff. Staff requested this welfare director to intervene. After conferring with the attended nurse and her Precursor this welfare director met with the spouse and confirmed that the staff could not contine providing her with food, but...then offered 4 microwave Mac and Cheese meals from my own home. Spouse accepted the meals and verbalized agreement that she understood the staff could not be feeding her moving forward, and verbalized gratitude for the spiritual care support. Informed nursing staff."
[2025-07-15 16:36] LABS: Vancomycin, Trough 30.2 ug/mL (5.0-10.0)
--- NOTE | 2025-07-15 18:41 | NUR ---
SHIFT SUMMARY NO ACUTE EVENTS THIS SHIFT. PATIENT HAS BEEN INTUBATED AND SEDATED WITH A RASS OF -3 TO -4. SHE FROWNS TO VERBAL STIMULI AND PROTECTS HERSELF TO NOXIOUS STIMULI, RAISING BOTH ARMS. SHE IS ON 16/450/10/45% WITH SPO2 >96% WITH RESPIRATIONS EVEN AND UNLABORED. SHE COUGHS WITH TURNS. HER SYSTOLIC BP HAS BEEN BETWEEN 80-90S WITH MAP >65. LEVO AT 8MCG/MIN, PROPOFOL AT 30MCG/KG/MIN. SHE HAS VITAL HP RUNNING AT 25ML/HR (GOAL) WITH Q4H 30ML FLUSHES THROUGH HER PEG TUBE. HER WOUNDS HAVE IMPROVED FROM PICTURES IN CHART, DRYER WITH LESS MACERATION. HER PEG TUBE WOUND IS STILL LIGHTLY OOZING SANCHEZ BROWN PURULENT DISCHARGE. TEMP RASHEED IS DRAINING DARK KAYLYNN URINE TO GRAVITY. TMAXX 99.0. SCDS IN PLACE. BED IN LOWEST POSITION. CALL LIGHT IN REACH.
--- NOTE | 2025-07-15 19:15 | NUR ---
assumed care. received report from day shift. pt on propfol at 30 mics. levophed at 8 mics. tube feeding at 25cc/hour and tolerating it. excoriation under breast improved from pictures. open areas on labias clean. family returning.
[2025-07-15] MEDS ORDERED: Arginine/Glutamine/Calcium Hmb 1 Packet PT SCH (21:00)
[2025-07-16] VITALS (90 sets, daily range): BP systolic 82–125; BP diastolic 57–96
[2025-07-16 03:16] LABS: pH Blood Venous 7.40 (7.34-7.37)
[2025-07-16 03:21] LABS: BASOPHILS ABSOLUTE AUTO 0.02 K/mm3 (0.00-0.23); BASOPHILS PERCENT AUTO 0 % (0-2); EOSINOPHILS ABSOLUTE AUTO 0.13 K/mm3 (0.00-0.68); EOSINOPHILS PERCENT AUTO 2 % (0-6); Hematocrit 26.4 % (33.0-51.0); Hemoglobin 8.8 g/dL (11.5-16.0); IMMATURE GRAN ABSOLUTE AUTO 0.16 K/mm3 (0.00-0.10); IMMATURE GRAN PERCENT AUTO 2 % (0-1); LYMPHOCYTES ABSOLUTE AUTO 0.75 K/mm3 (0.84-5.20); LYMPHOCYTES PERCENT AUTO 10 % (21-46); MONOCYTES ABSOLUTE AUTO 0.50 K/mm3 (0.16-1.47); MONOCYTES PERCENT AUTO 7 % (4-13); Mean Corpuscular HGB Conc 33.3 g/dL (31.5-36.5); Mean Corpuscular Volume 105 fL (80-100); NEUTROPHILS ABSOLUTE AUTO 6.00 K/mm3 (1.96-9.15); NEUTROPHILS PERCENT AUTO 79 % (41-73); NRBC ABSOLUTE 0.02 K/mm3 (0.00-0.02); NRBC Auto 0.3 /100 WBC (0.0-0.2); Platelet Count 147 K/mm3 (150-400); RDW Coefficient Variation 21.2 % (11.7-14.2); RDW Standard Deviation 81.0 fL (35.1-46.3)
[2025-07-16 03:53] LABS: Alanine Aminotransfer (ALT/SGP 29 U/L (12-78); Albumin, Blood 1.4 g/dL (3.4-5.0); Albumin/Globulin Ratio 0.4 (0.8-1.8); Anion Gap 9 mmol/L (3-11); Aspartate Aminotrans (AST/SGOT 79 U/L (12-37); Bilirubin, Total 1.8 mg/dL (0.1-1.0); Blood Urea Nitrogen 20 mg/dL (8-24); CO2, Blood 24 mmol/L (21-32); Calcium, Blood 8.0 mg/dL (8.5-10.1); Chloride, Blood 114 mmol/L (98-108); Creatinine, Blood 0.74 mg/dL (0.40-1.00); Globulin, Blood 3.9 g/dL (2.2-4.0); Glucose, Blood 178 mg/dL (70-99); Magnesium, Blood 1.8 mg/dL (1.6-2.4); Phosphorus, Blood 2.4 mg/dL (2.5-4.9); Potassium, Blood 3.2 mmol/L (3.5-5.5); Sodium, Blood 144 mmol/L (136-145); Total Protein, Blood 5.3 g/dL (6.4-8.2); Vancomycin, Random 25.3 ug/mL
--- NOTE | 2025-07-16 04:52 | NUR ---
Drake NOTIFIED OF LABS. DR. VALADEZ NOTIFIED OF POTASSIUM 3.2, PHOS 2.4. NEW ORDER OF POTASSIUM CHLORIDE.
--- NOTE | 2025-07-16 06:30 | NUR ---
END OF SHIFT. PT HAS 3 + EDEMA IN ALL EXTREMITIES. RESTRAINTS ON FOR PATIENTS PROTECTION. VENT SETTINGS AC 16, TV 450, PEEP 10, FIO2 45%. LEVO DRIP TITRATED FROM 9 TO 3 MICS. PROPOFOL TITRATED DOWN TO 25 MICS. PT VERY ANXIOUS WHEN AWOKEN. DR. VALADEZ NOTIFIED OF POTASSIUM OF 3.2, PHOS 2.4. EXCORIATION UNDER BREAST, GROIN, AND BUTTOCKS LOOK IMPROVED FROM ADMISSION PICTURES. PT TOLERATING TUBE FEEDING AT 25CC/HR.CXR DONE. PT REMAINS IN DROPLET ISOLATION. BS RANGING 140-160.
[2025-07-16] MEDS ORDERED: Potassium Phosphate Dibasic 10 MM in Dextrose 5% 250 ML IV STA (08:47)
--- NOTE | 2025-07-16 16:44 | NUR ---
SHIFT SUMMARY NO ACUTE CHANGES THIS SHIFT. PT REMAINS INTUBATED AND SEDATED. VENT SETTINGS UNCHANGED AT AC 16, TV 450, PEEP 10, FIO2 45%. PT WITH MODERATE AMOUNT OF THICK ETT SECRETIONS WITH SUCTION. PT REMAINS SEDATED WITH PROPOFOL AT 25 MCG/KG/MIN INFUSING THROUGH MEDIPORT TO RIGHT UPPER CHEST. LEVOPHED TITRATED OFF THIS MORNING. VITAL SIGNS HAVE REMAINED STABLE. PT WITH SPONTANEOUS MOVEMENT OF ALL EXTREMITIES. PT DOES NOT OPEN EYES OR FOLLOW COMMANDS AT THIS TIME. PEG TUBE REMAINS C/D/I WITH TF INFUSING AT GOAL RATE. RASHEED TEMP PROBE REMAINS IN PLACE WITH DARK YELLOW URINE OUTPUT NOTED. WOUNDS T/O REMAIN UNCHANGED. SBW RESTRAINTS REMAIN IN PLACE. PT SPOUSE HAS REMAINED AT BEDSIDE THROUGHOUT THE SHIFT. WILL CONTINUE TO MONITOR AND REPORT OFF TO ONCOMING RN.
--- NOTE | 2025-07-16 19:15 | NUR ---
ASSUMED CARE. PT REPORT RECEIVED FROM BELLA BACA. PT SEDATED ON PROPOFOL 25 MICS. LEVOPHED WEANED OFF DURING DAYS. PATIENT AWAKENS TO PAIN. ETT #8 IS A LIP MATY 22 AND R.T. ADJUSTED BACK TO 23. VENT SETTINGS AC 16, TV 450, PEEP 10. FIO2 45%. SPUTUM SUCTIONED FROM ETT IS SLIGHTLY YELLOW TODAY. OPEN AREAS UNDER BREAST LOOK BETTER. 0 DRAINAGE AROUND G TUBE SITE. FLAKY RED PEELING SKIN REMAINS. NO STOOL YET.
[2025-07-16] MEDS ORDERED: Protein Supplement 30 ML UD PT SCH (21:00)
[2025-07-17] VITALS (95 sets, daily range): BP systolic 82–123; BP diastolic 55–101
[2025-07-17 03:15] LABS: Hematocrit 24.3 % (33.0-51.0); Hemoglobin 8.1 g/dL (11.5-16.0); Mean Corpuscular HGB Conc 33.3 g/dL (31.5-36.5); Mean Corpuscular Volume 104 fL (80-100); NRBC ABSOLUTE 0.07 K/mm3 (0.00-0.02); NRBC Auto 0.8 /100 WBC (0.0-0.2); Platelet Count 142 K/mm3 (150-400); RDW Coefficient Variation 21.4 % (11.7-14.2); RDW Standard Deviation 79.0 fL (35.1-46.3)
[2025-07-17 03:33] LABS: Albumin, Blood 1.5 g/dL (3.4-5.0); Anion Gap 6 mmol/L (3-11); Blood Urea Nitrogen 22 mg/dL (8-24); CO2, Blood 25 mmol/L (21-32); Calcium, Blood 7.9 mg/dL (8.5-10.1); Chloride, Blood 118 mmol/L (98-108); Creatinine, Blood 0.61 mg/dL (0.40-1.00); Glucose, Blood 134 mg/dL (70-99); Phosphorus, Blood 1.9 mg/dL (2.5-4.9); Potassium, Blood 3.3 mmol/L (3.5-5.5); Sodium, Blood 146 mmol/L (136-145); Vancomycin, Random 14.7 ug/mL
[2025-07-17 03:35] LABS: BAND PERCENT MAN 3 % (0-8); BASOPHILS ABSOLUTE MAN 0.00 K/mm3 (0.00-0.23); BASOPHILS PERCENT MAN 0 % (0-2); EOSINOPHILS ABSOLUTE MAN 0.17 K/mm3 (0.00-0.68); EOSINOPHILS PERCENT MAN 2 % (0-6); LYMPHOCYTES ABSOLUTE MAN 0.70 K/mm3 (0.84-5.20); LYMPHOCYTES PERCENT MAN 8 % (21-46); MONOCYTES ABSOLUTE MAN 0.53 K/mm3 (0.16-1.47); MONOCYTES PERCENT MAN 6 % (4-13); NEUTROPHILS ABSOLUTE MAN 7.43 K/mm3 (1.96-9.15); SEG NEUTROPHILS PERCENT MAN 81 % (41-73)
[2025-07-17] MEDS ORDERED: Potassium Phosphate Dibasic 10 MM in Dextrose 5% 250 ML IV ONE (04:35)
--- NOTE | 2025-07-17 04:35 | NUR ---
DR. VALADEZ NOTIFIED OF POTASSIUM 3.3 AND PHOSPHEROUS 1.9. NEW ORDER FOR K PHOS .
--- NOTE | 2025-07-17 06:27 | NUR ---
END OF SHIFT. PT HAS TOLERATED VENTILATOR AT AC 16, TV 450, PEEP 10, AND FIO2 35%. SPUTUM IS THINNER AND MORE PRODUCTION THIS SHIFT. LEVOPHED REMAINS OFF. PROPOFOL DECREASED TO 20 MICS. AREA UNDER BREAST IMPROVING AND HAS DRIED SCABBING. INTRADRY IN PLACE. AREA AROUND GTUBE IS DRY6 AND HAS FLACKY RED STARR WITHOUT DRAINAGE.OPEN AREAS ON LABIA REMAIN. F/C DRAINING DARK YELLOW. 4+ PITTING EDEMA ALL EXTREMITIES.DR. VALADEZ NOTIFIED OF POTASSIUM 3.3,PHOSPHEROUS 1.9, AND CALCIUM 7.9 AND POTASSIUM PHOS IV REPLACEMENT INFUSING. PT REMAINS IN DROPLET ISOLATION BUT FAMILY REFUSES TO MASK. SIGNIFICANT OTHER LIVING IN ROOM.
[2025-07-17] MEDS ORDERED: Multivitamins-Minerals Liquid 15 ML Oral Syringe PT SCH (09:00)
--- NOTE | 2025-07-17 10:21 | NUR ---
AM NOTE: THIS RN ASSUMED CARE OF PT AT APPROX 0700, BEDSIDE REPORT FROM GREGORY BLANCO. PT INTUBATED & SEDATED W/ PROPOFOL AT 25 MCG/KG/MIN W/ RASS -4. PROPOFOL TITRATED DOWN TO 15 MCG/KG/MIN, SEE FLOWSHEET FOR TITRATIONS. MOD-LG AMOUNT OF SECRETIONS VIA ETT, THICK/YELLOW. VENT SETTINGS AC/VC+ 16/450/8/45%. COUGH PRESENT, GAG ABSENT. HR 90-100'S, SINUS RHYTHM ON MONITOR. SBP 90-110'S, MAP >65. AFEBRILE W/ CORE TEMP PROBE. RASHEED CATH PATENT & DRAINING URINE TO GRAVITY. PEG TUBE TO LUQ INFUSING TF @20 ML/HR W/ Q4HR FLUSHES. PURULENT DRAINAGE NOTED AROUND PEG TUBE SITE. EXCORIATION/REDNESS NOTED UNDERNEATH BREASTS, OPEN AREAS TO LABIA. MEDIPORT INFUSING, POWERGLIDE PLACED TO GENEVIEVE FOR ADDITIONAL ACCESS. SIGNIFICANT OTHER AT BEDSIDE.
[2025-07-17] MEDS ORDERED: Albumin (Human) 25gm/100ml 100 ML IV ONE (11:00)
[2025-07-17] MEDS ORDERED: Potassium Phosphate Dibasic 30 MM in Dextrose 5% 500 ML IV STA (11:31)
--- NOTE | 2025-07-17 17:22 | NUR ---
END OF SHIFT NOTE: PT REMAINS INTUBATED & SEDATED W/ PROPOFOL GTT @10 MCG/KG/MIN. RASS -4, WITHDRAWS TO PAINFUL STIMULI W/ ALL EXTREMITIES. PUPILS EQUAL & REACTIVE. SPO2 >90% ON VENT; SETTINGS AC/VC+ 16/450/8/45%. MOD-LARGE AMOUNT OF THICK YELLOW SECRETIONS SUCTIONED VIA ETT. HR 70-90'S, SINUS RHYTHM ON MONITOR. SBP 80-110'S, MAP >65. 4+ PITTING EDEMA NOTED. AFEBRILE W/ CORE TEMP. RASHEED CATH PATENT & DRAINING CLEAR YELLOW URINE TO GRAVITY; 2250ML OUTPUT OF THIS TIME. RECTAL TUBE PLACED DUE TO CONTINUOUS LIQUID STOOLS; 400ML OUTPUT. TF INFUSING @20 ML/HR VIA PEG TUBE. FAMILY AT BEDSIDE T/O SHIFT, CARE CONTINUES.
[2025-07-17] MEDS ORDERED: Azithromycin 500 MG VIAL ONE (17:36)
[2025-07-18] VITALS (90 sets, daily range): BP systolic 72–125; BP diastolic 50–93
[2025-07-18 04:29] LABS: Hematocrit 22.3 % (33.0-51.0); Hemoglobin 7.3 g/dL (11.5-16.0); Mean Corpuscular HGB Conc 32.7 g/dL (31.5-36.5); Mean Corpuscular Volume 105 fL (80-100); NRBC ABSOLUTE 0.07 K/mm3 (0.00-0.02); NRBC Auto 0.9 /100 WBC (0.0-0.2); Platelet Count 107 K/mm3 (150-400); RDW Coefficient Variation 21.4 % (11.7-14.2); RDW Standard Deviation 80.6 fL (35.1-46.3)
[2025-07-18 04:51] LABS: BAND PERCENT MAN 9 % (0-8); BASOPHILS ABSOLUTE MAN 0.08 K/mm3 (0.00-0.23); BASOPHILS PERCENT MAN 1 % (0-2); EOSINOPHILS ABSOLUTE MAN 0.16 K/mm3 (0.00-0.68); EOSINOPHILS PERCENT MAN 2 % (0-6); LYMPHOCYTES ABSOLUTE MAN 0.24 K/mm3 (0.84-5.20); LYMPHOCYTES PERCENT MAN 3 % (21-46); MONOCYTES ABSOLUTE MAN 0.64 K/mm3 (0.16-1.47); MONOCYTES PERCENT MAN 8 % (4-13); MYELOCYTE ABSOLUTE MAN 0.32 K/mm3 (0.00-0.00); MYELOCYTE PERCENT MAN 4 % (0-0); NEUTROPHILS ABSOLUTE MAN 6.63 K/mm3 (1.96-9.15); SEG NEUTROPHILS PERCENT MAN 73 % (41-73)
[2025-07-18 05:03] LABS: Albumin, Blood 1.7 g/dL (3.4-5.0); Anion Gap 5 mmol/L (3-11); Blood Urea Nitrogen 23 mg/dL (8-24); CO2, Blood 27 mmol/L (21-32); Calcium, Blood 8.0 mg/dL (8.5-10.1); Chloride, Blood 116 mmol/L (98-108); Creatinine, Blood 0.48 mg/dL (0.40-1.00); Glucose, Blood 148 mg/dL (70-99); Phosphorus, Blood 2.6 mg/dL (2.5-4.9); Potassium, Blood 3.1 mmol/L (3.5-5.5); Sodium, Blood 145 mmol/L (136-145)
--- NOTE | 2025-07-18 06:42 | NUR ---
SHIFT SUMMERY PT REMAINS INTUBATED W/ETT INTACT AND PATENT TO THE VENT. SHE HAS EPISODES OF COUGHING THROUGHOUT THE NIGHT. SHE IS SEDATED W/PROPOFOL, SEE [facility]. RASHEED CATHETER AND RECTAL TUBE ARE INTACT PATENT AND DRAINING TO GRAVITY. SHE HAS BEEN SR ON THE SOLUTION SALES SENIOR EXECUTIVE. BP WNL. TF INFUSING AT GOAL. GIRLFRIEND HAS BEEN AT BEDSIDE OVERNIGHT.
[2025-07-18] MEDS ORDERED: Albumin (Human) 25gm/100ml 100 ML IV SCH (09:00)
[2025-07-18] MEDS ORDERED: Potassium Chl 20MEQ/Water100ML 100 ML IV SCH (12:10)
[2025-07-18] MEDS ORDERED: NS 1,000 ML IV ONE (17:25)
[2025-07-18] MEDS ORDERED: NS 500 ML IV ONE (17:28)
[2025-07-18] MEDS ORDERED: NS 1,000 ML IV SCH (17:30)
--- NOTE | 2025-07-18 18:28 | NUR ---
SHIFT SUMMARY PATIENT INTUBATED AND SEDATED. VENT SETTINGS AC/VC 16/450/8 45% FIO2. MEDIPORT PATENT WITH PROPOFOL INFUSING PER EMAR. SEE FLOWSHEET FOR TITRATIONS. PG TO GENEVIEVE PATENT AND INFUSING NS @75MLS/HR. RASS -3. HR SINUS IN THE 80S-90S. PATIENT RECIEVED 1 500ML BOLUS OF NS FOR LOW BP AND LASIX WERE D/C'D PER DR AUSTIN. BP STABLE WITH MAPS >65 SINCE BOLUS. TEMP RASHEED PATENT AND DRAINING CLEAR YELLOW URINE TO GRAVITY. PEG TUBE PATENT AND INFUSING VHP @GOAL OF 20MLS/HR. RECTAL TUBE PATENT AND DRAINING BROWN STOOL TO GRAVITY. PARTNER AT BEDSIDE UPDATED ON PLAN OF CARE. CALL LIGHT IN REACH. BED IN LOWEST POSITION.
[2025-07-18] MEDS ORDERED: NS 250 ML IV ONE (20:30)
[2025-07-18 21:12] LABS: Hematocrit 21.1 % (33.0-51.0); Hemoglobin 7.1 g/dL (11.5-16.0)
[2025-07-19] VITALS (75 sets, daily range): BP systolic 77–117; BP diastolic 55–91
[2025-07-19 04:31] LABS: BASOPHILS ABSOLUTE AUTO 0.01 K/mm3 (0.00-0.23); BASOPHILS PERCENT AUTO 0 % (0-2); EOSINOPHILS ABSOLUTE AUTO 0.20 K/mm3 (0.00-0.68); EOSINOPHILS PERCENT AUTO 3 % (0-6); Hematocrit 19.9 % (33.0-51.0); Hemoglobin 6.5 g/dL (11.5-16.0); IMMATURE GRAN ABSOLUTE AUTO 0.28 K/mm3 (0.00-0.10); IMMATURE GRAN PERCENT AUTO 5 % (0-1); LYMPHOCYTES ABSOLUTE AUTO 0.44 K/mm3 (0.84-5.20); LYMPHOCYTES PERCENT AUTO 7 % (21-46); MONOCYTES ABSOLUTE AUTO 0.52 K/mm3 (0.16-1.47); MONOCYTES PERCENT AUTO 9 % (4-13); Mean Corpuscular HGB Conc 32.7 g/dL (31.5-36.5); Mean Corpuscular Volume 108 fL (80-100); NEUTROPHILS ABSOLUTE AUTO 4.54 K/mm3 (1.96-9.15); NEUTROPHILS PERCENT AUTO 76 % (41-73); NRBC ABSOLUTE 0.07 K/mm3 (0.00-0.02); NRBC Auto 1.2 /100 WBC (0.0-0.2); Platelet Count 82 K/mm3 (150-400); RDW Coefficient Variation 21.7 % (11.7-14.2); RDW Standard Deviation 82.2 fL (35.1-46.3)
[2025-07-19 04:46] LABS: Albumin, Blood 1.7 g/dL (3.4-5.0); Anion Gap 6 mmol/L (3-11); Blood Urea Nitrogen 28 mg/dL (8-24); CO2, Blood 27 mmol/L (21-32); Calcium, Blood 8.1 mg/dL (8.5-10.1); Chloride, Blood 118 mmol/L (98-108); Creatinine, Blood 0.49 mg/dL (0.40-1.00); Glucose, Blood 166 mg/dL (70-99); Phosphorus, Blood 2.0 mg/dL (2.5-4.9); Potassium, Blood 3.5 mmol/L (3.5-5.5); Sodium, Blood 147 mmol/L (136-145)
--- NOTE | 2025-07-19 07:12 | NUR ---
END OF TOOL MACHINIST SUMMARY: PATIENT REMAINS INTUBATED/SEDATED. AC/VC16/450/8/50% WITH 23 @ LIPS. INTERMITTENTLY MOVES SPONTANIOUSLY BUT DOES NOT FOLLOW COMMANDS. NSR TO MONITOR. INTERMITTENT HYPOTENSION. MD AWARE AND 250 CC NS BOLUS X1 ADMINISTED. NOTE +3/+4 SWELLING TO EXTREMITIES X4 RASHEED TO GRAVITY. NOTE H/H 6.5 THIS AM. 1 U PRBC TO BE ADMINISTED. SAFETY MAINTAINED
[2025-07-19 08:25] LABS: Vancomycin, Trough 15.7 ug/mL (5.0-10.0)
[2025-07-19] MEDS ORDERED: Potassium Phosphate Dibasic 30 MM in Dextrose 5% 500 ML IV STA (08:44)
--- NOTE | 2025-07-19 09:00 | NUR ---
ASSUMPTION OF CARE ASSUMED CARE OF PATIENT AT APPROX 0700. PATIENT INTUBATED AND SEDATED. RASS -3. VENT SETTINGS AC/VC 16/450/8 50% FIO2. HR SINUS IN THE 80S-90S. BP STABLE WITH MAPS >65. MEDIPORT TO RIGHT CHEST WITH PROPOFOL INFUSING PER EMAR. SEE FLOWSHEET FOR TITRATIONS. TEMP RASHEED PATENT AND AND DRAINING URINE TO GRAVITY. PEG TUBE TO LUQ INFUSING VHP @ GOAL OF 20ML/HR. RECTAL TUBE PATENT AND DRAINING BROWN LIQUID STOOL TO GRAVITY. PG TO GENEVIEVE PATENT AND INFUSING NS @75MLS/HR. CALL LIGHT IN REACH. PARTNER AT BEDSIDE.
[2025-07-19] MEDS ORDERED: Cefepime HCl 2,000 MG in NS 100 ML IV SCH (10:25)
[2025-07-19] MEDS ORDERED: Furosemide 10 MG / ML 2ML Vial IV SCH (12:00)
[2025-07-19] MEDS ORDERED: Potassium Phosphate Dibasic 30 MM in Dextrose 5% 500 ML IV SCH (15:00)
--- NOTE | 2025-07-19 19:13 | NUR ---
DAY SHIFT SUMMARY PT REMAINED INTUBATED AND SEDATED THIS SHIFT SHE CONTINUES TO HAVE LARGE AMOUNTS OF THICK SECRETIONS. PT NOT ABLE TO TOLERATE DECREASE INSEDATION SHE COUGH CONTINUOUSLY ON VENTILATOR. PT'S MONITOR SHOWING SR 90'S MOST OF THE SHIFT. BP SOOFT BUT STABLE MAP >65. PT AFEBRILE THIS SHIFT. PT STARTED BACK ON DIURETICS THIS SHIFT W GOOD OUTPUT, SEE I&O'S FOR DETAILS. PT CONTINUES TO HAVE LOOSE STOOLS. WILL REPORT TO ONCOMING RN.
[2025-07-20] VITALS (71 sets, daily range): BP systolic 78–145; BP diastolic 48–91
[2025-07-20 04:10] LABS: BASOPHILS ABSOLUTE AUTO 0.03 K/mm3 (0.00-0.23); BASOPHILS PERCENT AUTO 0 % (0-2); EOSINOPHILS ABSOLUTE AUTO 0.34 K/mm3 (0.00-0.68); EOSINOPHILS PERCENT AUTO 4 % (0-6); Hematocrit 25.6 % (33.0-51.0); Hemoglobin 8.6 g/dL (11.5-16.0); IMMATURE GRAN ABSOLUTE AUTO 0.48 K/mm3 (0.00-0.10); IMMATURE GRAN PERCENT AUTO 5 % (0-1); LYMPHOCYTES ABSOLUTE AUTO 0.65 K/mm3 (0.84-5.20); LYMPHOCYTES PERCENT AUTO 7 % (21-46); MONOCYTES ABSOLUTE AUTO 0.68 K/mm3 (0.16-1.47); MONOCYTES PERCENT AUTO 8 % (4-13); Mean Corpuscular HGB Conc 33.6 g/dL (31.5-36.5); NEUTROPHILS ABSOLUTE AUTO 6.68 K/mm3 (1.96-9.15); NEUTROPHILS PERCENT AUTO 76 % (41-73); NRBC ABSOLUTE 0.12 K/mm3 (0.00-0.02); NRBC Auto 1.4 /100 WBC (0.0-0.2); Platelet Count 87 K/mm3 (150-400); RDW Coefficient Variation 24.8 % (11.7-14.2); RDW Standard Deviation 87.7 fL (35.1-46.3)
[2025-07-20 04:13] LABS: Mean Corpuscular Volume 103 fL (80-100)
[2025-07-20 04:26] LABS: Alanine Aminotransfer (ALT/SGP 44.0 U/L (12-78); Albumin, Blood 1.8 g/dL (3.4-5.0); Albumin/Globulin Ratio 0.5 (0.8-1.8); Anion Gap 5.0 mmol/L (3-11); Aspartate Aminotrans (AST/SGOT 104.0 U/L (12-37); Bilirubin, Direct 1.2 mg/dL (0.0-0.3); Bilirubin, Indirect 0.7 mg/dL (0.1-0.7); Bilirubin, Total 1.9 mg/dL (0.1-1.0); Blood Urea Nitrogen 31.0 mg/dL (8-24); CO2, Blood 30.0 mmol/L (21-32); Calcium, Blood 8.3 mg/dL (8.5-10.1); Chloride, Blood 112.0 mmol/L (98-108); Creatinine, Blood 0.51 mg/dL (0.40-1.00); Globulin, Blood 3.7 g/dL (2.2-4.0); Glucose, Blood 212.0 mg/dL (70-99); Magnesium, Blood 1.6 mg/dL (1.6-2.4); Potassium, Blood 3.4 mmol/L (3.5-5.5); Sodium, Blood 144.0 mmol/L (136-145); Total Protein, Blood 5.5 g/dL (6.4-8.2)
--- NOTE | 2025-07-20 06:52 | NUR ---
INFRASTRUCTURE DESIGN ENGINEER SUMMARY: PATIENT CONTINUES INTUBATED AND SEDATED. AC/VC 16/450/8/50% AND 23@LIPS. RASS -3 THROUGHOUT SHIFT. ON TURN Q2 SCHEDULE. NSR THROUGHOUT SHIFT. TOLERATING PEG TUBE FEEDINGS AT GOAL RATE. RASHEED TO GRAVRITY. PATIENT SPOUSE REQUESTING A DOCTORS NOTE THIS AM IF POSSIBLE. SAFETY AND COMFORT MAINTAINED.
[2025-07-20] MEDS ORDERED: Enoxaparin 40 MG/0.4 ML SYR SC SCH (10:00)
[2025-07-20] MEDS ORDERED: Furosemide 10 MG / ML 2ML Vial IV SCH (10:00)
[2025-07-20] MEDS ORDERED: Magnesium Sulf 2 GM/Water 50ML 50 ML IV ONE (10:00)
[2025-07-20 10:19] LABS: CALPROTECTIN,FECAL 213 ug/g (<=49)
--- NOTE | 2025-07-20 18:44 | NUR ---
DAYSHIFT SUMMARY PT REMAINS INTUBATED/SEDATED W/ PROPOFOL, RUNNING AT 25MCG/KG/MIN. TITRATED FOR RASS GOAL OF -3. PT LUNGS COARSE T/O. LARGE AMOUNTS OF THICK, SANCHEZ SECRETIONS VIA ETT. 8.0 ETT, 23@LIPS. CURRENT VENT SETTINGS 16/450/10/45%FIO2. NSR VIA CONTINUOUS MONITOR, RATE OF 80-90S. BP STABLE, MAP>65. TMAX 100.0. ICE PACKS TO AXILLARY AND FAN PLACED ON PT W/ GOOD EFFECT. GOOD URINE OUTPUT VIA RASHEED CATH, APPROX 2300ML OUT. LIQUID BROWN STOOL VIA RECTAL TUBE, APPROX 200ML OUTPUT. PT REPOSITIONED W/ PILLOWS AND WEDGES Q2HRS. MEPILEX TO SACRUM. PEG TUBE INSERTION SITE CLEANED W/ WOUND CLEANSER, NEW DRESSING APPLIED. TUBE FEEDING RUNNING AT GOAL RATE OF 20ML/HR, PT TOLERATING WELL. FAMILY AT BEDSIDE T/O DAY. BED IN LOWEST, LOCKED POSITION. BILATERAL UPPER WRIST RESTRAINTS IN PLACE FOR PT SAFETY. PLAN OF CARE ONGOING.
[2025-07-20] MEDS ORDERED: FIBER PT SCH (21:00)
[2025-07-20] MEDS ORDERED: BANANA FLAKES PT SCH (21:00)
[2025-07-20] MEDS ORDERED: Banana Flakes/Tos 1 EA Powder Pack PT SCH (21:00)
[2025-07-20] MEDS ORDERED: [UNRECOGNIZED DRUG - OTHER] PT SCH (21:00)
[2025-07-21] VITALS (54 sets, daily range): BP systolic 75–120; BP diastolic 46–91
[2025-07-21 03:19] LABS: Hematocrit 28.6 % (33.0-51.0); Hemoglobin 9.4 g/dL (11.5-16.0); Mean Corpuscular HGB Conc 32.9 g/dL (31.5-36.5); Mean Corpuscular Volume 104 fL (80-100); NRBC ABSOLUTE 0.05 K/mm3 (0.00-0.02); NRBC Auto 0.7 /100 WBC (0.0-0.2); Platelet Count 75 K/mm3 (150-400); RDW Coefficient Variation 24.6 % (11.7-14.2); RDW Standard Deviation 89.2 fL (35.1-46.3)
[2025-07-21 03:34] LABS: Anion Gap 5.0 mmol/L (3-11); Blood Urea Nitrogen 36.0 mg/dL (8-24); CO2, Blood 31.0 mmol/L (21-32); Calcium, Blood 8.3 mg/dL (8.5-10.1); Chloride, Blood 107.0 mmol/L (98-108); Creatinine, Blood 0.54 mg/dL (0.40-1.00); Glucose, Blood 209.0 mg/dL (70-99); Magnesium, Blood 2.0 mg/dL (1.6-2.4); Potassium, Blood 3.4 mmol/L (3.5-5.5); Sodium, Blood 140.0 mmol/L (136-145)
--- NOTE | 2025-07-21 06:01 | NUR ---
SHIFT SUMMARY PT REMAINS SEDATED WITH PROPOFOL INFUSING INTO MEDIPORT @25MCG/KG/MIN TO RASS -3 PER MD ORDER. PT DOES NOT FOLLOW COMMANDS, GRIMACES WITH CARE, ARROSUABLE TO PAINFUL STIMULI. PT VENTILATED ON VC+ 16/450/10/45% FIO2 WITH SPO2 >95% AND TOLERATING WELL WITH OCASSIONAL COUGHING REQUIRING SUCTIONING. SBP IN THE 100'S WITH MAP >65 AND HR IN THE 80S NSR. PT HAS TUBE FEED INFUSING AT GOAL INTO LUQ PEG TUBE. TEMP RASHEED IN PLACE AND DRAINING TO GRAVITY, RECTAL TUBE IN PLACE AND DRAINING TO GRAVITY. MORNING LABS RESULTED IN POTASSIUM OF 3.4; PER MD, 40 MEQ OF KCL INFUSING NOW. FAMILY AT BEDSIDE OVERNIGHT. NO IMMEDIATE CONCERNS NOTED AT THIS TIME. WILL REPORT TO ONCOMING BELLA
[2025-07-21 08:46] LABS: Vancomycin, Trough 4.4 ug/mL (5.0-10.0)
[2025-07-21] MEDS ORDERED: Furosemide 10 MG / ML 2ML Vial IV SCH (10:00)
[2025-07-21] MEDS ORDERED: NS 100 ML IV ONE (10:38)
--- NOTE | 2025-07-21 11:11 | NUR ---
BRONCH DR MORATAYA AT BEDSIDE WITH RT EFREN FOR BRONCH. PT INTUBATED AND SEDATED WITH PROPOFOL GTT. 50 MCG FENTANYL IV GIVEN PER DR MORATAYA. 30 MG PROPOFOL IV PUSH GIVEN BY DR MORATAYA. RT MANAGING VENT. NO ACUTE EVENTS. PT RESTING QUIETLY AT THIS TIME.
--- NOTE | 2025-07-21 16:17 | NUR ---
ROUNDED ON PT THIS SHIFT. S/O NOT A BEDSIDE. PATIENT REMAINS INTUBATED AT THIS TIME.
--- NOTE | 2025-07-21 18:11 | NUR ---
SHIFT SUMMARY NO ACUTE CHANGES THIS SHIFT. PT REMAINS INTUBATED AND SEDATED. VENT SETTINGS UNCHANGED AT AC/VC 16, TV 450, PEEP 10, FI02 50%. PT WITH THICK, SANCHEZ/WHITE ETT SECRETIONS THIS SHIFT. DR MORATAYA PERFORMED BRONCH AT BEDSIDE WITH RT ASSITANCE THIS MORNING. PT REMAINS SEDATED WITH PROPOFOL AT 30 MCG/KG/MIN AND FENTANYL PRN PER EMAR. MEDIPORT TO RIGHT CHEST REMAINS C/D/I AND PG TO GENEVIEVE C/D/I WITH NS INFUSING TKO. PEG REMAINS IN PLACE WITH TF INFUSING AT GOAL RATE. RASHEED TEMP PROBE REMAINS IN PLACE WITH LARGE VOLUME OF YELLOW URINE OUTPUT NOTED. RECTAL TUBE REMAINS IN PLACE WITH LIQUID BROWN OUTPUT NOTED. VITAL SIGNS STABLE. SBW RESTRAINTS REMAIN IN PLACE. PT WITH MULTIPLE FAMILY MEMBERS AT BEDSIDE THROUGHOUT THE SHIFT. WILL CONTINUE TO MONITOR AND REPORT OFF TO ONCOMING RN.
[2025-07-22] VITALS (57 sets, daily range): BP systolic 80–127; BP diastolic 55–90
[2025-07-22] MEDS ORDERED: Insulin Human Lispro 100 Units/ML 3ML Syringe SC SCH (01:10)
[2025-07-22] MEDS ORDERED: Insulin Glargine-Yfgn 100 Unit/mL 3 ML SYR SC SCH (01:10)
[2025-07-22 05:28] LABS: BASOPHILS ABSOLUTE AUTO 0.03 K/mm3 (0.00-0.23); BASOPHILS PERCENT AUTO 0 % (0-2); EOSINOPHILS ABSOLUTE AUTO 0.15 K/mm3 (0.00-0.68); EOSINOPHILS PERCENT AUTO 2 % (0-6); Hematocrit 25.1 % (33.0-51.0); Hemoglobin 8.2 g/dL (11.5-16.0); IMMATURE GRAN ABSOLUTE AUTO 0.12 K/mm3 (0.00-0.10); IMMATURE GRAN PERCENT AUTO 2 % (0-1); LYMPHOCYTES ABSOLUTE AUTO 0.44 K/mm3 (0.84-5.20); LYMPHOCYTES PERCENT AUTO 6 % (21-46); MONOCYTES ABSOLUTE AUTO 0.71 K/mm3 (0.16-1.47); MONOCYTES PERCENT AUTO 9 % (4-13); Mean Corpuscular HGB Conc 32.7 g/dL (31.5-36.5); Mean Corpuscular Volume 106 fL (80-100); NEUTROPHILS ABSOLUTE AUTO 6.34 K/mm3 (1.96-9.15); NEUTROPHILS PERCENT AUTO 82 % (41-73); NRBC ABSOLUTE 0.00 K/mm3 (0.00-0.02); NRBC Auto 0.0 /100 WBC (0.0-0.2); Platelet Count 85 K/mm3 (150-400); RDW Coefficient Variation 24.0 % (11.7-14.2); RDW Standard Deviation 92.2 fL (35.1-46.3)
[2025-07-22 05:47] LABS: Anion Gap 6.0 mmol/L (3-11); Blood Urea Nitrogen 41.0 mg/dL (8-24); CO2, Blood 32.0 mmol/L (21-32); Calcium, Blood 8.8 mg/dL (8.5-10.1); Chloride, Blood 105.0 mmol/L (98-108); Creatinine, Blood 0.48 mg/dL (0.40-1.00); Glucose, Blood 272.0 mg/dL (70-99); Magnesium, Blood 1.8 mg/dL (1.6-2.4); Phosphorus, Blood 2.4 mg/dL (2.5-4.9); Potassium, Blood 3.3 mmol/L (3.5-5.5); Sodium, Blood 140.0 mmol/L (136-145)
[2025-07-22] MEDS ORDERED: Potassium Phosphate Dibasic 20 MM in Dextrose 5% 500 ML IV ONE (06:05)
--- NOTE | 2025-07-22 06:23 | NUR ---
SHIFT SUMMARY NO ACUTE CHANGES DURING NOC. REMAINS INTUBATED. VENT SETTINGS UNCHANGED- AC/VC 16/450/10/50%. SUCTIONED MODERATE AMOUNTS OF THICK WHITE SPUTUM AT TIMES. SEDATED WITH PROPOFOL AT 30MCG/KG/MIN. WITHDRAWS EXTREMITIES TO NOXIOUS STIMULI. DOES NOT FOLLOW ANY COMMANDS. RESTLESSNESS NOTED WHEN SEDATION DECREASED. BILATERAL SOFT WRIST RESTRAINTS IN PLACE TO PREVENT SELF-EXTUBATION. MONITOR SHOWS NSR, RATE 80s-90s. BP STABLE WITH MAP >65. AFEBRILE. VITAL HIGH PROTEIN AT 20MLs/HR PER PEG TUBE. 30MLS H20 FLUSH Q4. RECTAL TUBE IN PLACE WITH LIQUID BROWN STOOL. RASHEED PATENT AND DRAINING TO GRAVITY. GENEVIEVE POWERGLIDE AND RIGHT CHEST MEDIPORT PATENT WITH FOREIGN C/D/I. SCDs AND VIVIANA CORRIGAN TO BLEs. FAMILY AT BEDSIDE T/O NOC. WILL REPORT TO ONCOMING RN WHEN AVAILABLE.
--- NOTE | 2025-07-22 19:15 | NUR ---
ASSUMED CARE. PT RECEIVED IN BED. TOLERATING VENTILATOR AT AC 16, TV 450, PEEP FIO2 50%. PROPOFOL AT 35 MICS. F/C PATENT. RECTAL TUBE IS LEAKING LIQUID BROWN STOOL AROUND TUBE AND REPOSTIONED AND CLEANED.COCCYX, LABIA, AND PERINEUM REMAIN REDDENED, FRAGILE, AND SMALL OPENA REAS ON LABIA. TOLERATING TUBE FEEDING AT 20CC THRU GTUBE. fAMUILY AT BEDSIDE.
[2025-07-23] VITALS (24 sets, daily range): BP systolic 92–127; BP diastolic 65–94
[2025-07-23 05:12] LABS: BASOPHILS ABSOLUTE AUTO 0.02 K/mm3 (0.00-0.23); BASOPHILS PERCENT AUTO 0 % (0-2); EOSINOPHILS ABSOLUTE AUTO 0.28 K/mm3 (0.00-0.68); EOSINOPHILS PERCENT AUTO 3 % (0-6); Hematocrit 26.2 % (33.0-51.0); Hemoglobin 8.7 g/dL (11.5-16.0); IMMATURE GRAN ABSOLUTE AUTO 0.10 K/mm3 (0.00-0.10); IMMATURE GRAN PERCENT AUTO 1 % (0-1); LYMPHOCYTES ABSOLUTE AUTO 0.57 K/mm3 (0.84-5.20); LYMPHOCYTES PERCENT AUTO 6 % (21-46); MONOCYTES ABSOLUTE AUTO 0.81 K/mm3 (0.16-1.47); MONOCYTES PERCENT AUTO 9 % (4-13); Mean Corpuscular HGB Conc 33.2 g/dL (31.5-36.5); Mean Corpuscular Volume 107 fL (80-100); NEUTROPHILS ABSOLUTE AUTO 7.50 K/mm3 (1.96-9.15); NEUTROPHILS PERCENT AUTO 81 % (41-73); NRBC ABSOLUTE 0.02 K/mm3 (0.00-0.02); NRBC Auto 0.2 /100 WBC (0.0-0.2); Platelet Count 95 K/mm3 (150-400); RDW Coefficient Variation 23.8 % (11.7-14.2); RDW Standard Deviation 92.1 fL (35.1-46.3)
[2025-07-23 05:36] LABS: Alanine Aminotransfer (ALT/SGP 53.0 U/L (12-78); Albumin, Blood 1.6 g/dL (3.4-5.0); Albumin/Globulin Ratio 0.4 (0.8-1.8); Anion Gap 6.0 mmol/L (3-11); Aspartate Aminotrans (AST/SGOT 90.0 U/L (12-37); Bilirubin, Direct 1.2 mg/dL (0.0-0.3); Bilirubin, Indirect 0.6 mg/dL (0.1-0.7); Bilirubin, Total 1.8 mg/dL (0.1-1.0); Blood Urea Nitrogen 40.0 mg/dL (8-24); CO2, Blood 32.0 mmol/L (21-32); Calcium, Blood 8.8 mg/dL (8.5-10.1); Chloride, Blood 106.0 mmol/L (98-108); Creatinine, Blood 0.49 mg/dL (0.40-1.00); Globulin, Blood 4.4 g/dL (2.2-4.0); Glucose, Blood 249.0 mg/dL (70-99); Magnesium, Blood 1.9 mg/dL (1.6-2.4); Phosphorus, Blood 2.2 mg/dL (2.5-4.9); Potassium, Blood 3.2 mmol/L (3.5-5.5); Sodium, Blood 141.0 mmol/L (136-145); Total Protein, Blood 6.0 g/dL (6.4-8.2)
[2025-07-23] MEDS ORDERED: Potassium Phosphate Dibasic 30 MM IV SCH (06:10)
--- NOTE | 2025-07-23 06:10 | NUR ---
END OF SHIFT. PT TOLERATING VENTILATOR AT AC 16 TV 450, PEEP 14, FIO2 50. PT RESPONDS TO PAIN. PT TOLERATING TUBE FEEDING. F/C AND FECAL MANAGEMENT SYSTEM IN PLACE. PROPOFOL AT 35 MICS. REPOSITIONED Q 2 HR. FAMILY STAYING AT BEDSIDE.SIGNIFICANT OTHER BELIEVES THAT SHE WILL BE ABLE TO TAKE PATIENT HOME NEXT WEEK. EDUCATION GIVEN ON VENTILATOR AND RESPIRATORY DISTRESS.
--- NOTE | 2025-07-23 07:00 | NUR ---
ASSUMED CARE OF PATIENT AT APPROXIMATELY 0700. REPORT RECEIVED FROM OLIVA BLANCO AND GREGORY RN. PT INTUBATED AND SEDATED c PROPOFOL INFUSING AT 40. O2 SATURATIONS > 90%. CONTINUOUS CARDIAC MONITORING IN PLACE. RECTAL TUBE, RASHEED, AND PEG TUBE IN PLACE. SO AT BEDSIDE. SEE SHIFT ASSESSMENT FOR FULL DETAILS.
[2025-07-23] MEDS ORDERED: Potassium Phosphate Dibasic 30 MM in Dextrose 5% 500 ML IV ONE (07:30)
--- NOTE | 2025-07-23 09:00 | NUR ---
ASSUMED CARE OF PATIENT AT APPROXIMATELY 0700. BEDSIDE REPORT RECEIVED FROM OLIVA RN AND GREGORY RN. PT INTUBATED AND SEDATED c PROPOFOL AT 40 AND PRECEDEX AT 1.4. O2 SATURATIONS > 92%. CONTINUOUS CARDIAC MONITORING IN PLACE. RASHEED PATENT. SODIUM BICARB INFUSING. DAUGHTER UPDATED VIA PHONE CALL THIS AM. SEE SHIFT ASSESSMENT FOR FULL DETAILS.
[2025-07-23] MEDS ORDERED: Cetylpyridinium Chloride 1 EA MISC MT SCH (09:33)
[2025-07-23] MEDS ORDERED: Ipratropium/Albuterol SulF 2.5-0.5MG/3 ML Amp INH SCH (11:25)
[2025-07-23] MEDS ORDERED: Albuterol 2.5 MG/3 ML VIAL INH PRN (11:30)
--- NOTE | 2025-07-23 16:20 | NUR ---
Spiritual care visit conducted. Ruthy (pt) is intubated and joined at bedside by spouse Maya and their daughter. Maya expresses emotional distress in the form of tears and is conflicted about her decision to have pt intubated rather than taken home at that point. Maya recgonizes that pt was not ready to pass away and is hopeful to have an opportunity to say final goodbyes in the coming week. Provided non-judgemental space to conduct a life review with Maya who described at length pt's adverse life experiences. The concept of "found family" is an everpresent theme during the discussion. Maya is engaged in the discussion and appears to be more relaxed. She mentions concerns about formalities involving end of life, with regard to the pt not having any family and Maya having to make important decisions without having all of the necessary paper work. Examined sources of meaning and connection in [place], given pt and Maya's experience as people that identify with the LGBTQIA+ population. She describeds frustrations on a community level but on an individual level has experienced deep connection. When asked, she feels that the hospital staff has provided excellent and non-discriminatory care.
--- NOTE | 2025-07-23 17:59 | NUR ---
SHIFT SUMMARY PT REMAINED INTUBATED AND SEDATED T/O SHIFT, PROPOFOL CURRENTLY INFUSING AT 35. VENT SETTINGS TITRATED PER RT, SEE NOTES. CONTINOUS CARDIAC MONITORING SHOWS SR, BP STABLE c MAP > 65. CPT STARTED THIS SHIFT. RASHEED PATENT AND DRAINING TO GRAVITY. RECTAL TUBE IN PLACE c MINIMAL OUTPUT THIS SHIFT. TF INFUSING AT GOAL RATE. FAMILY AT BEDSIDE T/O SHIFT, UPDATED ON PLAN OF CARE.
--- NOTE | 2025-07-23 21:23 | NUR ---
START OF SHIFT SUMMARY: PATIENT REMAINS INTUBATED/SEDATED. NOTE PATIENT HAS AN #8 TUBE AND AT START OF SHIFT NOTE TUBE IS AT 21 AT THE GUMS. PER CHARTING TUBE TO BE AT 23 AT THE UPPER GUMS. RESPIRATORY AT BEDISDE AND AWARE. LUNGS SOUNDS COARSE. FREQUENT COUGH NOTED. REMAINS WITH BILATERAL UPPER EXTREMITIES RESTRAINED AND ELEVATED ON PILLOWS X4. PATIENT ON LEFT SIDE TURNED. +[address] TO X[address] EXT[address] ON THE MONTIOR 105. VENT SETTINGS: AC/VC: 28/325/50%/14. ON PROPOFOL FOR SEDATION INFUSING TO PATIENT RIGHT SIDE CHEST MEDIPORT. POWERGLIDE TO RIGHT UPPER ARM SL. TUBE FEEDING TO PEG TUBE INFUSING: VITAL HIGH PROTEIN @ GOAL RATE OF 20 CC/HR WITH 30 CC WATER FLUSH Q4. RASHEED TO GRAVITY AND FLEXI TO GRAVITY. PATIENT FAMILY AT BEDSIDE AND UPDATED ON CURRENT SHOP TECH PLAN. SAFETY INTACT
[2025-07-24] VITALS (23 sets, daily range): BP systolic 80–115; BP diastolic 53–96
[2025-07-24 03:53] LABS: BASOPHILS ABSOLUTE AUTO 0.04 K/mm3 (0.00-0.23); BASOPHILS PERCENT AUTO 0 % (0-2); EOSINOPHILS ABSOLUTE AUTO 0.26 K/mm3 (0.00-0.68); EOSINOPHILS PERCENT AUTO 2 % (0-6); Hematocrit 25.6 % (33.0-51.0); Hemoglobin 8.2 g/dL (11.5-16.0); IMMATURE GRAN ABSOLUTE AUTO 0.09 K/mm3 (0.00-0.10); IMMATURE GRAN PERCENT AUTO 1 % (0-1); LYMPHOCYTES ABSOLUTE AUTO 0.65 K/mm3 (0.84-5.20); LYMPHOCYTES PERCENT AUTO 6 % (21-46); MONOCYTES ABSOLUTE AUTO 1.01 K/mm3 (0.16-1.47); MONOCYTES PERCENT AUTO 9 % (4-13); Mean Corpuscular HGB Conc 32.0 g/dL (31.5-36.5); Mean Corpuscular Volume 108 fL (80-100); NEUTROPHILS ABSOLUTE AUTO 9.33 K/mm3 (1.96-9.15); NEUTROPHILS PERCENT AUTO 82 % (41-73); NRBC ABSOLUTE 0.00 K/mm3 (0.00-0.02); NRBC Auto 0.0 /100 WBC (0.0-0.2); Platelet Count 103 K/mm3 (150-400); RDW Coefficient Variation 23.5 % (11.7-14.2); RDW Standard Deviation 93.4 fL (35.1-46.3)
[2025-07-24 04:43] LABS: Alanine Aminotransfer (ALT/SGP 53.0 U/L (12-78); Albumin, Blood 1.5 g/dL (3.4-5.0); Albumin/Globulin Ratio 0.3 (0.8-1.8); Anion Gap 8.0 mmol/L (3-11); Aspartate Aminotrans (AST/SGOT 87.0 U/L (12-37); Bilirubin, Total 1.9 mg/dL (0.1-1.0); Blood Urea Nitrogen 37.0 mg/dL (8-24); CO2, Blood 30.0 mmol/L (21-32); Calcium, Blood 8.2 mg/dL (8.5-10.1); Chloride, Blood 105.0 mmol/L (98-108); Creatinine, Blood 0.43 mg/dL (0.40-1.00); Globulin, Blood 4.5 g/dL (2.2-4.0); Glucose, Blood 263.0 mg/dL (70-99); Magnesium, Blood 1.8 mg/dL (1.6-2.4); Phosphorus, Blood 2.3 mg/dL (2.5-4.9); Potassium, Blood 3.2 mmol/L (3.5-5.5); Sodium, Blood 140.0 mmol/L (136-145); Total Protein, Blood 6.0 g/dL (6.4-8.2)
--- NOTE | 2025-07-24 06:27 | NUR ---
CALENDERING MACHINE OPERATOR SUMMARY: PATIENT REMAINS INTUBATED/SEDATED. RASS -3. WITHDRAWS TO PAIN TO X4 EXTREMITIES. FOLLOWS NO VERBAL COMMANDS. NSR/ST THIS SHIFT. BP WITH MAP >65. +3/+4 EDEMA NOTED TO X4 EXTREMITIES. 24 @ LIP (23 @ UPPER GUMS). AC/VC/ 28/325/50%/4. LUNG SOUNDS COARSE THROUGHOUT AND DIMINISHED IN LOWER LOBES. FREQUENT SUCTION NEEDED. GAG/COUGH PRESENT. RECTAL TUBE TO GRAVITY WITH 0 OUTPUT NOTED THIS SHIFT. PEG TUBE WITH VITAL HIGH PROTEIN @ 20 CC/HR WITH 30 CC FLUSH Q4. TOLERATING AT THIS TIME. RASHEED TO GRAVITY. NOTE ALEC AREA MOIST WITH REDNESS AND WHAT APPEARS TO BE YEAST. AREA CLEANED, POWEDER PLACED TO SITE AND SILVER WICKING CLOTH. Q6 BLOOD GLUCOSE MONITORED. CONTINUES ON PROPOFOL CONTINUES AT RATE 35 MCG/KG/HR. PATIENT FAMILY AT BEDSIDE, UPDATED ON CURRENT PLAN OF CARE. SAFETY AND COMFORT MAINTAINED.
[2025-07-24] MEDS ORDERED: Potassium Phosphate Dibasic 30 MM in Dextrose 5% 500 ML IV STA (07:44)
[2025-07-24] MEDS ORDERED: Insulin Regular 100 UNIT/ML 10ML Vial SC SCH (18:00)
--- NOTE | 2025-07-24 19:20 | NUR ---
START OF TEACHER OF FAMILY AND CONSUMER SCIENCE SUMMARY: PT. REMIANS INTUBATED (AC/VC 20/325/40%/12 WITH ETT TUBE 23 @ UPPER GUMS/ 24 AT THE UPPER LIP) AND SEDATED (PROPOFOL 35 MCG/KG/MIN. CONTINUES WITH POWERGLIDE AND MEDIPORT FOR ACCESS. BEDREST. ST WITH HR 101 AND REGULAR AT THIS TIME. BP WITH MAP > 65. RASHEED TO GRAVITY AND FLEXI TO GRAVITY. TUBE FEED (VITAL HIGH PROTEIN @ 20 CC/HR WITH 30 CC FLUSH Q4) TO PEG TUBE TO LEFT UPPER QUADRANT. PATIENT SPOUSE AT BEDSIDE AND VOICES NO CONCERNS AT THIS TIME. PATIENT TURNED TO LEFT SIDE. PT. APPEARS COMFORTABLE WITH NO S/S OF DISTRESS. SAFETY MAINTAINED. CONTINUING WITH CURRENT PLAN OF CARE.
[2025-07-25] VITALS (22 sets, daily range): BP systolic 86–120; BP diastolic 58–84
[2025-07-25 04:17] LABS: pH Blood Venous 7.52 (7.34-7.37)
[2025-07-25 04:21] LABS: BASOPHILS ABSOLUTE AUTO 0.03 K/mm3 (0.00-0.23); BASOPHILS PERCENT AUTO 0 % (0-2); EOSINOPHILS ABSOLUTE AUTO 0.37 K/mm3 (0.00-0.68); EOSINOPHILS PERCENT AUTO 4 % (0-6); Hematocrit 23.1 % (33.0-51.0); Hemoglobin 7.7 g/dL (11.5-16.0); IMMATURE GRAN ABSOLUTE AUTO 0.06 K/mm3 (0.00-0.10); IMMATURE GRAN PERCENT AUTO 1 % (0-1); LYMPHOCYTES ABSOLUTE AUTO 0.57 K/mm3 (0.84-5.20); LYMPHOCYTES PERCENT AUTO 6 % (21-46); MONOCYTES ABSOLUTE AUTO 0.85 K/mm3 (0.16-1.47); MONOCYTES PERCENT AUTO 9 % (4-13); Mean Corpuscular HGB Conc 33.3 g/dL (31.5-36.5); Mean Corpuscular Volume 109 fL (80-100); NEUTROPHILS ABSOLUTE AUTO 7.19 K/mm3 (1.96-9.15); NEUTROPHILS PERCENT AUTO 79 % (41-73); NRBC ABSOLUTE 0.00 K/mm3 (0.00-0.02); NRBC Auto 0.0 /100 WBC (0.0-0.2); Platelet Count 105 K/mm3 (150-400); RDW Coefficient Variation 23.5 % (11.7-14.2); RDW Standard Deviation 93.4 fL (35.1-46.3)
[2025-07-25 05:47] LABS: Anion Gap 7.0 mmol/L (3-11); Blood Urea Nitrogen 31.0 mg/dL (8-24); CO2, Blood 31.0 mmol/L (21-32); Calcium, Blood 8.2 mg/dL (8.5-10.1); Chloride, Blood 106.0 mmol/L (98-108); Creatinine, Blood 0.45 mg/dL (0.40-1.00); Glucose, Blood 182.0 mg/dL (70-99); Magnesium, Blood 1.9 mg/dL (1.6-2.4); Phosphorus, Blood 2.4 mg/dL (2.5-4.9); Potassium, Blood 3.0 mmol/L (3.5-5.5); Sodium, Blood 141.0 mmol/L (136-145)
[2025-07-25] MEDS ORDERED: Potassium Phosphate Dibasic 30 MM in Dextrose 5% 500 ML IV STA (07:28)
[2025-07-25] MEDS ORDERED: LORazepam 2 MG/ML 1ML Injection IV PRN (10:10)
[2025-07-25] MEDS ORDERED: Potassium Chl 20MEQ/Water100ML 100 ML IV SCH (13:45)
[2025-07-25] MEDS ORDERED: Potassium Phosphate Dibasic 20 MM in Dextrose 5% 500 ML IV SCH (15:45)
[2025-07-25] MEDS ORDERED: Furosemide 10 MG / ML 2ML Vial IV SCH (18:00)
--- NOTE | 2025-07-25 19:19 | NUR ---
SHIFT SUMMARY NEURO: SPONTANEOUS AWAKENING TRIAL. PROPOFOL OFF OF 1430. RASS -3, OPENING EYES TO VERBAL STIMULI +COUGH, GAG AND SWALLOW. NOT FOLLOWING COMMANDS AT THIS TIME. CARDIAC: SINUS TACH, HR 100-110S. PULM: COARSE, RHONCHI IN AM, RESOLVED NOW CLEAR DIM WITH OCCASINAL WHEEZING. +COPIOUS THICK WHITE SECREATIONS. ALSO HAS SIGNIFICANT ORAL SECREATIONS. VENT SETTINGS 20/380/5/50. SPO2 90-99% TODAY ON CURRENT SETTINGS. GI: ABDOMEN IS SOFT, NORMOACTIVE BOWEL TONES. NO MEASURABLE OUTPUT IN RECTAL TUBE TODAY. TUBE FEEDS ON GOING. : RASHEED DRAINING TO GRAVITY. STRAW YELLOW URINE. SKIN: NO CHANGES. SEE CHART FOR PHOTOS. AT BEDSIDE ALL DAY. APPOX 60-90 MIN IN EDUCATION PROIVDE ON SPONTANEOUS AWAKENING TRIAL AND DISCUSSING PLAN OF CARE.
--- NOTE | 2025-07-25 19:24 | NUR ---
START OF SHIFT SUMMARY: PATIENT INTUBATED (AC/VC 20/325/50%/12 WITH EET TUBE 23 @ UPPER GUMS) W/O SEDATION. APPEARS COMFORTABLE. BILATERAL WRIST RESTRAINTS IN PLACE. RASHEED TO GRAVITY AND DRAINING YELLOW URINE. FLEXI TO GRAVITY. SPOUSE AT BEDSIDE W/O VERBAL CONCERNS AT THIS TIME. ST 118 ON MONITOR. BP WITH MAP >65. PEG TUBE INFUSING VITAL HIGH PROTEIN @ GOAL RATE OF 20 CC/HR WITH 30 CC FLUSH Q4. MEDIPORT IN PLACE TO RIGHT CHEST WALL AND POWERGLIDE TO RIGHT UPPER ARM. BOTH WITH BLOOD RETURN NOTED AT THIS TIME. NO S/S OF DISTRESS ORD DISCOMFORT AT THIS TIME. CONTINUING WITH CURRENT PLAN OF CARE.
[2025-07-26] VITALS (24 sets, daily range): BP systolic 81–123; BP diastolic 56–84
[2025-07-26 04:51] LABS: BASOPHILS ABSOLUTE AUTO 0.04 K/mm3 (0.00-0.23); BASOPHILS PERCENT AUTO 1 % (0-2); EOSINOPHILS ABSOLUTE AUTO 0.24 K/mm3 (0.00-0.68); EOSINOPHILS PERCENT AUTO 3 % (0-6); Hematocrit 26.2 % (33.0-51.0); Hemoglobin 8.4 g/dL (11.5-16.0); IMMATURE GRAN ABSOLUTE AUTO 0.08 K/mm3 (0.00-0.10); IMMATURE GRAN PERCENT AUTO 1 % (0-1); LYMPHOCYTES ABSOLUTE AUTO 0.47 K/mm3 (0.84-5.20); LYMPHOCYTES PERCENT AUTO 6 % (21-46); MONOCYTES ABSOLUTE AUTO 0.94 K/mm3 (0.16-1.47); MONOCYTES PERCENT AUTO 11 % (4-13); Mean Corpuscular HGB Conc 32.1 g/dL (31.5-36.5); Mean Corpuscular Volume 110 fL (80-100); NEUTROPHILS ABSOLUTE AUTO 6.79 K/mm3 (1.96-9.15); NEUTROPHILS PERCENT AUTO 79 % (41-73); NRBC ABSOLUTE 0.00 K/mm3 (0.00-0.02); NRBC Auto 0.0 /100 WBC (0.0-0.2); Platelet Count 120 K/mm3 (150-400); RDW Coefficient Variation 23.6 % (11.7-14.2); RDW Standard Deviation 94.6 fL (35.1-46.3)
[2025-07-26 04:57] LABS: pH Blood Venous 7.48 (7.34-7.37)
[2025-07-26 05:21] LABS: Anion Gap 7.0 mmol/L (3-11); Blood Urea Nitrogen 27.0 mg/dL (8-24); CO2, Blood 30.0 mmol/L (21-32); Calcium, Blood 8.1 mg/dL (8.5-10.1); Chloride, Blood 107.0 mmol/L (98-108); Creatinine, Blood 0.37 mg/dL (0.40-1.00); Glucose, Blood 205.0 mg/dL (70-99); Magnesium, Blood 2.0 mg/dL (1.6-2.4); Phosphorus, Blood 2.3 mg/dL (2.5-4.9); Potassium, Blood 2.9 mmol/L (3.5-5.5); Sodium, Blood 141.0 mmol/L (136-145)
--- NOTE | 2025-07-26 06:18 | NUR ---
END OF SHIFT SUMMARY: PATIENT REMAINS INTUBATED (AC/VC 20/325/50%/12 WITH ETT TUBE 23 @ GUMS), PATIENT TRHOUGHOUT THE NIGHT FREQUENTLY BREATHING OVER THE RATE 36-44 BREATHS PER MINUTE, AND WITH INCREASED TV. PATIENT IS OCCASIONALLY SPONTANIOUSLY OPENING EYES BUT NOT FOLLOWING COMMANDS OR TRACKING/LOOKING AT NURSE. ATIVAN/FENTANYL ADMINISTERED ORDERED. CALLED DR. NORMAN TO INQUIRE ABOUT THE POSSIBILITY OF CHANGING VENT SETTINGS TO PROMOTE VENT COMPLIANCE. NO NEW ORDERS AT THIS TIME. ST THROUGHOUT SHIFT WITH HIGHESTT HR 119. BP WITH MAP > 65. RECTAL TUBE TO GRAIVITY. PEG TUBE WITH VITAL HIGH PROTEIN @ 20 CC/HR WITH 30 CC FLUSH Q4. RASHEED TO GRAVITY. WOUND CARE PROVIDED TO ALL WOUNDS AND NOTE WOUNDS IMPROVING. BLOOD GLUCOSE MONTIORED. PATIENT SPOUSE AND DAUGHTER AT BEDSIDE AND UPDATED ON CURRENT CARE. SAFETY AND COMFORT MAINTAINED.
[2025-07-26] MEDS ORDERED: Potassium Phosphate Dibasic 30 MM in Dextrose 5% 500 ML IV STA (07:14)
--- NOTE | 2025-07-26 09:36 | NUR ---
ASSUMPTION OF CARE RECEIVED REPORT FROM [facility] NURSE. PT IS INTUBATED AND SEDATED. VENT SETTINGS AC/VC 20/325/12/50% FIO2 WITH SPO2 >92%. PROP ON SB. PT NOT OPENING EYES, FOLLOWING COMMANDS, OR MAKING PURPOSEFUL MOVEMENT. PT GRIMACES WITH ORAL CARE. PT IN NSR WITH HR IN 100-110S, MAP >65 WITH SBP IN 86-90S. PT HAS RASHEED CATH AND RECTAL TUBE, BOTH PATENT AND DRAINING TO GRAVITY. PT HAS PEG TUBE IN PLACE WITH TUBE FEEDINGS BEING INFUSED. PT +3 EDEMA IN BLE. FAMILY AT BEDSIDE. NO NEEDS NOTED AT THIS TIME.
--- NOTE | 2025-07-26 15:40 | NUR ---
ATTEMPTED TO MEET WITH PT'S AND ELDEST DAUGHTER AT BEDSIDE, BUT THEY APPEAR TO SLEEPING, AND ACCORDING TO THE BEDSIDE RN, THEY HAVE BEEN SPENDING A SIGNIFICANT AMOUNT OF TIME HERE, AND ARE "BEGINNING TO WEAR OUT.' PT IS OFF SEDATION OF YESTERDAY.
--- NOTE | 2025-07-26 16:39 | NUR ---
MET WITH PT'S AMARA. SHE IS TEARFUL AT TODAY'S VISIT. SHE STATED, "I DON'T KNOW WHAT TO DO" SEVERAL TIMES. WE DISCUSSED CURRENT PLAN OF CARE, AND WHAT PATIENT WOULD WANT. AMARA ASKED IF WE COULD WAIT UNTIL AFTER HEIKE, SPECIFICALLY THE DAY AFTER HEIKE. DISCUSSED WITH DR. SOTO, HE IS ONBOARD WITH THIS PLAN. WILL DISCUSS WITH FITNESS PROFESSIONAL TOMORROW.
[2025-07-26 16:57] LABS: Magnesium, Blood 1.8 mg/dL (1.6-2.4); Phosphorus, Blood 3.1 mg/dL (2.5-4.9); Potassium, Blood 2.8 mmol/L (3.5-5.5)
--- NOTE | 2025-07-26 18:38 | NUR ---
SHIFT SUMMARY PT INTUBATED, VENT SETTINGS 20/325/12/50% FIO2 WITH SPO2 >88%. PT HAS COUGHING EPISODES AND IS ASYNCHRONOUS WITH VENT, SPO2 88-90%. PROP ON SB, PRN FENTANYL GIVEN ONCE. PT IS NOT OPENING EYES, FOLLOWING COMMANDS, OR MAKING PURPOSEFUL MOVEMENT. RESTRAINTS DC'D AT 1400. PT IN NSR, HR IN 100-110S, AND MAP >65 WITH SBP IN 80-100S. PT HAS PEG TUBE IN RUQ, INFUSING AT GOAL RATE OF 20ML/HR. RASHEED CATH AND RECTAL TUBE IN PLACE, PATENT AND DRAINING TO GRAVITY. PT +3 EDEMA IN ALL EXTREMITIES AND GENERALIZED EDEMA. PT HAS RIGHT PORT AND GENEVIEVE POWERGLIDE, WNL. AND DAUGHTER AT BEDSIDE. DISCUSSED PLAN OF CARE WITH PALLIATIVE CARE TEAM. CALL LIGHT WITHIN REACH WITH NO NEEDS NOTED AT THIS TIME.
--- NOTE | 2025-07-26 19:15 | NUR ---
ASSUMED CARE. PATIENT UNRESPONSIVE EXCEPT FOR FACIAL GRIMACE. PT DOES NOT WITHDRAW FROM PAIN ON ANY EXTREMITY. PUPILS 2 AND SLUGGISH. SUCTIONED SMALL AMOUNT OF THIN WHITE SECRETION FROM ETT. VENT SETTINGS AC 20.TV 325,PEEP 12, FIO2 50%. VITAL HP INFUSING AT GOAL OF 20/HR. FLUSH INFUSING AT 30CC Q 4 HRS. F/C AND RECTAL TUBE PATENT.ST 106-110. BP106/77. TEMP 101.3 AND TYLENOL 650 GIVEN.
--- NOTE | 2025-07-26 23:03 | NUR ---
R.T. ADJUSTED ETT BACK TO 23 CM. PT TOLERATED WELL. O2 SATURATION INCREASED TO 98%.
[2025-07-27] VITALS (80 sets, daily range): BP systolic 75–145; BP diastolic 51–97
--- NOTE | 2025-07-27 00:25 | NUR ---
PT ARRIVED VIA BED FROM PCU. INCONTINENT OF LARGE AMOUNT BLACK LIQUID. SBP 103/60. PT ALERT TO NAME AND DASTE OF ONLY. FECAL MANAGEMENT SYSTEM PLACE. PT BLADDER SCANNED 465 RESIDUAL. TEMP 96.7T.HR 60'S. PICTURES TAKEN OF COCCYX AND RT ELBOW AND PLACED IN CHART.
[2025-07-27 03:43] LABS: BASOPHILS ABSOLUTE AUTO 0.03 K/mm3 (0.00-0.23); BASOPHILS PERCENT AUTO 0 % (0-2); EOSINOPHILS ABSOLUTE AUTO 0.22 K/mm3 (0.00-0.68); EOSINOPHILS PERCENT AUTO 3 % (0-6); Hematocrit 24.2 % (33.0-51.0); Hemoglobin 7.8 g/dL (11.5-16.0); IMMATURE GRAN ABSOLUTE AUTO 0.06 K/mm3 (0.00-0.10); IMMATURE GRAN PERCENT AUTO 1 % (0-1); LYMPHOCYTES ABSOLUTE AUTO 0.36 K/mm3 (0.84-5.20); LYMPHOCYTES PERCENT AUTO 4 % (21-46); MONOCYTES ABSOLUTE AUTO 0.80 K/mm3 (0.16-1.47); MONOCYTES PERCENT AUTO 9 % (4-13); Mean Corpuscular HGB Conc 32.2 g/dL (31.5-36.5); Mean Corpuscular Volume 111 fL (80-100); NEUTROPHILS ABSOLUTE AUTO 7.05 K/mm3 (1.96-9.15); NEUTROPHILS PERCENT AUTO 83 % (41-73); NRBC ABSOLUTE 0.00 K/mm3 (0.00-0.02); NRBC Auto 0.0 /100 WBC (0.0-0.2); Platelet Count 122 K/mm3 (150-400); RDW Coefficient Variation 23.7 % (11.7-14.2); RDW Standard Deviation 94.2 fL (35.1-46.3)
[2025-07-27 03:53] LABS: pH Blood Venous 7.47 (7.34-7.37)
[2025-07-27 04:27] LABS: Alanine Aminotransfer (ALT/SGP 43.0 U/L (12-78); Albumin, Blood 1.5 g/dL (3.4-5.0); Albumin/Globulin Ratio 0.3 (0.8-1.8); Anion Gap 5.0 mmol/L (3-11); Aspartate Aminotrans (AST/SGOT 68.0 U/L (12-37); Bilirubin, Total 2.7 mg/dL (0.1-1.0); Blood Urea Nitrogen 32.0 mg/dL (8-24); CO2, Blood 32.0 mmol/L (21-32); Calcium, Blood 7.9 mg/dL (8.5-10.1); Chloride, Blood 109.0 mmol/L (98-108); Creatinine, Blood 0.48 mg/dL (0.40-1.00); Globulin, Blood 4.4 g/dL (2.2-4.0); Glucose, Blood 184.0 mg/dL (70-99); Magnesium, Blood 1.8 mg/dL (1.6-2.4); Phosphorus, Blood 2.4 mg/dL (2.5-4.9); Potassium, Blood 2.9 mmol/L (3.5-5.5); Sodium, Blood 143.0 mmol/L (136-145); Total Protein, Blood 5.9 g/dL (6.4-8.2)
--- NOTE | 2025-07-27 04:56 | NUR ---
DR. NORAMN NOTIFIED OF POTASSIUM 2.9, PHOS 2.4 AND VVG WITH PH 7.47. NEW ORDER
--- NOTE | 2025-07-27 06:46 | NUR ---
END OF SHIFT. PT UNRESPONSIVE EXCEPT FOR FACE GRIMACE AND MOVEMENT OF LT FOOT. PT MEDICATED FOR FACE GRAMACING AND INCREASED RESPIRATIONS TO 28-30 WITH FENTANYL 50 MICS X 2. ATIVAN GIVEN BEFORE BATH AND CARE BUT SPB AND MAP DECREASED BY 20 POINTS. COURSE LUNG SOUNDS ALL CHAVEZ. SR96 TO ST 110. PT HAD 101.3 TEMP AND TYLENOL GIVEN AND DECREASED TO 99. SIGNIFICANTOTHER AND DAUGHTER SPENT THE NIGHT.POTASSIUM 2.9, 40 MEQS POTASSIUM CHLORIDE INFUSING.
[2025-07-27] MEDS ORDERED: Potassium Phos/Sodium Phos 250 MG PACK PO SCH (08:30)
--- NOTE | 2025-07-27 09:25 | NUR ---
ASSUMPTION OF CARE RECEIVED REPORT FROM [facility] NURSE. PT IS INTUBATED AND SEDATED, VENT SETTINGS AC/VC+ 20/325/12/55% FIO2 WITH SPO2 >88%. PT HAS EPISODES OF COUGHING AND ASYNCHRONOUS WITH VENT. PT GRIMACES WITH ORAL CARE AND TACTILE STIMULI. PT IN NSR, HR IN 90-100S, AND MAP >65. PT HAS PEG TUBE IN LUQ, INFUSING TUBE FEEDINGS AT GOAL RATE. PT HAS RASHEED CATH AND RECTAL TUBE IN PLACE, PATENT AND DRAINING TO GRAVITY. PT +3 EDEMATOUS IN ALL EXTREMITIES AND GENERALIZED EDEMA. PT HAS GENEVIEVE POWERGLIDE AND PORT, WNL. AND DAUGHTER AT BEDSIDE, NO NEEDS NOTED AT THIS TIME.
[2025-07-27] MEDS ORDERED: Potassium Chl 20MEQ/Water100ML 100 ML IV SCH (09:30)
[2025-07-27] MEDS ORDERED: Cefepime HCl 2,000 MG in NS 100 ML IV SCH (12:00)
[2025-07-27] MEDS ORDERED: TPN Consult Notification XX ONE (12:30)
[2025-07-27 14:58] LABS: Influenza A/2009-H1 Not Detected (NOT DETECT); SARS-Cov-2 (COVID-19), BioFire Not Detected (NOT DETECT)
[2025-07-27 15:19] LABS: Acinetobacter baumannii DNA Not Detected copy/mL (NOT DETECT); Chlamydia pneumonia Not Detected (NOT DETECT); Enterobacter cloacae DNA Not Detected copy/mL (NOT DETECT); Escherichia coli DNA Not Detected copy/mL (NOT DETECT); Haemophilus influenzae DNA Not Detected copy/mL (NOT DETECT); Human Coronavirus RNA Not Detected (NOT DETECT); Human Metapneumovirus RNA Not Detected (NOT DETECT); Klebsiella aerogenes DNA Not Detected copy/mL (NOT DETECT); Klebsiella oxytoca DNA Not Detected copy/mL (NOT DETECT); Klebsiella pneumoniae DNA Not Detected copy/mL (NOT DETECT); Moraxella catarrhalis DNA Not Detected copy/mL (NOT DETECT); Proteus sp DNA Not Detected copy/mL (NOT DETECT); Pseudomonas aeruginosa DNA Not Detected copy/mL (NOT DETECT); Rhinovirus+Enterovirus RNA Detected (NOT DETECT); Serratia marcescens DNA Not Detected copy/mL (NOT DETECT); Staphylococcus aureus DNA Not Detected copy/mL (NOT DETECT); Streptococcus agalactiae DNA Not Detected copy/mL (NOT DETECT); Streptococcus pneumoniae DNA Not Detected copy/mL (NOT DETECT); Streptococcus pyogenes DNA Not Detected copy/mL (NOT DETECT)
[2025-07-27 15:20] LABS: Influenza virus A RNA Not Detected (NOT DETECT); Influenza virus B RNA Not Detected (NOT DETECT); Respiratory syncytial Vir RNA Not Detected (NOT DETECT)
[2025-07-27 17:25] LABS: Anion Gap 8.0 mmol/L (3-11); Blood Urea Nitrogen 37.0 mg/dL (8-24); CO2, Blood 29.0 mmol/L (21-32); Calcium, Blood 8.5 mg/dL (8.5-10.1); Chloride, Blood 109.0 mmol/L (98-108); Creatinine, Blood 0.53 mg/dL (0.40-1.00); Glucose, Blood 234.0 mg/dL (70-99); Magnesium, Blood 1.9 mg/dL (1.6-2.4); Phosphorus, Blood 2.2 mg/dL (2.5-4.9); Potassium, Blood 3.4 mmol/L (3.5-5.5); Sodium, Blood 143.0 mmol/L (136-145)
[2025-07-27] MEDS ORDERED: Potassium Phosphate Dibasic 30 MM in Dextrose 5% 500 ML IV ONE (17:35)
--- NOTE | 2025-07-27 18:21 | NUR ---
SHIFT SUMMARY PT INTUBATED AND OFF SEDATION AT ASSUMPTION OF CARE. PT INCREASED WORK OF BREATHING, TACHYPNEIC, AND SPO2 84-88%. VENT SETTINGS CHANGED TO AC/VC+ 20/325/12/100% FIO2, DECREASED TO AC/VC+ 20/325/12/90% FIO2. RESTARTED PROPOFOL, TITRATED TO 20. PT IN NSR, HR IN 110-120S AND MAP >65. PT DOES NOT MAKE PURPOSEFUL MOVEMENT OR FOLLOW COMMANDS. PT GRIMACES WITH TACTILE STIMULI AND ORAL CARE. RASHEED CATH AND RECTAL TUBE IN PLACE, PATENT AND DRAINING TO GRAVITY. PEG IN LUQ, INFUSING AT GOAL RATE. PT HAS GENEVIEVE POWERGLIDE AND MEDIPORT ACCESSED, WNL. +3 EDEMA IN ALL EXTREMITIES AND GENERALIZED EDEMA. FAMILY AT BEDSIDE, NO NEEDS NOTED AT THIS TIME.
--- NOTE | 2025-07-27 20:00 | NUR ---
ASSUMPTION OF CARE CARE OF PT ASSUMED FOLLOWING BEDSIDE SHIFT REPORT FROM DAY RN. PT INTUBATED, WITH SETTINGS ACVC 12/325/12.0/90%, AND SEDATED ON 20 MCG/KG/MIN OF PROPOFOL, AND UNRESPONSIVE. TEMP IS 98.8. SINUS TACH AT 114 AND MAP > 65. SECRETIONS FROM ETT MINIMAL, WHITE/YELLOW AND THICK; ORAL SECRETIONS THINNER AND MORE PREVALENT. AIR MOVEMENT APPRECIATED IN ALL ANTERIOR LUNG CHAVEZ. AB DISTENDED AND RECTAL TUBE IN PLACE WITH MINIMAL OUTPUT REPORTED ON DAY SHIFT. WILL MONITOR. TEMP RASHEED IN PLACE DRAINING KAYLYNN URINE TO GRAVITY. PT SKIN IN GROIN FOLDS AND AROUND ANUS IS INFLAMMED WITH DENUDED SKIN ALL ABOUT. WILL REVIEW AND CONTINUE PLAN OF CARE.
[2025-07-27] MEDS ORDERED: Insulin Glargine-Yfgn 100 Unit/mL 3 ML SYR SC SCH (21:00)
[2025-07-28] VITALS (51 sets, daily range): BP systolic 64–104; BP diastolic 31–72
[2025-07-28] MEDS ORDERED: LORazepam 2 MG/ML 1ML Injection IV PRN (00:30)
[2025-07-28] MEDS ORDERED: Bumetanide 0.25 MG/ML 10ML Vial IV SCH (00:50)
--- NOTE | 2025-07-28 01:20 | NUR ---
UPDATE: PT WORK OF BREATHING HAS INCREASED AND RR HAS BEEN 40-55 FOR MOS TOF SHIFT. PT INITIALLY RESPONDED WELL TO INCREASE IN PROPOFOL WITH A DECREASED RATE TO LOW/MID 30'S, BUT SHE EVENTUALLY "CAUGHT UP" TO THE INCREASED SEDATION AND THE RR ONCE AGAIN INCREASED TO LEVELS DIFFICULT TO SUSTAIN SHANK BONER. DR VILLANUEVA CALLED AND HE ASKED THAT PROPOFOL BE MAXED OUT AT DOSE OF 40 MCG/KG/MIN, ADD FENTANYL GTT, AND ADD LEVOPHED FOR BP THAT WAS DECREASING. SINCE PT'S HR ALREADY BORDERLINE TACHY, DR VILLANUEVA ASKED THAT IF THE HR INCREASED TOO MUCH FOLLOWING LEVOPHED TITRATION, TO D/C AND START PHENYLEPHRINE INSTEAD. ALSO LASIX D/C'D AND ORDER FOR BUMEX 1 MG BID, PLACED IN ITS STEAD.
[2025-07-28 04:55] LABS: Hematocrit 25.0 % (33.0-51.0); Hemoglobin 8.0 g/dL (11.5-16.0); Mean Corpuscular HGB Conc 32.0 g/dL (31.5-36.5); Mean Corpuscular Volume 112 fL (80-100); NRBC ABSOLUTE 0.00 K/mm3 (0.00-0.02); NRBC Auto 0.0 /100 WBC (0.0-0.2); Platelet Count 134 K/mm3 (150-400); RDW Coefficient Variation 23.3 % (11.7-14.2); RDW Standard Deviation 95.8 fL (35.1-46.3)
[2025-07-28 05:17] LABS: BAND PERCENT MAN 10 % (0-8); BASOPHILS ABSOLUTE MAN 0.00 K/mm3 (0.00-0.23); BASOPHILS PERCENT MAN 0 % (0-2); EOSINOPHILS ABSOLUTE MAN 0.00 K/mm3 (0.00-0.68); EOSINOPHILS PERCENT MAN 0 % (0-6); LYMPHOCYTES ABSOLUTE MAN 0.24 K/mm3 (0.84-5.20); LYMPHOCYTES PERCENT MAN 2 % (21-46); MONOCYTES ABSOLUTE MAN 1.23 K/mm3 (0.16-1.47); MONOCYTES PERCENT MAN 10 % (4-13); MYELOCYTE ABSOLUTE MAN 0.12 K/mm3 (0.00-0.00); MYELOCYTE PERCENT MAN 1 % (0-0); NEUTROPHILS ABSOLUTE MAN 10.70 K/mm3 (1.96-9.15); SEG NEUTROPHILS PERCENT MAN 77 % (41-73)
[2025-07-28 05:19] LABS: Alanine Aminotransfer (ALT/SGP 38.0 U/L (12-78); Albumin, Blood 1.6 g/dL (3.4-5.0); Albumin/Globulin Ratio 0.4 (0.8-1.8); Anion Gap 6.0 mmol/L (3-11); Aspartate Aminotrans (AST/SGOT 58.0 U/L (12-37); Bilirubin, Total 2.9 mg/dL (0.1-1.0); Blood Urea Nitrogen 38.0 mg/dL (8-24); CO2, Blood 30.0 mmol/L (21-32); Calcium, Blood 8.0 mg/dL (8.5-10.1); Chloride, Blood 108.0 mmol/L (98-108); Creatinine, Blood 0.51 mg/dL (0.40-1.00); Globulin, Blood 4.5 g/dL (2.2-4.0); Glucose, Blood 215.0 mg/dL (70-99); Magnesium, Blood 1.9 mg/dL (1.6-2.4); Phosphorus, Blood 3.7 mg/dL (2.5-4.9); Potassium, Blood 3.5 mmol/L (3.5-5.5); Sodium, Blood 140.0 mmol/L (136-145); Total Protein, Blood 6.1 g/dL (6.4-8.2)
--- NOTE | 2025-07-28 07:51 | NUR ---
UPDATE: FOLLOWING [facility] BM, AN IRREGULARITY WAS NOTED SURROUNDING THE ANUS IN A SYMMETRIC, CIRCUMFERENTIAL MANNER- AN OUTPUCHING OF MUCOSA.
[2025-07-28] MEDS ORDERED: Vancomycin (Pharmacy Consult) IV SCH (11:05)
[2025-07-28] MEDS ORDERED: Vancomycin HCL 2,500 MG in NS 500 ML IV ONE (11:20)
--- NOTE | 2025-07-28 16:56 | NUR ---
SHIFT SUMMARY NEURO: RESPONSIVE TO PAIN. SEDATED WITH PROPOFOL AND FENTANYL. RASS -4. +CORNEAL REFLEX, +GAG AND COUGH, NOT SWALLOWING. RESPONSIVE TO PAIN IN L FOOT ONLY. CARDIAC: SINUS TACH, SBP 80-120S. HR 100-110S. ON LEVOPHED TO MAINTAIN MAP >65. +EDEMA, BUE, BLE. PULM: CLEAR/DIM TO AUSCULATION. VENT ON ACVC SETTINGS UNCHANGED. 100% POST TURNS 30 MIN OR SO NOT TOLERATING TURNS WELL. +ORAL SECRETIONS AND SMALL AMOUNT OF WHITE THICK SECREATIONS FROM ETT. ASYNCHRONUS WITH VENT AT TIMES WITH BREATH STACKING. SEDATION INCREASED THIS AFTERNOON TO ACCOMODATE. O2 SATS INCREASED WITH L SIDE TURNS MAINTAINING O2 SATS >95% ON L SIDE, >88% ON R SIDE TURNS. GI: ABDOMEN IS SOFT, HYPOACTIVE BOWEL TONES. MINIMAL OUTPUT FROM RECTAL TUBE. OG TUBE IN PLACE AT 55CM. TUBE FEEDS VITAL HP AT GOAL. : RASHEED IN PLACE DRAINING YELLOW URINE TO GRAVITY SKIN: UPDATED PHOTOS IN CHART FAMILY AT BEDSIDE TODAY, DISCUSSED PLAN OF CARE FOR PALLATIVE EXTUBATION 07/30. FINAL DISCHARGE STARTED. PT NOT A CANIDATE FOR ORGAN TRANSPLANT AT THIS TIME. CALL WITH TOD.
--- NOTE | 2025-07-28 19:35 | NUR ---
ASSUMPTION OF CARE CARE OF PT ASSUMED FOLLOWING BEDSIDE SHIFT REPORT FROM DAY RN. PT INTUBATED, WITH SETTINGS ACVC 12/325/12.0/90%, AND SEDATED ON 40 MCG/KG/MIN OF PROPOFOL, AND UNRESPONSIVE. TEMP IS 100.8F VIA RASHEED AND 97.8 VIA TEMPORAL PROBE. FENTANYL DRIP AT 100 MCG/KG/MIN. SINUS TACH AT 102 AND MAP > 65 ON 6 MCG/MIN OF NOREPINEPHRINE. SECRETIONS FROM ETT MODERATE, WHITE/YELLOW AND THICK; ORAL SECRETIONS THINNER AND MORE PREVALENT. TUBE IS 8.0 AND 22.0CM AT TEETH AFTER BEING PUSHED IN ONE CM SINCE LAST SHIFT. AIR MOVEMENT APPRECIATED IN ALL ANTERIOR LUNG CHAVEZ. AB DISTENDED AND RECTAL TUBE IN PLACE WITH MINIMAL OUTPUT REPORTED ON DAY SHIFT. WILL MONITOR. TF AT GOAL OF 20 ML/HR AND AB SOUNDS ARE HYPOACTIVE. TEMP RASHEED IN PLACE DRAINING KAYLYNN URINE TO GRAVITY. PT SKIN IN GROIN FOLDS AND AROUND ANUS IS INFLAMMED WITH DENUDED SKIN ALL ABOUT. NEW SKIN PICS TAKEN THIS MORNING BY DAY RN AND IN CHART. WILL REVIEW AND CONTINUE PLAN OF CARE.
[2025-07-29] VITALS (78 sets, daily range): BP systolic 74–101; BP diastolic 47–67
--- NOTE | 2025-07-29 00:27 | NUR ---
PT PARTNER REQUEST REGARDING PRESUMPTIVE COMFORT CARE TOMORROW. SHE WOULD LIKE TO BE ABLE TO HUG HER ONE LAST TIME BEFORE THE PT PASSES.
[2025-07-29 04:59] LABS: Hematocrit 27.0 % (33.0-51.0); Hemoglobin 8.4 g/dL (11.5-16.0); Mean Corpuscular HGB Conc 31.1 g/dL (31.5-36.5); Mean Corpuscular Volume 114 fL (80-100); NRBC ABSOLUTE 0.03 K/mm3 (0.00-0.02); NRBC Auto 0.2 /100 WBC (0.0-0.2); Platelet Count 147 K/mm3 (150-400); RDW Coefficient Variation 22.5 % (11.7-14.2); RDW Standard Deviation 93.8 fL (35.1-46.3)
[2025-07-29 05:21] LABS: Alanine Aminotransfer (ALT/SGP 41.0 U/L (12-78); Albumin, Blood 1.5 g/dL (3.4-5.0); Albumin/Globulin Ratio 0.3 (0.8-1.8); Anion Gap 7.0 mmol/L (3-11); Aspartate Aminotrans (AST/SGOT 71.0 U/L (12-37); Bilirubin, Total 3.8 mg/dL (0.1-1.0); Blood Urea Nitrogen 52.0 mg/dL (8-24); CO2, Blood 30.0 mmol/L (21-32); Calcium, Blood 8.6 mg/dL (8.5-10.1); Chloride, Blood 109.0 mmol/L (98-108); Creatinine, Blood 0.69 mg/dL (0.40-1.00); Globulin, Blood 5.3 g/dL (2.2-4.0); Glucose, Blood 203.0 mg/dL (70-99); Magnesium, Blood 1.9 mg/dL (1.6-2.4); Phosphorus, Blood 3.9 mg/dL (2.5-4.9); Potassium, Blood 3.9 mmol/L (3.5-5.5); Sodium, Blood 142.0 mmol/L (136-145); Total Protein, Blood 6.8 g/dL (6.4-8.2)
--- NOTE | 2025-07-29 07:40 | NUR ---
SHIFT SUMMARY PT REMAINS INTUBATED AND SEDATED ON 40 OF PROPOFOL AND 100 OF FENTANYL. STILL NO RESPONSIVENESS. A FEW REFLEXES ARE INTACT LIKE COUGH AND GAG. TEMP MAX WAS 100.9 AND ONE DOSE OF TYLENOL GIVEN, TEMP AT END OF SHIFT 98.8 F. PT STAYED IN SINUS RHYTHM WITH RATE 90-110 ALL SHIFT AND BP SOFT, REQUIRING 6 TO 8 MCG/KG/MIN OF LEVOPHED. VENT SETTINGS WERE CHANGED FROM ACVC+ TO ACPC 16/MIN, 380ML, 15.0 PEEP AND 90% FIO2 PRODUCING SAT OF > 90%. SECRETIONS DECREASED FROM PREVIOUS TWO NIGHTS. ALSO, CHANGE IN VENT SETTINGS COINCIDED WITH MUCH BETTER VENT COMPLIANCE. AB SOUNDS HYPOACTIVE THROUGHOUT. TF AT GOAL OF 20. RECTAL TUBE OUTPUT MINIMAL. TEMP RASHEED IN PLACE, DRAINED 400 KAYLYNN URINE DURING SHIFT. PATENCY ISSUE PREVIOUS SHIFT NOT AN ISSUE THIS SHIFT. RASHES IN GROIN AND BREAST FOLDS STILL SEVERE AND WERE TREATED WITH MOISTURE CONTROLLING MECHANISMS. BEDSIDE SHIFT REPORT GIVEN TO DAY RN.
[2025-07-29] MEDS ORDERED: Protein Supplement 30 ML UD PT SCH (09:00)
--- NOTE | 2025-07-29 09:21 | NUR ---
ASSUMED CARE AT 0700 PT SEDATED AND INTUBATED AT SHIFT CHANGE. SHE IS SEDATED WITH PROPOFOL INFUSING AT 40MCG/KG/MIN AND FENTANYL INFUSING AT 100MCG/MIN; NO GAG OR COUGH AT THIS TIME; PROPOFOL DECREASED TO 30MCG/KG/MIN. AFEBRILE. VENT SETTINGS AC/PC RATE 18, PEEP 15, FIO2 90%; SCANT AMOUNT OF SECREATIONS. HR 90-105. SBP 80-90'S WITH MAP 65-70; LEVOPHED INFUSING AT 10MCG/MIN. VHP INFUSING AT 20ML/HR (GOAL) WITH 30ML WATER FLUSHES Q4HR; RECTAL TUBE IN PLACE WITH LIQUID BROWN OUTPUT. RASHEED IN PLACE AND DRAINING TO GRAVITY. MEDIPORT TO RT CHEST WALL PATENT. POWERGLIDE TO RUE PATENT. PT S.O. AT BEDSIDE AND APPROPRIATE WITH PT AND STAFF. SEE SHIFT ASSESSMENT FOR FULL ASSESSMENT.
--- NOTE | 2025-07-29 18:25 | NUR ---
END OF SHIFT SUMMARY NO ACUTE EVENTS THIS SHIFT. PT CONT TO BE SEDATED WITH PROPOFOL, ORIGINALLY TITRATED DOWN TO 30MCG/KG/MIN BECAUSE OF RASS -5; MID DAY PT COUGH RETURNED AND RASS INCREASED TO +1 AND BECAME NONCOMPLIENT WITH VENT; PROPOFOL INCREASED BACK TO 40MCG/KG/MIN, FENTANYL INFUSING AT 100MCG/HR ALL DAY. AFEBRILE. VENT SETTINGS AC/PC RATE 18, PEEP 15, FIO2 90%. HR 90-105. SBP 80-90'S WITH MAP 65-72, LEVOPHED TITRATED UP TO 12MCG/MIN. VHP INFUSING AT GOAL VIA PEG TUBE; RECTAL TUBE IN PLACE WITH SMALL AMOUNT OF OUTPUT. RASHEED IN PLACE; RASHEED FLUSHED ONCE SUCESSFULLY. MEDIPORT TO RT CHEST WALL PATENT; POWERGLIDE TO RUE PATENT. WILL REPORT TO PM RN WHEN AVAILABLE. PT S.O. AT BEDSIDE ALL DAY AND IS VERY WITHDRAWN. SHE HAS NOT INTERACTED WITH STAFF LIKE PREVIOUS DAYS. ONE CONVERSATION TODAY REGARDING PICKING A HOME AFTER PT "PASSES TOMORROW". PT S.O. DOSE NOT HAVE A PLAN FOR HOME AND WILL PICK TOMORROW.
--- NOTE | 2025-07-29 19:33 | NUR ---
ASSUMPTION OF CARE: ASSUMED CARE AT START OF SHIFT (1899). REPORT RECEVIED FROM DAY SHIFT RN. PT IS DOING WELL AND RESTING IN BED. PT INTUBATED AND SEDATED, UNRESPONSIVE TO VERBAL STIMULI AT THIS TIME. PT IS ON PROPOFOL, LEVOPHED, AND FENTANYL GTT PER EMR ORDERS. LUNG SOUNDS ARE CLEAR BUT DIMINISHED IN BASES, VENT SETTINGS: ACPC- 18/15/90% SPO2 >95%. SINUS RYTHM WITH SBP: 80-90'S MAP >65 HR: 90'S. IV: POWERGLIDE IN RUE AND MEDIPORT IN R UPPER CHEST. OG TUBE IN PLACE AND CONNECTED TO TUBE FEED @ GOAL RATE. RASHEED CATHETER AND RECTAL TUBE IN PLACE AND DRAINING TO GRAVITY. LINES, CORDS, AND TUBES PLACED OUT OF REACH. CALL LIGHT PLACED WITHIN REACH AND BED PLACED IN LOWEST POSITION.
[2025-07-30] VITALS (55 sets, daily range): BP systolic 71–97; BP diastolic 53–75
--- NOTE | 2025-07-30 06:17 | NUR ---
SHIFT SUMMARY: PT IS DOING WELL, NO ACUTE CHANGES THROUGHOUT THE SHIFT. PT REMAINS INTUBATED AND SEDATED. ON FENTANYL, LEVOPHED, AND PROPOFOL GTT PER EMR ORDERS. VITAL SIGNS REMAIN STABLE. PT STILL UNRESPONSIVE TO STIMULI. IV: POWERGLIDE RUE AND MEDIPORT ACCESS IN R UPPER CHEST. RASHEED CATHETER AND RECTAL TUBE IN PLACE AND DRAINING TO GRAVITY. PEG TUBE IN PLACE AND CONNECTED TO CONTINUOUS TF AT GOAL RATE. LINES, CORDS, AND TUBES PLACED OUT OF REACH. CALL LIGHT PLACED WITHIN REACH. BED PLACED IN LOWEST POSITION.
--- NOTE | 2025-07-30 09:52 | NUR ---
ASSUMPTION OF CARE RECIEVED REPORT FROM [facility] NURSE. PT IS INTUBATED AND SEDATED. VENT SETTINGS AC/PC 18/15/90% FIO2 WITH SPO2 >92%. PT DOES NOT OPEN EYES, FOLLOW COMMANDS, OR MAKE ANY INTENTIONAL MOVEMENT. PT HAS PROP AND FENT GTTS. PT HR IN 90S, MAP >65 WITH LEVO AT 14. PT HAS TUBE FEEDINGS IN PEG TUBE INFUSING AT GOAL RATE. PT +3/+4 EDEMA IN EXTREMETIES AND GENERALIZED EDEMA. PT HAS RASHEED CATH AND RECTAL TUBE PATENT AND DRAINING TO GRAVITY. POWERGLIDE IN GENEVIEVE AND MEDIPORT, WNL. FAMILY AT BEDSIDE WITH NO NEEDS NOTED AT THIS TIME.
[2025-07-30] MEDS ORDERED: LORazepam 2 MG/ML 1ML Injection IV PRN (11:25)
[2025-07-30] MEDS ORDERED: Atropine Sulfate 1% Opth Soln 2ML BTL SL PRN (13:40)
--- NOTE | 2025-07-30 15:00 | NUR ---
PT PT TERMINALLY EXTUBATED AT 1425 WITH COMFORT CARE. AND DAUGHTER AT BEDSIDE. PT REMAINED ON FENT GTTS. PT AT 1455, TWO RN VERIFIED. FAMILY AT BEDSIDE. FAMILY CONFIRMED ALL BELONGINGS WERE OBTAINED. NO NEEDS FROM FAMILY AT THIS TIME.
== END 2025-07-30 14:55 | DRG 870 ==
LOC: ER 17:37 → MEDS 22:13 → ICUE 22:13 → ERHOLD 22:13 → MEDS 07-13 01:12 → ICUE 07-13 12:48
PROVIDERS: Emergency Medicine; Family Medicine; Internal Medicine; Internal Medicine Critical Care Medicine; Nurse Practitioner Acute Care; Student in an Organized Health Care Education/Training Program; ADMIT Student in an Organized Health Care Education/Training Program
PROC: 3E03329 Introduction of Other Anti-infective into Peripheral Vein, Percutaneous Approach (ICD-10-PCS; 2025-07-12)
PROC: 4A133R1 Monitoring of Arterial Saturation, Peripheral, Percutaneous Approach (ICD-10-PCS; 2025-07-13)
PROC: 3E033XZ Introduction of Vasopressor into Peripheral Vein, Percutaneous Approach (ICD-10-PCS; 2025-07-13)
PROC: 5A0935A Assistance with Respiratory Ventilation, Less than 24 Consecutive Hours, High Flow/Velocity Cannula (ICD-10-PCS; 2025-07-13)
PROC: 5A1955Z Respiratory Ventilation, Greater than 96 Consecutive Hours (ICD-10-PCS; principal; 2025-07-14)
PROC: 0BH17EZ Insertion of Endotracheal Airway into Trachea, Via Natural or Artificial Opening (ICD-10-PCS; 2025-07-14)
PROC: 5A09357 Assistance with Respiratory Ventilation, Less than 24 Consecutive Hours, Continuous Positive Airway Pressure (ICD-10-PCS; 2025-07-14)
PROC: 0T9B70Z Drainage of Bladder with Drainage Device, Via Natural or Artificial Opening (ICD-10-PCS; 2025-07-14)
PROC: 3E0G76Z Introduction of Nutritional Substance into Upper GI, Via Natural or Artificial Opening (ICD-10-PCS; 2025-07-15)
PROC: 30233J1 Transfusion of Nonautologous Serum Albumin into Peripheral Vein, Percutaneous Approach (ICD-10-PCS; 2025-07-17)
PROC: 30233N1 Transfusion of Nonautologous Red Blood Cells into Peripheral Vein, Percutaneous Approach (ICD-10-PCS; 2025-07-19)
PROC: 0B928ZX Drainage of Carina, Via Natural or Artificial Opening Endoscopic, Diagnostic (ICD-10-PCS; 2025-07-21)
DX: A41.89 Other specified sepsis (principal); R65.21 Severe sepsis with septic shock; J12.89 Other viral pneumonia; J15.9 Unspecified bacterial pneumonia; J80 Acute respiratory distress syndrome; G92.8 Other toxic encephalopathy; J69.0 Pneumonitis due to inhalation of food and vomit; Z51.5 Encounter for palliative care; Z66 Do not resuscitate; E87.21 Acute metabolic acidosis; L03.311 Cellulitis of abdominal wall; J81.1 Chronic pulmonary edema; E87.0 Hyperosmolality and hypernatremia; C16.0 Malignant neoplasm of cardia; C79.9 Secondary malignant neoplasm of unspecified site; A09 Infectious gastroenteritis and colitis, unspecified; Z78.1 Physical restraint status; F31.9 Bipolar disorder, unspecified; M19.90 Unspecified osteoarthritis, unspecified site; R74.01 Elevation of levels of liver transaminase levels; L89.151 Pressure ulcer of sacral region, stage 1; F60.3 Borderline personality disorder; E87.70 Fluid overload, unspecified; L02.221 Furuncle of abdominal wall; D53.9 Nutritional anemia, unspecified; F40.01 Agoraphobia with panic disorder; E66.9 Obesity, unspecified; F43.12 Post-traumatic stress disorder, chronic; K76.0 Fatty (change of) liver, not elsewhere classified; E11.40 Type 2 diabetes mellitus with diabetic neuropathy, unspecified; D69.59 Other secondary thrombocytopenia; D64.81 Anemia due to antineoplastic chemotherapy; T45.1X5A Adverse effect of antineoplastic and immunosuppressive drugs, initial encounter; R45.1 Restlessness and agitation; E87.6 Hypokalemia; E83.39 Other disorders of phosphorus metabolism; Z68.36 Body mass index [BMI] 36.0-36.9, adult; Z93.1 Gastrostomy status; Z86.711 Personal history of pulmonary embolism; Z87.891 Personal history of nicotine dependence; Z88.0 Allergy status to penicillin; Z88.6 Allergy status to analgesic agent; Z88.8 Allergy status to other drugs, medicaments and biological substances; Z79.4 Long term (current) use of insulin; Z79.84 Long term (current) use of oral hypoglycemic drugs; Z79.891 Long term (current) use of opiate analgesic; Z91.198 Patient's noncompliance with other medical treatment and regimen for other reason; Z86.19 Personal history of other infectious and parasitic diseases; Z90.49 Acquired absence of other specified parts of digestive tract
CPT/HCPCS: 0202U; 0528U; 31500; 36415; 36600; 51702; 70450; 71045; 71260; 74177; 80048; 80053; 80069; 80076; 80202; 81001; 82330; 82803; 82947; 83605; 83735; 83880; 83993; 84100; 84132; 84145; 85014; 85018; 85025; 85027; 85045; 85379; 85520; 85610; 85730; 86140; 86850; 86900; 86901; 86923; 87040; 87070; 87086; 87205; 87449; 93005; 93010; 93308; 93321; 94002; 94003; 94640; 94660; 94664; 94667; 94668; 94760; 94762; 96374; 96375; 99285-25; A9270; C1751; C1894; J0456; J0612; J0692; J0696; J1120; J1642; J1644; J1650; J1815; J1938; J2060; J2185; J2270; J2470; J2704; J3010; J3373; J3475; J3480; J7030; J7040; J7050; J7060; P9016; P9047; Q9967

== ENCOUNTER → 2025-07-12 | Outpatient (CLI) | payer OTHER ==
[~2025-07-12] MED LIST changes: +NYSTRIT TOP
== END ==
LOC: LAB 19:05 → LAB SHORT 19:05
DX: R21 Rash and other nonspecific skin eruption (principal)
CPT/HCPCS: 87070; 87077; 87147; 87186; 87205